=== PATIENT | female | born 1970 | race Caucasian/White ===

== ENCOUNTER 2021-10-27 12:13 | Inpatient (IN) | payer SELFPAY ==
[2021-10-27] VITALS (79 sets, daily range): BP systolic 99–136; BP diastolic 43–92; PULSE 73–118; RESP 15–43; TEMP 31–37.2; O2SAT 67–97
--- NOTE | 2021-10-27 12:30 | RT.EKG_ITS ---
APPROVED REPORT Exam: Resting ECG Reason for Exam: sob Patient Location: E HR:112 bpm ECG Measurements Heart Rate 112 AXIS RI 136 P 44 QRSd 87 QRS 107 QT 320 T -9 QTc 437 Conclusion Sinus tachycardia...rate> 99
--- NOTE | 2021-10-27 12:49 | ED.GENADUL_ITS ---
Discharge Plan Disposition Patient Disposition: [facility] INPATIENT Condition: Serious Discharge Details Clinical Impression: COVID-19, Acute respiratory failure with hypoxia, Newly diagnosed diabetes Admit Date/Time: 10/27/21 15:55 Admit Provider: Aubrie Lewis Attending Provider: Aubrie Lewis Primary Care Provider: Suraj Laboy ED Provider: France Maynard Discharge Data Discharge Date/Time-TO BE ENTERED AT DEPARTURE: 10/27/21 17:32 Medical Decision Making Patient is a pleasant 51-year-old female presenting today with chief complaint of shortness of breath in the setting of being Covid positive. She reports that she was diagnosed Covid positive on October 19. States that her shortness of breath has remained fairly consistent throughout the entire time. She denies any chest pain. States that she is also having diarrhea. Describes general malaise, body ache fatigue. States that she has been sleeping frequently comes in today states that she is not getting any better and was having difficulty taking deep breath. Patient is not anticoagulated, no hormonal supplementation, no family history of blood clots. Patient is not a smoker. Patient is not vaccinated. On exam, patient appears acutely ill. She does demonstrate work of breathing with intercostal retractions and accessory muscle use. She does appear very fatigued. Is having difficulty with movements but again, appears very fatigue and coughs frequently. Her oxygen was initially 67% on room air. Nursing staff immediately applied nasal cannula which brought her up to 74%. He is currently on a nonrebreather at 80%. RT is coming in and will apply additional support. Her lungs are fairly clear although she has difficulty taking deep breaths. Concerned for her level of hypoxia. BiPAP being applied by RT. ECG ordered. No CP or symptoms of ACS. More concerned for severe COVID and possible complication such as PE. Will obtain labs. She appears dehydrated, will give 500cc bolus. Will give 6mg Dexamethasone, 200mg Remdesivir. Will give IV APAP for discomfort. Labs reviewed. No leukocytosis. Stable H&H. D-dimer is elevated at 2600, will obtain a CT for PE protocol. Lactate slightly elevated at 1.7. Patient has an anion gap of 17. BUN is elevated at 20. Glucose 419. Patient denies being diabetic but reports that she is not been seen by a doctor in many years because she is relatively healthy. Ferritin was elevated at 405. AST is elevated 64. We do not have any previous labs for comparison. Her LDH is elevated at 601, CRP over 25. Troponin within normal limits. Will add on an A1c. Patient reports that she is feeling improved with the BiPAP and oxygen has been maintained in the mid to high 90s. Patient is rotating from side to side to encourage alveolar recruitment. CT for PE protocol reviewed by radiologist: FINDINGS: Pulmonary arteries: No main pulmonary arterial embolism. Limited evaluation of the lobar and segmental branches. Aorta: Unremarkable. No aortic aneurysm. No aortic dissection. Lungs: There are bilateral, peripheral predominant ground-glass/airspace opacities in the lungs. Pleural spaces: Unremarkable. No pneumothorax. No pleural effusion. Heart: Unremarkable. No cardiomegaly. No pericardial effusion. Lymph nodes: Unremarkable. No enlarged lymph nodes. Bones/joints: Unremarkable. No acute fracture. Soft tissues: Unremarkable. IMPRESSION: 1. No central pulmonary embolism. 2. Commonly reported imaging features of viral pneumonia are present. Discussed findings. She continues to need BiPAP but does not appear to have further work of breathing. Will require admission. Consulted with hospitalist, she advised to start on abx. Also advised Baracitinib. She agrees to accept patient for ICU admission. HPI General Mode of arrival: wheelchair . Date/Time Provider Initiated Documentation: 10/27/21 12:26 . Limitations to Documentation: no limitations . Information obtained by: patient and RN notes reviewed . History of Present Illness 51 year old F presents to the emergency department with the chief complaint of SOB, COVID +, described as moderate, Quality is described as aching (reports general body aches), Patient started experiencing this day(s) (States positive test was October 19, became symptomatic a few days prior) and it has been constant. Immobilization improves symptom(s), Movement worsens symptoms (becomes more SOB with any movement) . Patient notes cough, fever/chills, headaches and shortness of breath; denies chest pain, diaphoresis, loss of appetite, nausea/vomiting (reports diarrhea) and rash. Patient did receive the following treatments prior to arrival, none Related Data Allergies Allergy/AdvReac Type Severity Reaction Status Date / Time No Known Allergies Allergy Unverified 11/10/14 11:13 General Stated Complaint: RespSymp TAVON: 2 Review of Systems Constitutional Constitutional: Reports as per HPI, Reports chills, Reports daytime sleepiness, Reports fatigue, Reports fever(s), Reports headache(s) and Reports lethargy ENT Ears, Nose, Mouth, and Throat: Denies dizziness and Reports headache(s) Cardiovascular Cardiovascular: Reports as per HPI, Denies chest pain, Denies chest pain at rest, Denies chest pain with activity, Denies radiating jaw, neck or arm pain, Reports dyspnea and Reports dyspnea on exertion Respiratory Respiratory: Reports as per HPI, Reports chest congestion, Reports cough, Denies pain on inspiration, Denies pain with cough, Reports dyspnea, Reports dyspnea on exertion and Denies wheezing Gastrointestinal Gastrointestinal: Reports as per HPI, Denies abdominal pain, Reports diarrhea, Denies nausea and Denies vomiting Musculoskeletal Musculoskeletal: Reports as per HPI and Denies back pain Integumentary/Breasts Skin/Breast: Reports as per HPI and Denies rash Neurologic Neurologic: Reports as per HPI, Denies dizziness and Reports headache(s) Endocrine Endocrine: Reports fatigue Allergic/Immunologic Allergic/Immunologic: Denies wheezing PFSH All Active Problems (Updated 10/29/21 @ 14:11 by SASMON Junior) Discharge planning issues (Acute) DVT prophylaxis (Acute) Newly diagnosed diabetes (Acute) Acute respiratory failure with hypoxia (Acute) COVID-19 (Acute) Medical History (Updated 10/29/21 @ 14:11 by SAMSON Junior) Obesity (BMI 30-39.9) Surgical History (Updated 08/20/18 @ 14:37 by [employer] [facility]) section Social History (Updated 10/27/21 @ 18:28 by Aubrie Lewis MD) Smoking/Tobacco Use Status: Never Smoking risk assessment performed?: Yes Alcohol Intake: never Drug use: Never Exam Const General: cooperative, not healthy appearing, comfortable, no acute distress, well developed, acute distress respiratory and ill appearing acutely Nutritional Appearance: well nourished and overweight Orientation: alert, awake and oriented x3 HENMT Head: normal to inspection Ears: hearing grossly normal bilaterally Neck Neck: normal visual inspection, full ROM and no lymphadenopathy Chest Chest: normal inspection of the chest, normal palpation of entire chest wall and no crepitus Resp Effort & Inspection: cough, labored, nasal flaring, respiratory distress, no stridor, tachypneic and uses accessory muscles Auscultation: clear to auscultation bilaterally (diminished), no rales, no rhonchi and no wheezes Cardio Rate: tachycardic Rhythm: regular rhythm Heart Sounds: S1 normal and S2 normal GI Inspection: normal to inspection, no edema and non-distended Palpation: soft, no hepatosplenomegaly, not firm, no guarding, not rigid and nontender Auscultation: normal bowel sounds Skin General skin exam: no rashes or lesions noted Trauma: no lacerations or abrasions Neuro General: patient alert, patient awake and patient oriented x3 Cognition: normal cognition Speech: speech normal Gait: other (patient in wheelchair) Extrem General: normal to inspection, capillary refill normal, no pedal edema and no calf tenderness Psych Appearance: grossly normal and well kempt Mental Status: mental status grossly normal Speech and Movement: speech and movement normal Course Vital Signs Vital signs: Vital Signs Temperature 37.2 C 10/27/21 12:30 Pulse 118 H 10/27/21 12:30 Blood Pressure 136/74 10/27/21 12:30 Pulse Oximetry 67 L 10/27/21 12:30 Temperature 37.2 C 10/27/21 12:30 Pulse 118 H 10/27/21 12:30 Blood Pressure 136/74 10/27/21 12:30 Pulse Oximetry 67 L 10/27/21 12:30 Oxygen Delivery Method Room Air 10/27/21 12:30 Oxygen Flow Rate 0 10/27/21 12:30 Critical Care Time Critical Care Time Critical Care Time: Yes Total Critical Care Time: 47 Attestation: 47 minutes of critical care time for management of respiratory distress
[2021-10-27 13:33] LABS: Lactate 1.7 mmol/L (0.6-1.4)
[2021-10-27 13:37] LABS: Abs Immature Grans 0.29 10^3/uL (0.0-0.06); HCT 41.1 % (36.0-46.0); HGB 13.1 g/dL (11.2-15.7); MCHC 31.9 % (32.0-36.0); MCV 87.8 fL (80-95); MPV 9.6 fL (8.0-11.0); Nucleated RBC 0 %; Platelet Count 415 10^3/uL (130-400); RBC 4.68 10^6/uL (3.93-5.22); WBC 7.22 10^3/uL (4.4-10.8)
[2021-10-27] MEDS: Normal Saline 500 ML IV (13:37)
[2021-10-27] MEDS: Dexamethasone 4 MG/ML VIAL 6 MG IVP (13:38)
[2021-10-27] MEDS: ACETAMINOPHEN 1,000 MG/100 ML BTL 400 MG IVPB (13:38)
[2021-10-27 13:51] LABS: ALT 49 U/L (14-59); AST 64 U/L (15-37); Absolute Lymphocyte Count 1.52 10^3/uL (1.2-3.4); Absolute Monocyte Count 0.29 10^3/uL (0.1-0.8); Absolute Neutrophil Count 5.13 10^3/uL (1.2-6.7); Albumin 2.3 g/dL (3.4-5.0); Alkaline Phosphatase 75 U/L (46-116); Anion Gap 17.1 mmol/L (3-11); BUN 20 mg/dL (7-18); Bands % 5; Bilirubin, Total 0.6 mg/dL (0.2-1.0); CO2 21.9 mmol/L (21.0-32.0); Calcium 8.9 mg/dL (8.5-10.1); Chloride 96 mmol/L (98-107); Estimated GFR 58.69 (mL/min/1.73m2); Glucose 419 mg/dL (74-106); LDH 601 U/L (81-234); Metamyelocytes % 1; Myelocytes % 3; Potassium 4.1 mmol/L (3.5-5.1); Sodium 135 mmol/L (136-145); Total Protein 8.1 g/dL (6.4-8.2); Troponin I < 50 ng/L (<or=60)
[2021-10-27 13:52] LABS: Diff Comment Manual Differential; RBC Morphology Normal
[2021-10-27 14:01] LABS: C-Reactive Protein > 25.00 mg/dL (0.0-0.3)
[2021-10-27] MEDS: REMDESIVIR 200 MG in Normal Saline 250 ML 250 MG IVPB (14:01)
[2021-10-27 14:03] LABS: Procalcitonin 1.7 ng/mL
[2021-10-27 14:06] LABS: D-Dimer 2602 ng/mlFEU (<500)
--- NOTE | 2021-10-27 14:07 | DI.CT_ITS ---
Exam(s) CT CHEST PE CTA EXAM: CT CHEST PE CTA CLINICAL HISTORY: COVID +, elevated dimer, hypoxic. TECHNIQUE: Imaging Protocol: CT angiography of the chest was performed using pulmonary embolus casandra col. Multi planar reconstructions were performed. CONTRAST MATERIAL: Intravenous: Omnipaque 350 Contrast volume: 100 cc COMPARISON: No exams were available for comparison FINDINGS: CHEST: PULMONARY ARTERIES: Less than optimal opacification of non central pulmonary arteries. There are no obvious central intraluminal filling defects to suggest acute pulmonary emboli of the central pulmona ry vasculature.. LUNGS: Extensive bilateral ground-glass infiltrates involving all lobes both lungs and not associated with pleural effusions.. Findings are highly suggestive of Covid-19 pneumonia. No focal findings i n trachea and mainstem bronchi. No bronchiectasis MEDIASTINUM: There is no hilar nor mediastinal adenopathy. Visualized thyroid unremarkable. CARDIAC: Heart size is upper normal. There is no pericardial effusion.Caliber of the thoracic aorta is within normal limits. There is no prominent shift of the interventricular septum. PARTIALLY VISUALIZED UPPERMOST ABDOMEN: Hepatic steatosis. No adrenal masses. OSSEOUS: No significant osseous lesions.. IMPRESSION: 1. No evidence of acute pulmonary emboli. No evidence of pulmonary infarction.No pleural effusions. 2. Extensive bilateral ground-glass infiltrates which are highly suspicious for viral Covid-19 pneumo ratna. 3. Hepatic steatosis incidentally noted. RADIATION DOSE DELIVERED: 655.76mGy.cm Total DLP DATA REPOSITORY: All CT scans at this facility are submitted to the National Radiology Data Registry (NRDR) Dose Index Registry (DIR) with the [employer] ([employer]). RADIATION OPTIMIZATION: All CT scans at this facility use at least one of these dose optimization te chniques: automated exposure control; mA and/or kV adjustment per patient size (includes targeted exa ms where dose is matched to clinical indication); or iterative reconstruction.
[2021-10-27 14:18] LABS: Ferritin 405 ng/mL (8-252)
[2021-10-27 14:50] LABS: Hemoglobin A1C 12.9 % (<5.7)
[2021-10-27] MEDS: Omnipaque 350 MG/ML 100 ML BTL IV (14:51)
[2021-10-27] MEDS: Normal Saline Flush 10 ML SYR IVP (14:52)
--- NOTE | 2021-10-27 15:42 | DI.VRAD_ITS ---
PROCEDURE INFORMATION: Exam: CTA Chest With Contrast Exam date and time: 10/27/2021 2:54 PM Age: 51 years old Clinical indication: Shortness of breath; Patient HX: + covid TECHNIQUE: Imaging protocol: Computed tomographic angiography of the chest with contrast. 3D rendering (Not supervised by radiologist): MIP and/or 3D reconstructed images were created by the technologist. Total images: 1922 Radiation optimization: All CT scans at this facility use at least one of these dose optimization techniques: automated exposure control; mA and/or kV adjustment per patient size (includes targeted exams where dose is matched to clinical indication); or iterative reconstruction. Contrast material: OMNIPAQUE 350; Contrast volume: 100 ml; Contrast route: INTRAVENOUS (IV); COMPARISON: No relevant prior studies available. FINDINGS: Pulmonary arteries: No main pulmonary arterial embolism. Limited evaluation of the lobar and segmental branches. Aorta: Unremarkable. No aortic aneurysm. No aortic dissection. Lungs: There are bilateral, peripheral predominant ground-glass/airspace opacities in the lungs. Pleural spaces: Unremarkable. No pneumothorax. No pleural effusion. Heart: Unremarkable. No cardiomegaly. No pericardial effusion. Lymph nodes: Unremarkable. No enlarged lymph nodes. Bones/joints: Unremarkable. No acute fracture. Soft tissues: Unremarkable. IMPRESSION: 1. No central pulmonary embolism. 2. Commonly reported imaging features of viral pneumonia are present. Dictated and Authenticated by: Emma Palmer MD. Ordering:GARETH Hough MD
--- NOTE | 2021-10-27 16:02 | HPE_ITS ---
Date of service: 10/27/21 Time of Service: 16:02 Assessment and Plan Assessment and plan (1) Acute respiratory failure with hypoxia: Status: Acute Assessment and plan: Multifactorial, due to COVID-19 as well as likely superimposed bacterial process. On CPAP. Encouage proning, IS/acapella. Treat with remdesivir, dexamethasone, baricitinib, empiric abx, vitamin C/D, zinc, atorvastatin. (2) COVID-19: Status: Acute Assessment and plan: As above (3) Newly diagnosed diabetes: Status: Acute Assessment and plan: Start on basal bolus insulin. Obtain UA. Suspect mild DKA, which we may be able to treat without IV insulin. Repeat BMP. (4) Metabolic acidosis: Status: Acute Assessment and plan: As above (5) Dehydration: Status: Acute Assessment and plan: Gentle IVF were given in the ED. The patient is able to hydrate herself orally - will avoid additional IVF at this time (6) Obesity (BMI 30-39.9): Assessment and plan: Needs outpatient follow up for lifestyle modifications (7) DVT prophylaxis: Status: Acute Assessment and plan: SC enoxaparin (8) Discharge planning issues: Status: Acute Assessment and plan: Full code Admit to ICu Total Critical Care Time 45 minutes History of Present Illness History of Present Illness Chief Complaint: Shortness of breath Narrative: Ms Humphries is a 51 year old female with no PMHx (per patient) but has BMI of 38.1 who was not vaccinated against COVID-19 and tested positive for COVID-19 on 10/19, who presented to [facility] ED today c/o shortness of breath and not feeling well. Her O2 sats on room air were 67%. She saturated 80% on 15 L nonrebreather, so she was transitioned to CPAP with FiO2 of 60% and pressure of 12, saturating 95%. Her CTA ruled out PE. She was initiated on dexamethasone, remdesivir, and baricitinib. Hospitalist admission to the ICU was requested. Of note, the patient did have evidence of elevated procalcitonin and was also written for empiric doxycycline/ceftriaxone. Her A1C is 12.9, of which she was made aware in the ED. Review of Systems All systems reviewed & are unremarkable except as noted in HPI and below PFSH All Active Problems (Updated 10/27/21 @ 18:01 by Aubrie Lewis MD) Discharge planning issues (Acute) DVT prophylaxis (Acute) Metabolic acidosis (Acute) Dehydration (Acute) Newly diagnosed diabetes (Acute) Acute respiratory failure with hypoxia (Acute) COVID-19 (Acute) Medical History (Updated 10/27/21 @ 18:01 by Aubrie Lewis MD) Obesity (BMI 30-39.9) Surgical History (Updated 08/20/18 @ 14:37 by [employer]) section Social History (Updated 10/27/21 @ 18:28 by Aubrie Lewis MD) Smoking/Tobacco Use Status: Never Smoking risk assessment performed?: Yes Alcohol Intake: never Drug use: Never Meds Allergies and Home Medications Allergies Allergy/AdvReac Type Severity Reaction Status Date / Time No Known Allergies Allergy Unverified 11/10/14 11:13 Exam Narrative Exam Narrative: General: Pleasant obese female who is laying on her L side, on CPAP, FiO2 60%, Pressure of 12, no visible work of breathing, but does not look well Neurological: A&Ox3, no focal deficits Psychiatric: Appropriate speech pattern/content Skin: Visible skin intact HEENT: Atraumatic, normocephalic, EOMI, unable to see mucuous membranes or examine oropharynx due to CPAP use, no submandibular or cervical lymphadeno jacques, no goiter or JVD Cardiovascular: RRR, no m/r/g Lungs: faint crackles L lung, diminished breath sounds R lung Gastrointestinal: soft, nontender, nondistended Genitourinary: deferred Extremities: trace edema BLE's, no lesions on B feet, trace pedal pulse RLE, +1 pedal pulse LLE, no clubbing/cyanosis Results Imaging Additional studies: CTA chest: 1. No evidence of acute pulmonary emboli. No evidence of pulmonary infarction.No pleural effusions. 2. Extensive bilateral ground-glass infiltrates which are highly suspicious for viral Covid-19 pneumonia. 3. Hepatic steatosis incidentally noted. EKG: ST, HR 112, no acute ischemia Labs Result diagrams: 10/27/21 13:25 10/27/21 13:25 Labs: Laboratory Results - last 24 hr 10/27/21 10/27/21 10/27/21 13:25 13:25 13:25 WBC 7.22 RBC 4.68 Hgb 13.1 Hct 41.1 MCV 87.8 MCH 28.0 MCHC 31.9 L RDW 13.0 Plt Count 415 H MPV 9.6 Immature Gran % See Differential Neutrophils % 66.0 Band Neutrophils % 5 Lymphocytes % 21.0 Monocytes % 4.0 Eosinophils % 0.0 Basophils % 0.0 Metamyelocytes % 1 Myelocytes % 3 Nucleated RBC % 0 Absolute Neutrophils 5.13 Absolute Lymphocytes 1.52 Absolute Monocytes 0.29 Absolute Eosinophils 0.00 Absolute Basophils 0.00 RBC Morphology Normal D-Dimer VBG Lactate 1.7 H Sodium 135 L Potassium 4.1 Chloride 96 L Carbon Dioxide 21.9 Anion Gap 17.1 H BUN 20 H Creatinine 1.0 Estimated GFR/1.73 m2 58.69 Glucose 419 H Hemoglobin A1c Calcium 8.9 Ferritin 405 H Total Bilirubin 0.6 AST 64 H ALT 49 Alkaline Phosphatase 75 Lactate Dehydrogenase 601 H Troponin I < 50 C-Reactive Protein > 25.00 H Total Protein 8.1 Albumin 2.3 L Procalcitonin 1.7 10/27/21 10/27/21 13:25 13:25 WBC RBC Hgb Hct MCV MCH MCHC RDW Plt Count MPV Immature Gran % Neutrophils % Band Neutrophils % Lymphocytes % Monocytes % Eosinophils % Basophils % Metamyelocytes % Myelocytes % Nucleated RBC % Absolute Neutrophils Absolute Lymphocytes Absolute Monocytes Absolute Eosinophils Absolute Basophils RBC Morphology D-Dimer 2602 H VBG Lactate Sodium Potassium Chloride Carbon Dioxide Anion Gap BUN Creatinine Estimated GFR/1.73 m2 Glucose Hemoglobin A1c 12.9 H Calcium Ferritin Total Bilirubin AST ALT Alkaline Phosphatase Lactate Dehydrogenase Troponin I C-Reactive Protein Total Protein Albumin Procalcitonin Last Vital Signs Temp 37.2 C 10/27/21 12:30 Pulse 103 H 10/27/21 14:41 Resp 18 10/27/21 15:41 BP 123/67 10/27/21 15:41 Pulse Ox 94 10/27/21 15:41
--- NOTE | 2021-10-27 16:22 | NUR.NOTE ---
1620 assisted OOB to commode. Patient very weak. Remains on Bipap.
[2021-10-27 16:39] LABS: Troponin I < 50 ng/L (<or=60)
[2021-10-27 17:00] LABS: Source Nasal/Nares
[2021-10-27 17:03] LABS: COVID-19 PCR POSITIVE (Negative)
[2021-10-27 19:07] LABS: Anion Gap 16.7 mmol/L (3-11); BUN 21 mg/dL (7-18); CO2 22.3 mmol/L (21.0-32.0); CREATININE 0.8 mg/dL (0.55-1.02); Calcium 8.3 mg/dL (8.5-10.1); Chloride 100 mmol/L (98-107); Glucose 384 mg/dL (74-106); Potassium 4.7 mmol/L (3.5-5.1); Sodium 139 mmol/L (136-145)
[2021-10-27] MEDS: Benzonatate 200 MG CAP PO (19:15)
[2021-10-27] MEDS: Atorvastatin 40 MG TAB PO (19:16)
[2021-10-27] MEDS: Famotidine 20 MG TAB PO (19:16)
[2021-10-27] MEDS: cefTRIAXone 2 GM/50 ML BAG IVPB (19:16)
[2021-10-27] MEDS: Normal Saline 500 ML 30 ML IV (19:16)
[2021-10-27] MEDS: Ascorbic Acid 500 MG TAB 1000 MG PO (19:16)
[2021-10-27] MEDS: Enoxaparin 40 MG/0.4 ML SYR SC (19:35)
[2021-10-27] MEDS: Insulin Aspart 300 UNITS/3 ML PEN SC ×2 (20:00→22:58)
[2021-10-27] MEDS: Ipratropium/Albuterol 4 GM 120 PUFF INH IH (20:42)
[2021-10-27 20:48] LABS: BE (Venous) -6 mmol/L (-2-3); HCO3 (Venous) 21 mmol/L (23-28); O2 Sat (Venous) 96 %; TCO2 (Venous) 19 mmol/L (24-29); pCO2 (Venous) 43 mmHg (41-51); pH (Venous) 7.29 (7.31-7.41); pO2 (Venous) 87 mmHg
[2021-10-27 20:50] LABS: Lactate 1.5 mmol/L (0.6-1.4)
[2021-10-27 21:13] LABS: Bilirubin Negative (Negative); Blood Large (Negative); Clarity Sl Cloudy (Clear); Glucose 500 mg/dL (Negative); Ketones 80 mg/dL (Negative); Leukocyte Esterase Negative (Negative); Nitrite Negative (Negative); Urobilinogen 0.2 EU/dL (Up TO 0.2); pH 5.5 (5-8)
[2021-10-27 21:22] LABS: Bacteria Few HPF (Negative); C & S Indicated? No/Sq. Contamination; Casts Negative LPF (Negative); Crystals Few Amorphous HPF (Negative); Epithelial Cells Moderate HPF (Negative); Mucus Negative (Negative); RBC >50 HPF (0-2)
[2021-10-27] MEDS: Melatonin 3 MG TAB PO (22:04)
[2021-10-27] MEDS: Insulin Glargine 300 UNITS/3 ML PEN 10 UNITS SC (22:58)
[2021-10-28] VITALS (119 sets, daily range): BP systolic 93–121; BP diastolic 44–66; PULSE 57–104; RESP 12–45; TEMP 31–38; O2SAT 83–98
[2021-10-28 02:16] LABS: Anion Gap 14.8 mmol/L (3-11); BUN 23 mg/dL (7-18); CO2 23.2 mmol/L (21.0-32.0); CREATININE 0.9 mg/dL (0.55-1.02); Calcium 8.6 mg/dL (8.5-10.1); Chloride 103 mmol/L (98-107); Glucose 359 mg/dL (74-106); Potassium 4.7 mmol/L (3.5-5.1); Sodium 141 mmol/L (136-145)
[2021-10-28 03:50] LABS: Anion Gap 13.9 mmol/L (3-11); BUN 26 mg/dL (7-18); CO2 24.1 mmol/L (21.0-32.0); CREATININE 0.9 mg/dL (0.55-1.02); Calcium 8.3 mg/dL (8.5-10.1); Chloride 102 mmol/L (98-107); Glucose 356 mg/dL (74-106); Potassium 4.5 mmol/L (3.5-5.1); Sodium 140 mmol/L (136-145)
[2021-10-28] MEDS: DOXYCYCLINE 100 MG in Normal Saline 100 ML IVPB ×3 (04:00→15:39)
[2021-10-28] MEDS: INSULIN REGULAR IN 0.9 % NACL 100 UNIT/100 ML BAG IV ×2 (05:00→07:11)
[2021-10-28 06:06] LABS: HCT 38.2 % (36.0-46.0); HGB 11.9 g/dL (11.2-15.7); MCH 27.9 pg (27.0-33.0); MCHC 31.2 % (32.0-36.0); MCV 89.5 fL (80-95); MPV 9.4 fL (8.0-11.0); Nucleated RBC 0 %; Platelet Count 407 10^3/uL (130-400); RBC 4.27 10^6/uL (3.93-5.22); RDW 13.4 % (11.7-14.6); RDW-SD 44.4 fL; WBC 5.92 10^3/uL (4.4-10.8)
[2021-10-28 06:34] LABS: ALT 45 U/L (14-59); AST 52 U/L (15-37); Albumin 1.9 g/dL (3.4-5.0); Alkaline Phosphatase 66 U/L (46-116); Anion Gap 14.1 mmol/L (3-11); BUN 24 mg/dL (7-18); Bilirubin, Direct 0.2 mg/dL (0.0-0.2); Bilirubin, Total 0.4 mg/dL (0.2-1.0); CO2 23.9 mmol/L (21.0-32.0); Calcium 8.4 mg/dL (8.5-10.1); Chloride 104 mmol/L (98-107); Estimated GFR 58.69 (mL/min/1.73m2); Glucose 357 mg/dL (74-106); Magnesium 2.7 mg/dL (1.8-2.4); PHOSPHORUS 3.6 mg/dL (2.6-4.7); Potassium 4.5 mmol/L (3.5-5.1); Sodium 142 mmol/L (136-145); Total Protein 7.1 g/dL (6.4-8.2)
[2021-10-28 06:35] LABS: C-Reactive Protein > 25.00 mg/dL (0.0-0.3)
[2021-10-28 06:37] LABS: Prothrombin Time 10.4 sec (9.3-11.0)
[2021-10-28 06:50] LABS: D-Dimer 2708 ng/mlFEU (<500)
[2021-10-28 06:59] LABS: Calculated LDL 99 mg/dL (<100); Cholesterol 156 mg/dL (<200); Ferritin 418 ng/mL (8-252); HDL Cholesterol 17 mg/dL (40-60); Triglyceride 203 mg/dL (<150)
[2021-10-28 07:17] LABS: Absolute Lymphocyte Count 0.83 10^3/uL (1.2-3.4); Absolute Monocyte Count 0.47 10^3/uL (0.1-0.8); Absolute Neutrophil Count 4.62 10^3/uL (1.2-6.7); Atypical Lymphocytes % 2; Bands % 5; Diff Comment Manual Differential; RBC Morphology Normal
--- NOTE | 2021-10-28 08:24 | SCONE_ITS ---
Date of service: 10/28/21 Time of Service: 08:24 [facility] All Active Problems (Updated 10/27/21 @ 18:01 by Aubrie Lewis MD) Discharge planning issues (Acute) DVT prophylaxis (Acute) Metabolic acidosis (Acute) Dehydration (Acute) Newly diagnosed diabetes (Acute) Acute respiratory failure with hypoxia (Acute) COVID-19 (Acute) Medical History (Updated 10/27/21 @ 18:01 by Aubrie Lewis MD) Obesity (BMI 30-39.9) Surgical History (Updated 08/20/18 @ 14:37 by [employer] [place]) section Social History (Updated 10/27/21 @ 18:28 by Aubrie Lewis MD) Smoking/Tobacco Use Status: Never Smoking risk assessment performed?: Yes Alcohol Intake: never Drug use: Never Results Last Vital Signs Temp 98.6 F 10/28/21 04:00 Pulse 79 10/28/21 05:15 Resp 33 H 10/28/21 05:20 BP 106/54 L 10/28/21 05:15 Pulse Ox 96 10/28/21 05:20 Labs Result diagrams: 10/28/21 05:28 10/28/21 05:28 Labs: Laboratory Results - last 24 hr 10/27/21 10/27/21 10/27/21 13:25 13:25 13:25 WBC 7.22 RBC 4.68 Hgb 13.1 Hct 41.1 MCV 87.8 MCH 28.0 MCHC 31.9 L RDW 13.0 Plt Count 415 H MPV 9.6 Immature Gran % See Differential Neutrophils % 66.0 Band Neutrophils % 5 Lymphocytes % 21.0 Atypical Lymphs % Monocytes % 4.0 Eosinophils % 0.0 Basophils % 0.0 Metamyelocytes % 1 Myelocytes % 3 Nucleated RBC % 0 Absolute Neutrophils 5.13 Absolute Lymphocytes 1.52 Absolute Monocytes 0.29 Absolute Eosinophils 0.00 Absolute Basophils 0.00 RBC Morphology Normal PT INR D-Dimer VBG pH VBG pCO2 VBG pO2 VBG HCO3 VBG Total CO2 VBG O2 Saturation VBG Base Excess VBG Lactate 1.7 H Sodium 135 L Potassium 4.1 Chloride 96 L Carbon Dioxide 21.9 Anion Gap 17.1 H BUN 20 H Creatinine 1.0 Estimated GFR/1.73 m2 58.69 Glucose 419 H Hemoglobin A1c Calcium 8.9 Phosphorus Magnesium Ferritin 405 H Total Bilirubin 0.6 Conjugated Bilirubin AST 64 H ALT 49 Alkaline Phosphatase 75 Lactate Dehydrogenase 601 H Troponin I < 50 C-Reactive Protein > 25.00 H Total Protein 8.1 Albumin 2.3 L Triglycerides Total Cholesterol LDL Cholesterol, Calc HDL Cholesterol Procalcitonin 1.7 Urine Color Urine Clarity Urine pH Ur Specific [place] Urine Protein Urine Ketones Urine Blood Urine Nitrite Urine Bilirubin Urine Urobilinogen Ur Leukocyte Esterase Urine RBC Urine WBC Ur Epithelial Cells Urine Crystals Urine Bacteria Urine Casts Urine Mucus Ur Culture Indicated? Urine Glucose COVID-19 Source SARS-CoV-2 (PCR) 10/27/21 10/27/21 10/27/21 13:25 13:25 16:00 WBC RBC Hgb Hct MCV MCH MCHC RDW Plt Count MPV Immature Gran % Neutrophils % Band Neutrophils % Lymphocytes % Atypical Lymphs % Monocytes % Eosinophils % Basophils % Metamyelocytes % Myelocytes % Nucleated RBC % Absolute Neutrophils Absolute Lymphocytes Absolute Monocytes Absolute Eosinophils Absolute Basophils RBC Morphology PT INR D-Dimer 2602 H VBG pH VBG pCO2 VBG pO2 VBG HCO3 VBG Total CO2 VBG O2 Saturation VBG Base Excess VBG Lactate Sodium Potassium Chloride Carbon Dioxide Anion Gap BUN Creatinine Estimated GFR/1.73 m2 Glucose Hemoglobin A1c 12.9 H Calcium Phosphorus Magnesium Ferritin Total Bilirubin Conjugated Bilirubin AST ALT Alkaline Phosphatase Lactate Dehydrogenase Troponin I < 50 C-Reactive Protein Total Protein Albumin Triglycerides Total Cholesterol LDL Cholesterol, Calc HDL Cholesterol Procalcitonin Urine Color Urine Clarity Urine pH Ur Specific [place] Urine Protein Urine Ketones Urine Blood Urine Nitrite Urine Bilirubin Urine Urobilinogen Ur Leukocyte Esterase Urine RBC Urine WBC Ur Epithelial Cells Urine Crystals Urine Bacteria Urine Casts Urine Mucus Ur Culture Indicated? Urine Glucose COVID-19 Source SARS-CoV-2 (PCR) 10/27/21 10/27/21 10/27/21 16:00 18:53 20:00 WBC RBC Hgb Hct MCV MCH MCHC RDW Plt Count MPV Immature Gran % Neutrophils % Band Neutrophils % Lymphocytes % Atypical Lymphs % Monocytes % Eosinophils % Basophils % Metamyelocytes % Myelocytes % Nucleated RBC % Absolute Neutrophils Absolute Lymphocytes Absolute Monocytes Absolute Eosinophils Absolute Basophils RBC Morphology PT INR D-Dimer VBG pH VBG pCO2 VBG pO2 VBG HCO3 VBG Total CO2 VBG O2 Saturation VBG Base Excess VBG Lactate Sodium 139 Potassium 4.7 Chloride 100 Carbon Dioxide 22.3 Anion Gap 16.7 H BUN 21 H Creatinine 0.8 Estimated GFR/1.73 m2 >= 60.00 Glucose 384 H Hemoglobin A1c Calcium 8.3 L Phosphorus Magnesium Ferritin Total Bilirubin Conjugated Bilirubin AST ALT Alkaline Phosphatase Lactate Dehydrogenase Troponin I C-Reactive Protein Total Protein Albumin Triglycerides Total Cholesterol LDL Cholesterol, Calc HDL Cholesterol Procalcitonin Urine Color Yellow Urine Clarity Sl Cloudy Urine pH 5.5 Ur Specific [place] 1.020 Urine Protein 30 H Urine Ketones 80 H Urine Blood Large H Urine Nitrite Negative Urine Bilirubin Negative Urine Urobilinogen 0.2 Ur Leukocyte Esterase Negative Urine RBC >50 H Urine WBC 3-5 Ur Epithelial Cells Moderate Urine Crystals Few Amorphous Urine Bacteria Few Urine Casts Negative Urine Mucus Negative Ur Culture Indicated? No/Sq. Contamination Urine Glucose 500 H COVID-19 Source Nasal/Nares SARS-CoV-2 (PCR) POSITIVE A* 10/27/21 10/27/21 10/28/21 20:35 20:35 01:50 WBC RBC Hgb Hct MCV MCH MCHC RDW Plt Count MPV Immature Gran % Neutrophils % Band Neutrophils % Lymphocytes % Atypical Lymphs % Monocytes % Eosinophils % Basophils % Metamyelocytes % Myelocytes % Nucleated RBC % Absolute Neutrophils Absolute Lymphocytes Absolute Monocytes Absolute Eosinophils Absolute Basophils RBC Morphology PT INR D-Dimer VBG pH 7.29 L VBG pCO2 43 VBG pO2 87 VBG HCO3 21 L VBG Total CO2 19 L VBG O2 Saturation 96 VBG Base Excess -6 L VBG Lactate 1.5 H Sodium 141 Potassium 4.7 Chloride 103 Carbon Dioxide 23.2 Anion Gap 14.8 H BUN 23 H Creatinine 0.9 Estimated GFR/1.73 m2 >= 60.00 Glucose 359 H Hemoglobin A1c Calcium 8.6 Phosphorus Magnesium Ferritin Total Bilirubin Conjugated Bilirubin AST ALT Alkaline Phosphatase Lactate Dehydrogenase Troponin I C-Reactive Protein Total Protein Albumin Triglycerides Total Cholesterol LDL Cholesterol, Calc HDL Cholesterol Procalcitonin Urine Color Urine Clarity Urine pH Ur Specific [place] Urine Protein Urine Ketones Urine Blood Urine Nitrite Urine Bilirubin Urine Urobilinogen Ur Leukocyte Esterase Urine RBC Urine WBC Ur Epithelial Cells Urine Crystals Urine Bacteria Urine Casts Urine Mucus Ur Culture Indicated? Urine Glucose COVID-19 Source SARS-CoV-2 (PCR) 10/28/21 10/28/21 10/28/21 03:32 05:28 05:28 WBC 5.92 RBC 4.27 Hgb 11.9 Hct 38.2 MCV 89.5 MCH 27.9 MCHC 31.2 L RDW 13.4 Plt Count 407 H MPV 9.4 Immature Gran % 0.0 Neutrophils % 73.0 Band Neutrophils % 5 Lymphocytes % 12.0 Atypical Lymphs % 2 Monocytes % 8.0 Eosinophils % 0.0 Basophils % 0.0 Metamyelocytes % Myelocytes % Nucleated RBC % 0 Absolute Neutrophils 4.62 Absolute Lymphocytes 0.83 L Absolute Monocytes 0.47 Absolute Eosinophils 0.00 Absolute Basophils 0.00 RBC Morphology Normal PT INR D-Dimer VBG pH VBG pCO2 VBG pO2 VBG HCO3 VBG Total CO2 VBG O2 Saturation VBG Base Excess VBG Lactate Sodium 140 142 Potassium 4.5 4.5 Chloride 102 104 Carbon Dioxide 24.1 23.9 Anion Gap 13.9 H 14.1 H BUN 26 H 24 H Creatinine 0.9 1.0 Estimated GFR/1.73 m2 >= 60.00 58.69 Glucose 356 H 357 H Hemoglobin A1c Calcium 8.3 L 8.4 L Phosphorus 3.6 Magnesium 2.7 H Ferritin 418 H Total Bilirubin 0.4 Conjugated Bilirubin 0.2 AST 52 H ALT 45 Alkaline Phosphatase 66 Lactate Dehydrogenase Troponin I C-Reactive Protein > 25.00 H Total Protein 7.1 Albumin 1.9 L Triglycerides 203 H Total Cholesterol 156 LDL Cholesterol, Calc 99 HDL Cholesterol 17 L Procalcitonin Urine Color Urine Clarity Urine pH Ur Specific [place] Urine Protein Urine Ketones Urine Blood Urine Nitrite Urine Bilirubin Urine Urobilinogen Ur Leukocyte Esterase Urine RBC Urine WBC Ur Epithelial Cells Urine Crystals Urine Bacteria Urine Casts Urine Mucus Ur Culture Indicated? Urine Glucose COVID-19 Source SARS-CoV-2 (PCR) 10/28/21 10/28/21 05:28 05:30 WBC RBC Hgb Hct MCV MCH MCHC RDW Plt Count MPV Immature Gran % Neutrophils % Band Neutrophils % Lymphocytes % Atypical Lymphs % Monocytes % Eosinophils % Basophils % Metamyelocytes % Myelocytes % Nucleated RBC % Absolute Neutrophils Absolute Lymphocytes Absolute Monocytes Absolute Eosinophils Absolute Basophils RBC Morphology PT 10.4 INR 1.0 D-Dimer 2708 H VBG pH VBG pCO2 VBG pO2 VBG HCO3 VBG Total CO2 VBG O2 Saturation VBG Base Excess VBG Lactate Sodium Cancelled Potassium Cancelled Chloride Cancelled Carbon Dioxide Cancelled Anion Gap Cancelled BUN Cancelled Creatinine Cancelled Estimated GFR/1.73 m2 Cancelled Glucose Cancelled Hemoglobin A1c Calcium Cancelled Phosphorus Magnesium Ferritin Total Bilirubin Conjugated Bilirubin AST ALT Alkaline Phosphatase Lactate Dehydrogenase Troponin I C-Reactive Protein Total Protein Albumin Triglycerides Total Cholesterol LDL Cholesterol, Calc HDL Cholesterol Procalcitonin Urine Color Urine Clarity Urine pH Ur Specific [place] Urine Protein Urine Ketones Urine Blood Urine Nitrite Urine Bilirubin Urine Urobilinogen Ur Leukocyte Esterase Urine RBC Urine WBC Ur Epithelial Cells Urine Crystals Urine Bacteria Urine Casts Urine Mucus Ur Culture Indicated? Urine Glucose COVID-19 Source SARS-CoV-2 (PCR)
--- NOTE | 2021-10-28 08:37 | W.PM.PROGNOT ---
Date of Service Date of service: 10/28/21 Time of Service: 12:07 Assessment and Plan Assessment and plan (1) Acute respiratory failure with hypoxia: Status: Acute Assessment and plan: Multifactorial, due to COVID-19 as well as likely superimposed bacterial process. No meaninful improvement today. Alternating between humidified heated high flow NC and CPAP. Encourage proning, IS/acapella. Continue remdesivir, dexamethasone, baricitinib, empiric abx, vitamin C/D, zinc, atorvastatin. Will give a dose of lasix x 1. (2) COVID-19: Status: Acute Assessment and plan: As above Predicted mortality rate is between 31 and 34.5% on this admission. Keep in ICU. (3) DKA (diabetic ketoacidosis): Status: Acute Assessment and plan: Continue insulin infusion. The patient already received basal insulin last night but I will increase the lantus dose to 20 units tonight. I suspect that being on dexamethasone is not helping get out of the DKA. Trend Chemistries. (4) Newly diagnosed diabetes: Status: Acute Assessment and plan: A1C 12.9. In DKA as above. DM education ordered and patient is aware of the diagnosis. (5) Metabolic acidosis: Status: Acute Assessment and plan: As above (6) Dehydration: Status: Resolved Assessment and plan: At this point, she is fluid overloaded. Will give 1 dose of lasix 20 mg IV. (7) Obesity (BMI 30-39.9): Assessment and plan: Needs outpatient follow up for lifestyle modifications Will check TSH. (8) DVT prophylaxis: Status: Acute Assessment and plan: SC enoxaparin (9) Discharge planning issues: Status: Acute Assessment and plan: Full code Keep in ICU. Total Critical Care Time 45 minutes Subjective Subjective Interval history since last seen: Ms Humphries says she feels better today. Her breathing is better and she feels less achy. She is thirsty and requests water. In DKA and started on insulin gtt. On insulin gtt still. Bloodwork at noon to be collected. CPAP 60% PEEP of 12 overnight. On Humidified heated high flow NC now, 40L 80% FiO2 (we are dialing up L flow and going to try to titrate down the FiO2). Failed high flow overnight. Refused hyatt last night but we will try to convince her again today. Exam Narrative Exam Narrative: General: Pleasant obese female who is on humidified heated high flow NC at the time of me seeing her, mildly tachypneic (40L 80% FiO2 O2 sat 90%). HEENT: EOMI, MMM Heart: RRR, no m/r/g Lungs: Rales R lung field (laying on L side); diminished breath sounds L lung Abdomen: soft, nontender, nondistended Extremities: trace edema BLE's Objective Last Vital Signs Temp 37 C 10/28/21 04:00 Pulse 79 10/28/21 05:15 Resp 33 H 10/28/21 05:20 BP 106/54 L 10/28/21 05:15 Pulse Ox 96 10/28/21 05:20 Laboratory Results - last 24 hr 10/27/21 10/27/21 10/27/21 13:25 13:25 13:25 WBC 7.22 RBC 4.68 Hgb 13.1 Hct 41.1 MCV 87.8 MCH 28.0 MCHC 31.9 L RDW 13.0 Plt Count 415 H MPV 9.6 Immature Gran % See Differential Neutrophils % 66.0 Band Neutrophils % 5 Lymphocytes % 21.0 Atypical Lymphs % Monocytes % 4.0 Eosinophils % 0.0 Basophils % 0.0 Metamyelocytes % 1 Myelocytes % 3 Nucleated RBC % 0 Absolute Neutrophils 5.13 Absolute Lymphocytes 1.52 Absolute Monocytes 0.29 Absolute Eosinophils 0.00 Absolute Basophils 0.00 RBC Morphology Normal PT INR D-Dimer VBG pH VBG pCO2 VBG pO2 VBG HCO3 VBG Total CO2 VBG O2 Saturation VBG Base Excess VBG Lactate 1.7 H Sodium 135 L Potassium 4.1 Chloride 96 L Carbon Dioxide 21.9 Anion Gap 17.1 H BUN 20 H Creatinine 1.0 Estimated GFR/1.73 m2 58.69 Glucose 419 H Hemoglobin A1c Calcium 8.9 Phosphorus Magnesium Ferritin 405 H Total Bilirubin 0.6 Conjugated Bilirubin AST 64 H ALT 49 Alkaline Phosphatase 75 Lactate Dehydrogenase 601 H Troponin I < 50 C-Reactive Protein > 25.00 H Total Protein 8.1 Albumin 2.3 L Triglycerides Total Cholesterol LDL Cholesterol, Calc HDL Cholesterol Procalcitonin 1.7 Urine Color Urine Clarity Urine pH Ur Specific [place] Urine Protein Urine Ketones Urine Blood Urine Nitrite Urine Bilirubin Urine Urobilinogen Ur Leukocyte Esterase Urine RBC Urine WBC Ur Epithelial Cells Urine Crystals Urine Bacteria Urine Casts Urine Mucus Ur Culture Indicated? Urine Glucose COVID-19 Source SARS-CoV-2 (PCR) 10/27/21 10/27/21 10/27/21 13:25 13:25 16:00 WBC RBC Hgb Hct MCV MCH MCHC RDW Plt Count MPV Immature Gran % Neutrophils % Band Neutrophils % Lymphocytes % Atypical Lymphs % Monocytes % Eosinophils % Basophils % Metamyelocytes % Myelocytes % Nucleated RBC % Absolute Neutrophils Absolute Lymphocytes Absolute Monocytes Absolute Eosinophils Absolute Basophils RBC Morphology PT INR D-Dimer 2602 H VBG pH VBG pCO2 VBG pO2 VBG HCO3 VBG Total CO2 VBG O2 Saturation VBG Base Excess VBG Lactate Sodium Potassium Chloride Carbon Dioxide Anion Gap BUN Creatinine Estimated GFR/1.73 m2 Glucose Hemoglobin A1c 12.9 H Calcium Phosphorus Magnesium Ferritin Total Bilirubin Conjugated Bilirubin AST ALT Alkaline Phosphatase Lactate Dehydrogenase Troponin I < 50 C-Reactive Protein Total Protein Albumin Triglycerides Total Cholesterol LDL Cholesterol, Calc HDL Cholesterol Procalcitonin Urine Color Urine Clarity Urine pH Ur Specific [place] Urine Protein Urine Ketones Urine Blood Urine Nitrite Urine Bilirubin Urine Urobilinogen Ur Leukocyte Esterase Urine RBC Urine WBC Ur Epithelial Cells Urine Crystals Urine Bacteria Urine Casts Urine Mucus Ur Culture Indicated? Urine Glucose COVID-19 Source SARS-CoV-2 (PCR) 10/27/21 10/27/21 10/27/21 16:00 18:53 20:00 WBC RBC Hgb Hct MCV MCH MCHC RDW Plt Count MPV Immature Gran % Neutrophils % Band Neutrophils % Lymphocytes % Atypical Lymphs % Monocytes % Eosinophils % Basophils % Metamyelocytes % Myelocytes % Nucleated RBC % Absolute Neutrophils Absolute Lymphocytes Absolute Monocytes Absolute Eosinophils Absolute Basophils RBC Morphology PT INR D-Dimer VBG pH VBG pCO2 VBG pO2 VBG HCO3 VBG Total CO2 VBG O2 Saturation VBG Base Excess VBG Lactate Sodium 139 Potassium 4.7 Chloride 100 Carbon Dioxide 22.3 Anion Gap 16.7 H BUN 21 H Creatinine 0.8 Estimated GFR/1.73 m2 >= 60.00 Glucose 384 H Hemoglobin A1c Calcium 8.3 L Phosphorus Magnesium Ferritin Total Bilirubin Conjugated Bilirubin AST ALT Alkaline Phosphatase Lactate Dehydrogenase Troponin I C-Reactive Protein Total Protein Albumin Triglycerides Total Cholesterol LDL Cholesterol, Calc HDL Cholesterol Procalcitonin Urine Color Yellow Urine Clarity Sl Cloudy Urine pH 5.5 Ur Specific [place] 1.020 Urine Protein 30 H Urine Ketones 80 H Urine Blood Large H Urine Nitrite Negative Urine Bilirubin Negative Urine Urobilinogen 0.2 Ur Leukocyte Esterase Negative Urine RBC >50 H Urine WBC 3-5 Ur Epithelial Cells Moderate Urine Crystals Few Amorphous Urine Bacteria Few Urine Casts Negative Urine Mucus Negative Ur Culture Indicated? No/Sq. Contamination Urine Glucose 500 H COVID-19 Source Nasal/Nares SARS-CoV-2 (PCR) POSITIVE A* 10/27/21 10/27/21 10/28/21 20:35 20:35 01:50 WBC RBC Hgb Hct MCV MCH MCHC RDW Plt Count MPV Immature Gran % Neutrophils % Band Neutrophils % Lymphocytes % Atypical Lymphs % Monocytes % Eosinophils % Basophils % Metamyelocytes % Myelocytes % Nucleated RBC % Absolute Neutrophils Absolute Lymphocytes Absolute Monocytes Absolute Eosinophils Absolute Basophils RBC Morphology PT INR D-Dimer VBG pH 7.29 L VBG pCO2 43 VBG pO2 87 VBG HCO3 21 L VBG Total CO2 19 L VBG O2 Saturation 96 VBG Base Excess -6 L VBG Lactate 1.5 H Sodium 141 Potassium 4.7 Chloride 103 Carbon Dioxide 23.2 Anion Gap 14.8 H BUN 23 H Creatinine 0.9 Estimated GFR/1.73 m2 >= 60.00 Glucose 359 H Hemoglobin A1c Calcium 8.6 Phosphorus Magnesium Ferritin Total Bilirubin Conjugated Bilirubin AST ALT Alkaline Phosphatase Lactate Dehydrogenase Troponin I C-Reactive Protein Total Protein Albumin Triglycerides Total Cholesterol LDL Cholesterol, Calc HDL Cholesterol Procalcitonin Urine Color Urine Clarity Urine pH Ur Specific [place] Urine Protein Urine Ketones Urine Blood Urine Nitrite Urine Bilirubin Urine Urobilinogen Ur Leukocyte Esterase Urine RBC Urine WBC Ur Epithelial Cells Urine Crystals Urine Bacteria Urine Casts Urine Mucus Ur Culture Indicated? Urine Glucose COVID-19 Source SARS-CoV-2 (PCR) 10/28/21 10/28/21 10/28/21 03:32 05:28 05:28 WBC 5.92 RBC 4.27 Hgb 11.9 Hct 38.2 MCV 89.5 MCH 27.9 MCHC 31.2 L RDW 13.4 Plt Count 407 H MPV 9.4 Immature Gran % 0.0 Neutrophils % 73.0 Band Neutrophils % 5 Lymphocytes % 12.0 Atypical Lymphs % 2 Monocytes % 8.0 Eosinophils % 0.0 Basophils % 0.0 Metamyelocytes % Myelocytes % Nucleated RBC % 0 Absolute Neutrophils 4.62 Absolute Lymphocytes 0.83 L Absolute Monocytes 0.47 Absolute Eosinophils 0.00 Absolute Basophils 0.00 RBC Morphology Normal PT INR D-Dimer VBG pH VBG pCO2 VBG pO2 VBG HCO3 VBG Total CO2 VBG O2 Saturation VBG Base Excess VBG Lactate Sodium 140 142 Potassium 4.5 4.5 Chloride 102 104 Carbon Dioxide 24.1 23.9 Anion Gap 13.9 H 14.1 H BUN 26 H 24 H Creatinine 0.9 1.0 Estimated GFR/1.73 m2 >= 60.00 58.69 Glucose 356 H 357 H Hemoglobin A1c Calcium 8.3 L 8.4 L Phosphorus 3.6 Magnesium 2.7 H Ferritin 418 H Total Bilirubin 0.4 Conjugated Bilirubin 0.2 AST 52 H ALT 45 Alkaline Phosphatase 66 Lactate Dehydrogenase Troponin I C-Reactive Protein > 25.00 H Total Protein 7.1 Albumin 1.9 L Triglycerides 203 H Total Cholesterol 156 LDL Cholesterol, Calc 99 HDL Cholesterol 17 L Procalcitonin Urine Color Urine Clarity Urine pH Ur Specific [place] Urine Protein Urine Ketones Urine Blood Urine Nitrite Urine Bilirubin Urine Urobilinogen Ur Leukocyte Esterase Urine RBC Urine WBC Ur Epithelial Cells Urine Crystals Urine Bacteria Urine Casts Urine Mucus Ur Culture Indicated? Urine Glucose COVID-19 Source SARS-CoV-2 (PCR) 10/28/21 10/28/21 05:28 05:30 WBC RBC Hgb Hct MCV MCH MCHC RDW Plt Count MPV Immature Gran % Neutrophils % Band Neutrophils % Lymphocytes % Atypical Lymphs % Monocytes % Eosinophils % Basophils % Metamyelocytes % Myelocytes % Nucleated RBC % Absolute Neutrophils Absolute Lymphocytes Absolute Monocytes Absolute Eosinophils Absolute Basophils RBC Morphology PT 10.4 INR 1.0 D-Dimer 2708 H VBG pH VBG pCO2 VBG pO2 VBG HCO3 VBG Total CO2 VBG O2 Saturation VBG Base Excess VBG Lactate Sodium Cancelled Potassium Cancelled Chloride Cancelled Carbon Dioxide Cancelled Anion Gap Cancelled BUN Cancelled Creatinine Cancelled Estimated GFR/1.73 m2 Cancelled Glucose Cancelled Hemoglobin A1c Calcium Cancelled Phosphorus Magnesium Ferritin Total Bilirubin Conjugated Bilirubin AST ALT Alkaline Phosphatase Lactate Dehydrogenase Troponin I C-Reactive Protein Total Protein Albumin Triglycerides Total Cholesterol LDL Cholesterol, Calc HDL Cholesterol Procalcitonin Urine Color Urine Clarity Urine pH Ur Specific [place] Urine Protein Urine Ketones Urine Blood Urine Nitrite Urine Bilirubin Urine Urobilinogen Ur Leukocyte Esterase Urine RBC Urine WBC Ur Epithelial Cells Urine Crystals Urine Bacteria Urine Casts Urine Mucus Ur Culture Indicated? Urine Glucose COVID-19 Source SARS-CoV-2 (PCR)
[2021-10-28] MEDS: Ipratropium/Albuterol 4 GM 120 PUFF INH IH ×4 (08:50→20:12)
[2021-10-28 08:59] LABS: Anion Gap 13.1 mmol/L (3-11); BUN 23 mg/dL (7-18); CO2 24.9 mmol/L (21.0-32.0); CREATININE 0.9 mg/dL (0.55-1.02); Calcium 8.4 mg/dL (8.5-10.1); Chloride 105 mmol/L (98-107); Glucose 358 mg/dL (74-106); Potassium 4.6 mmol/L (3.5-5.1); Sodium 143 mmol/L (136-145)
[2021-10-28] MEDS: Benzonatate 200 MG CAP PO ×3 (09:38→20:11)
[2021-10-28] MEDS: Dexamethasone 4 MG/ML VIAL 6 MG IVP (09:38)
[2021-10-28] MEDS: Famotidine 20 MG TAB PO ×2 (09:39→20:11)
[2021-10-28] MEDS: Ascorbic Acid 500 MG TAB 1000 MG PO ×2 (09:39→20:10)
[2021-10-28] MEDS: Cholecalciferol (Vitamin D3) 1,000 UNIT TAB 2000 UNITS PO (09:39)
[2021-10-28] MEDS: Zinc Sulfate 220 MG TAB PO (09:40)
[2021-10-28] MEDS: Normal Saline Flush 10 ML SYR IVP ×2 (09:41→14:11)
[2021-10-28] MEDS: Furosemide 20 MG/2 ML VIAL IVP (12:00)
[2021-10-28 12:55] LABS: Anion Gap 15.3 mmol/L (3-11); BUN 27 mg/dL (7-18); CO2 22.7 mmol/L (21.0-32.0); CREATININE 0.9 mg/dL (0.55-1.02); Calcium 8.6 mg/dL (8.5-10.1); Chloride 105 mmol/L (98-107); Glucose 348 mg/dL (74-106); Potassium 4.2 mmol/L (3.5-5.1); Sodium 143 mmol/L (136-145)
[2021-10-28] MEDS: Normal Saline 500 ML 30 ML IV (16:18)
[2021-10-28 18:02] LABS: Anion Gap 9.5 mmol/L (3-11); BUN 25 mg/dL (7-18); CO2 27.5 mmol/L (21.0-32.0); CREATININE 0.8 mg/dL (0.55-1.02); Calcium 8.6 mg/dL (8.5-10.1); Chloride 106 mmol/L (98-107); Glucose 206 mg/dL (74-106); Magnesium 2.7 mg/dL (1.8-2.4); Potassium 4.1 mmol/L (3.5-5.1); Sodium 143 mmol/L (136-145)
[2021-10-28] MEDS: Enoxaparin 40 MG/0.4 ML SYR SC (18:02)
[2021-10-28] MEDS: Atorvastatin 40 MG TAB PO (20:11)
[2021-10-28] MEDS: cefTRIAXone 2 GM/50 ML BAG IVPB (20:11)
[2021-10-28 21:42] LABS: Anion Gap 7.1 mmol/L (3-11); BUN 24 mg/dL (7-18); CO2 26.9 mmol/L (21.0-32.0); CREATININE 0.8 mg/dL (0.55-1.02); Calcium 8.5 mg/dL (8.5-10.1); Chloride 107 mmol/L (98-107); Glucose 141 mg/dL (74-106); Magnesium 2.6 mg/dL (1.8-2.4); PHOSPHORUS 2.4 mg/dL (2.6-4.7); Potassium 3.8 mmol/L (3.5-5.1); Sodium 141 mmol/L (136-145)
[2021-10-28] MEDS: Melatonin 3 MG TAB PO (22:51)
[2021-10-29] VITALS (48 sets, daily range): BP systolic 109–141; BP diastolic 54–90; PULSE 58–98; RESP 7–46; TEMP 36–38.5; O2SAT 28–95
[2021-10-29] MEDS: DOXYCYCLINE 100 MG in Normal Saline 100 ML IVPB ×2 (04:00→16:30)
[2021-10-29 07:05] LABS: Abs Immature Grans 0.28 10^3/uL (0.0-0.06); Absolute Basophil Count 0.02 10^3/uL (0.0-0.2); Absolute Eosinophil Count 0.03 10^3/uL (0.0-0.7); Absolute Lymphocyte Count 1.83 10^3/uL (1.2-3.4); Absolute Monocyte Count 0.55 10^3/uL (0.1-0.8); Absolute Neutrophil Count 6.44 10^3/uL (1.2-6.7); Basophils % 0.2; Eosinophils % 0.3; HCT 39.5 % (36.0-46.0); HGB 12.3 g/dL (11.2-15.7); Immature Grans % 3.1; MCH 27.6 pg (27.0-33.0); MCHC 31.1 % (32.0-36.0); MCV 88.6 fL (80-95); MPV 9.3 fL (8.0-11.0); Neutrophils % 70.4; Nucleated RBC 0 %; Platelet Count 465 10^3/uL (130-400); RBC 4.46 10^6/uL (3.93-5.22); RDW 13.2 % (11.7-14.6); RDW-SD 43.3 fL; WBC 9.15 10^3/uL (4.4-10.8)
[2021-10-29 07:21] LABS: ALT 55 U/L (14-59); AST 82 U/L (15-37); Albumin 2.1 g/dL (3.4-5.0); Alkaline Phosphatase 68 U/L (46-116); Anion Gap 10.3 mmol/L (3-11); BUN 27 mg/dL (7-18); Bilirubin, Direct 0.2 mg/dL (0.0-0.2); Bilirubin, Total 0.6 mg/dL (0.2-1.0); CO2 26.7 mmol/L (21.0-32.0); CREATININE 0.8 mg/dL (0.55-1.02); Calcium 8.8 mg/dL (8.5-10.1); Chloride 107 mmol/L (98-107); Glucose 197 mg/dL (74-106); PHOSPHORUS 3.4 mg/dL (2.6-4.7); Sodium 144 mmol/L (136-145); Total Protein 7.1 g/dL (6.4-8.2)
[2021-10-29 07:24] LABS: INR 1.1 (0.9-1.1); Prothrombin Time 10.7 sec (9.3-11.0)
[2021-10-29 07:36] LABS: Ferritin 464 ng/mL (8-252); Magnesium 2.5 mg/dL (1.8-2.4); TSH (W/Ref FT4) 0.83 uIU/mL (0.36-3.74)
[2021-10-29 07:57] LABS: C-Reactive Protein 12.91 mg/dL (0.0-0.3)
[2021-10-29 08:10] LABS: D-Dimer 2278 ng/mlFEU (<500)
--- NOTE | 2021-10-29 08:22 | W.PM.PROGNOT ---
Date of Service Date of service: 10/29/21 Time of Service: 12:00 Assessment and Plan Assessment and plan (1) Acute respiratory failure with hypoxia: Status: Acute Assessment and plan: Multifactorial, due to COVID-19 as well as likely superimposed bacterial process. No meaningful improvement, but also not getting worse. Alternating between humidified heated high flow NC and CPAP. Encourage proning, IS/acapella. The patient must be on CPAP at night/whenever she is asleep. Continue remdesivir, dexamethasone, baricitinib, empiric abx, vitamin C/D, zinc, atorvastatin. (2) COVID-19: Status: Acute Assessment and plan: While inflammatory markers are starting to trend in the right direction, clinically there has not been any meaningful improvement. Continue tx as above. Predicted mortality rate is between 31 and 34.5% on this admission. Keep in ICU. (3) DKA (diabetic ketoacidosis): Status: Resolved Assessment and plan: Transitioned to basal bolus insulin. Will add prandial scheduled insulin (carb counting). (4) Newly diagnosed diabetes: Status: Acute Assessment and plan: A1C 12.9. As above (5) Metabolic acidosis: Status: Resolved Assessment and plan: As above (6) Dehydration: Status: Resolved Assessment and plan: Euvolemic today. Will monitor. (7) Obesity (BMI 30-39.9): Assessment and plan: Needs outpatient follow up for lifestyle modifications TSH wnl. Does have evidence of hirsutism on my exam and could potentially have PCOS. (8) DVT prophylaxis: Status: Acute Assessment and plan: SC enoxaparin (9) Discharge planning issues: Status: Acute Assessment and plan: Full code Keep in ICU. Total Critical Care Time 30 minutes Subjective Subjective Interval history since last seen: Ms Humphries is on CPAP and answers in short answers. She says she is feeling a little better. She is not short of breath at rest on CPAP. Denies dizziness, headache, chest pain, nausea. 60L 80% FiO2 on high flow this morning. Was not on CPAP (unclear why). Did permit a hyatt. Did not prone last night. Did not lay side to side. Very compliant with it today during the day. Off of insulin gtt. Poor PO intake. Exam Narrative Exam Narrative: General: Pleasant obese female who is on CPAP, comfortable, A&Ox3, laying on her right side HEENT: EOMI, MMM Heart: RRR, no m/r/g Lungs: Rales L lung field (laying on L side); diminished breath sounds R lung Abdomen: soft, nontender, nondistended Extremities: trace edema BLE's Objective Last Vital Signs Temp 36.3 C L 10/29/21 06:00 Pulse 66 10/29/21 06:00 Resp 28 H 10/29/21 06:30 BP 129/71 10/29/21 06:00 Pulse Ox 88 L 10/29/21 06:30 Laboratory Results - last 24 hr 10/28/21 10/28/21 10/28/21 08:10 12:15 17:30 WBC RBC Hgb Hct MCV MCH MCHC RDW Plt Count MPV Immature Gran % Neutrophils % Lymphocytes % Monocytes % Eosinophils % Basophils % Nucleated RBC % Absolute Neutrophils Absolute Lymphocytes Absolute Monocytes Absolute Eosinophils Absolute Basophils PT INR D-Dimer Sodium 143 143 143 Potassium 4.6 4.2 4.1 Chloride 105 105 106 Carbon Dioxide 24.9 22.7 27.5 Anion Gap 13.1 H 15.3 H 9.5 BUN 23 H 27 H 25 H Creatinine 0.9 0.9 0.8 Estimated GFR/1.73 m2 >= 60.00 >= 60.00 >= 60.00 Glucose 358 H 348 H 206 H D Calcium 8.4 L 8.6 8.6 Phosphorus Magnesium 2.7 H Ferritin Total Bilirubin Conjugated Bilirubin AST ALT Alkaline Phosphatase C-Reactive Protein Total Protein Albumin TSH 10/28/21 10/29/21 10/29/21 21:15 06:30 06:30 WBC RBC Hgb Hct MCV MCH MCHC RDW Plt Count MPV Immature Gran % Neutrophils % Lymphocytes % Monocytes % Eosinophils % Basophils % Nucleated RBC % Absolute Neutrophils Absolute Lymphocytes Absolute Monocytes Absolute Eosinophils Absolute Basophils PT INR D-Dimer Sodium 141 144 Potassium 3.8 4.0 Chloride 107 107 Carbon Dioxide 26.9 26.7 Anion Gap 7.1 10.3 BUN 24 H 27 H Creatinine 0.8 0.8 Estimated GFR/1.73 m2 >= 60.00 >= 60.00 Glucose 141 H 197 H Calcium 8.5 8.8 Phosphorus 2.4 L 3.4 Magnesium 2.6 H 2.5 H Ferritin 464 H Total Bilirubin 0.6 Conjugated Bilirubin 0.2 AST 82 H ALT 55 Alkaline Phosphatase 68 C-Reactive Protein 12.91 H Total Protein 7.1 Albumin 2.1 L TSH 0.83 10/29/21 10/29/21 06:30 06:30 WBC 9.15 D RBC 4.46 Hgb 12.3 Hct 39.5 MCV 88.6 MCH 27.6 MCHC 31.1 L RDW 13.2 Plt Count 465 H MPV 9.3 Immature Gran % 3.1 Neutrophils % 70.4 Lymphocytes % 20.0 Monocytes % 6.0 Eosinophils % 0.3 Basophils % 0.2 Nucleated RBC % 0 Absolute Neutrophils 6.44 Absolute Lymphocytes 1.83 Absolute Monocytes 0.55 Absolute Eosinophils 0.03 Absolute Basophils 0.02 PT 10.7 INR 1.1 D-Dimer 2278 H Sodium Potassium Chloride Carbon Dioxide Anion Gap BUN Creatinine Estimated GFR/1.73 m2 Glucose Calcium Phosphorus Magnesium Ferritin Total Bilirubin Conjugated Bilirubin AST ALT Alkaline Phosphatase C-Reactive Protein Total Protein Albumin TSH
[2021-10-29] MEDS: Zinc Sulfate 220 MG TAB PO (08:33)
[2021-10-29] MEDS: Cholecalciferol (Vitamin D3) 1,000 UNIT TAB 2000 UNITS PO (08:33)
[2021-10-29] MEDS: Famotidine 20 MG TAB PO ×2 (08:33→19:39)
[2021-10-29] MEDS: Ascorbic Acid 500 MG TAB 1000 MG PO ×2 (08:33→19:38)
[2021-10-29] MEDS: Benzonatate 200 MG CAP PO ×3 (08:33→19:38)
[2021-10-29] MEDS: Insulin Glargine 300 UNITS/3 ML PEN 20 UNITS SC ×3 (08:41→20:10)
[2021-10-29] MEDS: Insulin Aspart 300 UNITS/3 ML PEN SC ×5 (08:41→22:00)
[2021-10-29] MEDS: Ipratropium/Albuterol 4 GM 120 PUFF INH IH ×4 (08:42→20:20)
[2021-10-29] MEDS: Normal Saline Flush 10 ML SYR IVP (08:50)
[2021-10-29] MEDS: Dexamethasone 4 MG/ML VIAL 6 MG IVP (08:50)
--- NOTE | 2021-10-29 10:23 | W.SURGCON ---
Date of service: 10/27/21 Time of Service: 20:24 Assessment and Plan Assessment and plan (1) Poor intravenous access: Status: Acute Assessment and plan: -Patient with adequate IV access currently, discussed with patient's nurse and hospitalist -Please call if this changes and if anesthesia provider is not able to place PICC or Midline as this would be the most optimal option for longer duration of use with less risk of infection and complications History of Present Illness Narrative: 51 year old female unvaccinated for Covid-19 who has tested positive since 10/19 now with worsening respiratory symptoms as well as undiagnosed diabetes in DKA. Patient initially had poor IV access and due to constraints of providers available to place PICC or midline I was asked to see the patient for potential central line or ultrasound guided IV access. Fortunately the patient has had adequate IV access thus not needed any further intervention. Consults Consult date: 10/27/21 Requesting physician: Aubrie Lewis Review of Systems Unobtainable due to (unobtainable due to critical clinical status) PFSH All Active Problems (Updated 10/29/21 @ 17:25 by Stephanie Peñaloza DO) Poor intravenous access (Acute) Discharge planning issues (Acute) DVT prophylaxis (Acute) Newly diagnosed diabetes (Acute) Acute respiratory failure with hypoxia (Acute) COVID-19 (Acute) Medical History (Updated 10/29/21 @ 17:25 by Stephanie Peñaloza DO) Obesity (BMI 30-39.9) Surgical History (Updated 08/20/18 @ 14:37 by Clutter [place]) section Social History (Updated 10/27/21 @ 18:28 by Aubrie Lewis MD) Smoking/Tobacco Use Status: Never Smoking risk assessment performed?: Yes Alcohol Intake: never Drug use: Never Exam Const General: well developed, acute distress respiratory and ill appearing Nutritional Appearance: obese Orientation: other (resting with eyes closed on CPAP) HENMT Head: normal to inspection and normocephalic General nose exam: external nose normal Resp Effort & Inspection: labored, respiratory distress, tachypneic and other (on CPAP) Cardio Rate: tachycardic Rhythm: regular rhythm Results Last Vital Signs Temp 97.9 F 10/29/21 09:05 Pulse 76 10/29/21 08:01 Resp 29 H 10/29/21 10:00 BP 127/66 10/29/21 08:01 Pulse Ox 94 10/29/21 10:00 Labs Result diagrams: 10/29/21 06:30 10/29/21 06:30 Labs: Laboratory Results - last 24 hr 10/28/21 10/28/21 10/28/21 12:15 17:30 21:15 WBC RBC Hgb Hct MCV MCH MCHC RDW Plt Count MPV Immature Gran % Neutrophils % Lymphocytes % Monocytes % Eosinophils % Basophils % Nucleated RBC % Absolute Neutrophils Absolute Lymphocytes Absolute Monocytes Absolute Eosinophils Absolute Basophils PT INR D-Dimer Sodium 143 143 141 Potassium 4.2 4.1 3.8 Chloride 105 106 107 Carbon Dioxide 22.7 27.5 26.9 Anion Gap 15.3 H 9.5 7.1 BUN 27 H 25 H 24 H Creatinine 0.9 0.8 0.8 Estimated GFR/1.73 m2 >= 60.00 >= 60.00 >= 60.00 Glucose 348 H 206 H D 141 H Calcium 8.6 8.6 8.5 Phosphorus 2.4 L Magnesium 2.7 H 2.6 H Ferritin Total Bilirubin Conjugated Bilirubin AST ALT Alkaline Phosphatase C-Reactive Protein Total Protein Albumin TSH 10/29/21 10/29/21 10/29/21 06:30 06:30 06:30 WBC 9.15 D RBC 4.46 Hgb 12.3 Hct 39.5 MCV 88.6 MCH 27.6 MCHC 31.1 L RDW 13.2 Plt Count 465 H MPV 9.3 Immature Gran % 3.1 Neutrophils % 70.4 Lymphocytes % 20.0 Monocytes % 6.0 Eosinophils % 0.3 Basophils % 0.2 Nucleated RBC % 0 Absolute Neutrophils 6.44 Absolute Lymphocytes 1.83 Absolute Monocytes 0.55 Absolute Eosinophils 0.03 Absolute Basophils 0.02 PT INR D-Dimer Sodium 144 Potassium 4.0 Chloride 107 Carbon Dioxide 26.7 Anion Gap 10.3 BUN 27 H Creatinine 0.8 Estimated GFR/1.73 m2 >= 60.00 Glucose 197 H Calcium 8.8 Phosphorus 3.4 Magnesium 2.5 H Ferritin 464 H Total Bilirubin 0.6 Conjugated Bilirubin 0.2 AST 82 H ALT 55 Alkaline Phosphatase 68 C-Reactive Protein 12.91 H Total Protein 7.1 Albumin 2.1 L TSH 0.83 10/29/21 06:30 WBC RBC Hgb Hct MCV MCH MCHC RDW Plt Count MPV Immature Gran % Neutrophils % Lymphocytes % Monocytes % Eosinophils % Basophils % Nucleated RBC % Absolute Neutrophils Absolute Lymphocytes Absolute Monocytes Absolute Eosinophils Absolute Basophils PT 10.7 INR 1.1 D-Dimer 2278 H Sodium Potassium Chloride Carbon Dioxide Anion Gap BUN Creatinine Estimated GFR/1.73 m2 Glucose Calcium Phosphorus Magnesium Ferritin Total Bilirubin Conjugated Bilirubin AST ALT Alkaline Phosphatase C-Reactive Protein Total Protein Albumin TSH
--- NOTE | 2021-10-29 10:48 | INITIAL_ITS ---
- If Service Date Differs Date of service: 10/29/21 Time of Service: 10:48 Care Management Initial Assess REASON FOR HOSPITALIZATION:: Acute Hypoxic Respiratory Failure, Covid 19 PAST MEDICAL HISTORY/PAST SURGICAL HISTORY:: All Active Problems. Discharge pl anning issues (Acute). DVT prophylaxis (Acute). Metabolic acidosis (Acute). Dehydration (Acute). Newly diagnosed diabetes (Acute). Acute respiratory failure with hypoxia (Acute). COVID-19 (Acute). Medical History. Obesity (BMI 30-39.9). Surgical History. section PREVIOUS FUNCTIONAL STATUS/SOCIAL/FAMILY SUPPORTS:: Shira lives in [place] with her , Anthony. They have one daughter together, Judy, who is in the [employer] and is currently stationed in [place]. Shira has another daughter who she put up for adoption at , and they were recently reconnected, over 20 years later. 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 She is independent at baseline. CURRENT FUNCTIONAL STATUS:: Shira is currently on Covid 19 precautions, and wearing a CPAP mask, so she is unable to talk over the phone. CM contacted her , Anthony, who reported that he has been receiving updates from her nurses, and feels that she is receiving excellent care. CM inquired about Shira's insurance, and he stated that she does not currently have insurance, as her work insurance is scheduled to go into effect in November. CM discussed resources, including patient assistance. Anthony reported that he is going to look into the Cares Act, which he heard would cover the cost of hospitalization due to Covid 19. CM will continue to follow. ADVANCE DIRECTIVES:: None on file at [facility]. Has patient been provided with info about the portal/API?: No Did the patient sign up for the portal?: No CODE STATUS:: Full Code INSURANCE COVERAGE / FINANCIAL ISSUES:: Self Pay. Per pt's , her insurance through work will be in effect in November. CURRENT HOME/COMMUNITY SERVICES/EQUIPMENT:: No current services or equipment. PRIMARY CARE PHYSICIAN:: Suraj Laboy POTENTIAL DISCHARGE NEEDS:: Evaluations for further needs, follow up appointments. PATIENT/FAMILY EDUCATION NEEDS:: Review discharge instructions and limitations, discussion of self care needs including ask me three. ANTICIPATED BARRIERS TO DISCHARGE:: None identified. TRANSPORTATION:: Via private vehicle by family. PLAN:: Shira continues to have high supplemental oxygen requirements, and is being treated and monitored in the ICU. Oxygen will be weaned as tolerated. She may require home supplemental O2 upon discharge, coordinated by RT. Once she is medically cleared, she will return home. No anticipated services at this time. She will follow up with her PCP and discharge plan of care. CM will continue to follow.
[2021-10-29] MEDS: Acetaminophen 325 MG TAB PO ×2 (12:58→19:38)
[2021-10-29] MEDS: Enoxaparin 40 MG/0.4 ML SYR SC (18:12)
--- NOTE | 2021-10-29 18:59 | NUR.NOTE ---
Goal O2 saturation 90- 92% Pt on CPAP 60% /12 sat 93-94 at rest and abd proning. ABD proning completed X2 for 45 minutes in AM and in PM. Pt sat at the edge of bed with feet on the floor X2, ambulated 3 feet to sit in chair, sat dropped to 84 % on Optiflow 60l / 80% took a maximum of 15 minutes to recover back to sat 91-92%. Pt educated on the importance to wear the CPAP tonight and patient verbalized her agreement with the care plan
[2021-10-29] MEDS: Normal Saline 500 ML 30 ML IV (19:25)
[2021-10-29] MEDS: Atorvastatin 40 MG TAB PO (19:38)
[2021-10-29] MEDS: cefTRIAXone 2 GM/50 ML BAG IVPB (19:39)
[2021-10-29] MEDS: Melatonin 3 MG TAB PO (20:16)
[2021-10-30] VITALS (67 sets, daily range): BP systolic 115–134; BP diastolic 61–82; PULSE 49–90; RESP 19–47; TEMP 31–37; O2SAT 80–96
--- NOTE | 2021-10-30 | DI.US_ITS ---
APPROVED REPORT EXAM: Comprehensive 2D, Doppler, and color-flow Echocardiogram Patient Location: In-Patient Room/Bed: TCQ838 Chip Drier: Saundra Moreno RDCS (AE) Indications: PVC, Covid Other Information Study Quality: Fair. Technically limited study due to body habitus, inability to position patient. Conclusion Normal left ventricular wall thickness and chamber size. Estimated ejection fraction is 55 to 60%. There are no segmental wall motion abnormalities Normal right ventricular size and systolic function Both atria are normal in size There is no structural or hemodynamically significant valvular disease Wall motion Left Ventricle The left ventricle is normal size. The left ventricular systolic function is normal. The left ventric ular ejection fraction is within the normal range. There is normal left ventricular wall thickness. T here is normal LV segmental wall motion. LVEF is 57%. Right Ventricle Right ventricle is grossly normal in size. Right ventricular systolic function is grossly normal. Atria The left atrium size is normal. The right atrium size is normal. Aortic Valve The aortic valve is normal in structure. Aortic valve is trileaflet. There is no aortic valvular sten osis. No aortic regurgitation is present. Mitral Valve The mitral valve is normal in structure. No evidence of mitral valve stenosis. Trace mitral regurgita tion. Tricuspid Valve The tricuspid valve is normal in structure. There is no tricuspid valve stenosis. Trace tricuspid reg urgitation. Unable to assess PA pressure. Pulmonic Valve The pulmonary valve is normal in structure. There is no pulmonic valvular stenosis. Trace pulmonic re gurgitation. Great Vessels The aortic root is normal in size. The ascending aorta is normal in size. IVC is normal in size and c ollapses >50% with inspiration. 2D Dimensions IVSD d PLAX 0.87 cm F: 0.6-1.0 LV Vol A2C d MOD 96.0 mL LVPW d PLAX 0.87 cm F: 0.6 - 1.0 LV Vol A4C d MOD 71.9 mL LVID d PLAX 4.35 cm F: 3.8 - 5.2 LV EF A4C MOD 57.9 % LVDs 2.90 cm F: 2.2 - 3.5 LV EF A2C MOD 57.3 % Ao Root d 2.24 cm F: 2.7 - 3.3 LV EF Biplane MOD 56.3 % Ao Asc Diam d 2.98 cm F: 2.3 - 3.1 SV 49.55 mL LV EF Teichholz 61.4 % SV Index 25.20 mL/m2 LVEF (Bravo's) 56.27 % F: 54 - 74 LV Volume 66.42 mL F: 46 - 106 LV Volume Index 33.88 mL/m2 F: 29 - 61 LV Vol Biplane MOD 88.1 mL FS 32.70 % M-Mode TAPSE 2.66 cm (M/F) >1.7 LV Diastology MV E' medial 0.101 (>0.07 m/s) E/A Ratio 1.2 LV E/e MED 9.15 (<14) MV E Vmax 0.93 (0.4-1.3 m/s) MV E' lateral 0.094 (>0.1 m/s) MV A Vmax 0.80 (0.4-1.3 m/s) LV E/e LAT 9.85 (<14) MV E/A Ratio 1.13 MV E/E' medial 9.16 MV E/E' lateral 9.87 Aortic Valve LVOT Area 2.88 cm2 AoV Area Vmax 2.25 cm2 LVOT Vmax 1.30 m/s AoV Area/ BSA (Vmax) 1.14 cm2/m2 LVOT Mean Azael. 0.81 m/s CHRISTINE Mean Azael. 2.10 cm2 LVOT Peak Grad 6.8 mmHg CHRISTINE Mean Azael. Index 1.07 cm2/m2 LVOT Mean Grad 3.2 mmHg LVOT VTI 0.254 m LVOT Diam s 1.90 cm AoV Vmax 1.67 m/s Velocity Ratio 0.77 AoV Mean Azael. 1.12 m/s AoV Peak Grad 11.1 mmHg LVOT SV 73.15 mL AoV Mean Grad 5.8 mmHg AoV VTI 0.291 m AoV Area VTI 2.51 cm2 AoV Area/ BSA (VTI) 1.28 cm/m2 Mitral Valve MV DT 214 (160-240 msec) MV PHT 62 msec MV Area PHT 3.54 cm2 MV VTI 0.354 m MV Area VTI 2.07 (4.0-6.0 cm2) Pulmonary Valve PV Vmax 1.03 (0.5-1.5 m/s) RVOT Peak Gr. 1.32 mmHg PV Peak Grad 4.2 mmHg RVOT Mean Gr. 0.65 mmHg PV Mean Grad 2.1 mmHg RVOT VTI 0.116 m PV VTI 0.202 m RVOT Vmax 0.58 m/s
--- NOTE | 2021-10-30 | DI.US_ITS ---
Exam(s) US EXTREMITY VENOUS BI EXAM: US EXTREMITY VENOUS BI CLINICAL HISTORY: covid-19, worsening d-dimer TECHNIQUE: Grayscale, color, and doppler imaging of the deep venous system of both lower extremities was performed. COMPARISON: US US ECHOCARDIOGRAM from 10/30/2021 FINDINGS: There is no evidence of intraluminal thrombus and there is normal compression and augmentation demons trated within the common femoral veins, femoral veins, and popliteal veins of both lower extremities. In the calves the interrogated veins also exhibit normal compression/ augmentation properties. The greater saphenous veins also appear patent as do the saphenofemoral junctions bilaterally.. IMPRESSION: 1. No ultrasound evidence of DVT in either lower extremity. DATA REPOSITORY:
[2021-10-30] MEDS: DOXYCYCLINE 100 MG in Normal Saline 100 ML IVPB ×2 (03:44→18:57)
[2021-10-30 06:43] LABS: Abs Immature Grans 0.36 10^3/uL (0.0-0.06); Absolute Basophil Count 0.01 10^3/uL (0.0-0.2); Absolute Lymphocyte Count 0.88 10^3/uL (1.2-3.4); Absolute Monocyte Count 0.63 10^3/uL (0.1-0.8); Absolute Neutrophil Count 6.72 10^3/uL (1.2-6.7); Basophils % 0.1; HCT 35.4 % (36.0-46.0); HGB 11.4 g/dL (11.2-15.7); Immature Grans % 4.2; Lymphocytes % 10.2; MCHC 32.2 % (32.0-36.0); MPV 9.4 fL (8.0-11.0); Monocytes % 7.3; Neutrophils % 78.2; Nucleated RBC 0 %; Platelet Count 295 10^3/uL (130-400); RBC 4.07 10^6/uL (3.93-5.22); RDW 13.2 % (11.7-14.6); RDW-SD 41.8 fL
--- NOTE | 2021-10-30 06:53 | NUR.NOTE ---
Nursing Note: Patient was maintaining a gaol for oxygen from 90%-96% throughout the night. Pt turned from [id number], requires assisstance in repositioning herself to 3/4 to her stomach,positioned with several pillows every 2-3 hours. Pt was on CPAP fopr 6-7hours throughout the night. Pt desats to low 80s when pulling the Cpap mask/ HF nasal cannula in her sleep often. Increased FiO2 to 90% whenever repositioning pt.
[2021-10-30 06:55] LABS: INR 1.1 (0.9-1.1); Prothrombin Time 11.3 sec (9.3-11.0)
[2021-10-30 07:04] LABS: ALT 54 U/L (14-59); AST 57 U/L (15-37); Albumin 1.9 g/dL (3.4-5.0); Alkaline Phosphatase 71 U/L (46-116); Anion Gap 10.5 mmol/L (3-11); BUN 21 mg/dL (7-18); Bilirubin, Direct 0.2 mg/dL (0.0-0.2); Bilirubin, Total 0.7 mg/dL (0.2-1.0); C-Reactive Protein 10.05 mg/dL (0.0-0.3); CO2 25.5 mmol/L (21.0-32.0); CREATININE 0.7 mg/dL (0.55-1.02); Calcium 8.2 mg/dL (8.5-10.1); Chloride 103 mmol/L (98-107); Glucose 271 mg/dL (74-106); PHOSPHORUS 4.1 mg/dL (2.6-4.7); Sodium 139 mmol/L (136-145); Total Protein 6.5 g/dL (6.4-8.2)
[2021-10-30 07:18] LABS: D-Dimer 7429 ng/mlFEU (<500)
[2021-10-30 07:31] LABS: Ferritin 342 ng/mL (8-252)
--- NOTE | 2021-10-30 08:21 | W.PM.PROGNOT ---
Date of Service Date of service: 10/30/21 Time of Service: 09:40 Assessment and Plan Assessment and plan (1) Acute respiratory failure with hypoxia: Status: Acute Assessment and plan: Multifactorial, due to COVID-19 as well as likely superimposed bacterial process. Very high oxygen requirement on attempt to ambulate, but at rest seems to be stable. Continue to encourage sitting up/proning/IS/acapella. Alternating between humidified heated high flow NC and CPAP. The patient must be on CPAP at night/whenever she is asleep. Continue remdesivir, dexamethasone, baricitinib, empiric abx, vitamin C/D, zinc, atorvastatin. D-dimer did go up. Consider repeating CTA. I will get venous dopplers of BLE's. WIll give one dose of lasix given crackles R base and trace edema. (2) COVID-19: Status: Acute Assessment and plan: As above I am concerned about increase in d-dimer. Get venous dopplers of BLEs and consider repeating CTA. Continue tx as above. Predicted mortality rate is between 31 and 34.5% on this admission. Keep in ICU. (3) DKA (diabetic ketoacidosis): Status: Resolved Assessment and plan: Increase basal insulin. Continue scheduled prandial and corrective scale. Consider addition of NPH to cover for the steroid-induced hyperglycemia. (4) Newly diagnosed diabetes: Status: Acute Assessment and plan: A1C 12.9. As above (5) Metabolic acidosis: Status: Resolved Assessment and plan: As above (6) Dehydration: Status: Resolved Assessment and plan: Slightly fluid overloaded today - receiving 1 dose of lasix, as above (7) Obesity (BMI 30-39.9): Assessment and plan: Needs outpatient follow up for lifestyle modifications TSH wnl. Does have evidence of hirsutism on my exam and could potentially have PCOS. (8) DVT prophylaxis: Status: Acute Assessment and plan: SC enoxaparin (9) Discharge planning issues: Status: Acute Assessment and plan: Full code Keep in ICU. Total Critical Care Time 30 minutes Subjective Subjective Interval history since last seen: Sat up for supper, used CPAP last night FiO2 60%, PEEP of 12. This morning, was on humidified heated high flow NC 60 L 90 % FiO2 being moved to the chair. Did require addition of 20 L nonrebreather to not desaturate while moving. Now back to bed on high flow NC on 60% FiO2 while proning on her abdomen. Denied dizziness, chest pain, nausea, vomiting. Poor appetite. Thirsty. Exam Narrative Exam Narrative: General: Pleasant obese female, sitting up in a chair at the time of exam on humidified heated high flow nasal canula + nonrebreather, not appearing to be in acute distress HEENT: EOMI, MMM Heart: RRR, no m/r/g Lungs: Rales L lung base Abdomen: soft, nontender, nondistended Extremities: trace edema BLE's Objective Last Vital Signs Temp 36.3 C L 10/30/21 04:00 Pulse 51 L 10/30/21 06:01 Resp 27 H 10/30/21 06:01 BP 131/70 10/30/21 06:01 Pulse Ox 95 10/30/21 06:01 Laboratory Results - last 24 hr 10/28/21 10/30/21 10/30/21 05:28 06:15 06:15 WBC 8.60 RBC 4.07 Hgb 11.4 Hct 35.4 L MCV 87.0 MCH 28.0 MCHC 32.2 RDW 13.2 Plt Count 295 D MPV 9.4 Immature Gran % 4.2 Neutrophils % 78.2 Lymphocytes % 10.2 Monocytes % 7.3 Eosinophils % 0.0 Basophils % 0.1 Nucleated RBC % 0 Absolute Neutrophils 6.72 H Absolute Lymphocytes 0.88 L Absolute Monocytes 0.63 Absolute Eosinophils 0.00 Absolute Basophils 0.01 PT INR D-Dimer Sodium 139 Potassium 4.0 Chloride 103 Carbon Dioxide 25.5 Anion Gap 10.5 BUN 21 H D Creatinine 0.7 Estimated GFR/1.73 m2 >= 60.00 Glucose 271 H Calcium 8.2 L Phosphorus 4.1 Magnesium 2.0 Ferritin 342 H Total Bilirubin 0.7 Conjugated Bilirubin 0.2 AST 57 H ALT 54 Alkaline Phosphatase 71 C-Reactive Protein 10.05 H Total Protein 6.5 Albumin 1.9 L 25-OH Vitamin D Total 31.0 10/30/21 06:15 WBC RBC Hgb Hct MCV MCH MCHC RDW Plt Count MPV Immature Gran % Neutrophils % Lymphocytes % Monocytes % Eosinophils % Basophils % Nucleated RBC % Absolute Neutrophils Absolute Lymphocytes Absolute Monocytes Absolute Eosinophils Absolute Basophils PT 11.3 H INR 1.1 D-Dimer 7429 H Sodium Potassium Chloride Carbon Dioxide Anion Gap BUN Creatinine Estimated GFR/1.73 m2 Glucose Calcium Phosphorus Magnesium Ferritin Total Bilirubin Conjugated Bilirubin AST ALT Alkaline Phosphatase C-Reactive Protein Total Protein Albumin 25-OH Vitamin D Total
[2021-10-30] MEDS: Ipratropium/Albuterol 4 GM 120 PUFF INH IH ×3 (09:20→20:20)
[2021-10-30] MEDS: Ascorbic Acid 500 MG TAB 1000 MG PO ×2 (09:29→18:58)
[2021-10-30] MEDS: Zinc Sulfate 220 MG TAB PO (09:29)
[2021-10-30] MEDS: Dexamethasone 10 MG/ML VIAL 6 MG IVP (09:29)
[2021-10-30] MEDS: Normal Saline Flush 10 ML SYR IVP ×2 (09:29→18:58)
[2021-10-30] MEDS: Docusate Sodium 100 MG CAP PO (09:30)
[2021-10-30] MEDS: Famotidine 20 MG TAB PO ×2 (09:30→18:58)
[2021-10-30] MEDS: Benzonatate 200 MG CAP PO ×3 (09:30→18:58)
[2021-10-30] MEDS: Cholecalciferol (Vitamin D3) 1,000 UNIT TAB 2000 UNITS PO (09:30)
[2021-10-30] MEDS: Insulin Aspart 300 UNITS/3 ML PEN SC ×5 (09:31→22:35)
[2021-10-30] MEDS: Insulin Glargine 300 UNITS/3 ML PEN 25 UNITS SC (09:31)
--- NOTE | 2021-10-30 09:51 | DM INPTCON_ITS ---
Date of service: 10/30/21 Time of Service: 09:51 Diabetes Inpatient Consult DESCRIPTION/ASSESSMENT: Ms. Humphries presents with acute respiratory failure r/t COVID. She was also found to have DKA. A!C was 12.9. She is 160 cm and 94.4 kg. BMI is 36.9 kg/m2 c/w class 2 (moderate) obesity. Dr. Lewis notes hirsutism and that given her obesity and diabetes, she may have PCOS. Blood sugars are coming down, but still above target. She is on Lantus 25 units, b.i.d. Aspart 1 unit-10 CHO, and Aspart correction Estimated energy needs are 1700 kcal/day while in the hospital.(REE x 1.1) 1200 kcal/day for weight reduction when she is no longer acute. (REE x 1.1 -500 kcal/day ) INTERVENTION: When Ms. Humphries is feeling better, I will begin diabetes teaching as well as start on weight management. I will schedule her to see me as an outpatient as well. Perhaps a CGM upon discharge will be helpful and then we can review the data at her outpatient appointment. (If she wants to come here for outpatient nutrition counseling. She lives in [place] so she may want to go [facility]) She will likely benefit not only from a carbohydrate counting but also a low carbohydrate eating plan such as 15-30 grams of CHO per meal and higher protein. With regard to her blood sugars here in the hospital, we can see how her blood sugars do over the next two days. If still not at target would increase to 6 units b.i.d. Given her likely insulin resistance, she will likely have to work up to 9 units of Lantus b.i.d. Upon discharge, would recommend that she be started on semaglutide for both her diabetes and her weight. Semaglutide is now approved for weight loss however she would of course have to see how it is covered by her insurance given its very high cost. If at all possible would recommend that she not be discharged on Lantus given her need to lose weight. If she still requires Lantus upon discharge, we can work on getting off of it as an outpatient. PLAN: 1. Will continue to monitor nutritional status as well as blood sugars. 2. Will evaluate nutrition care plan ongoing and adjust as needed. Thank you for the consult. Time Spent in Nutritional Counseling and Treatment: 0
[2021-10-30] MEDS: Furosemide 20 MG/2 ML VIAL IVP (10:08)
--- NOTE | 2021-10-30 10:17 | PHA.REVIEW ---
Pharmacy Admission Review - Admission Clinical Review (Last Updated 10/27/21 @ 18:01 by Aubrie Lewis MD) Poor intravenous access (Acute) Discharge planning issues (Acute) DVT prophylaxis (Acute) Newly diagnosed diabetes (Acute) Acute respiratory failure with hypoxia (Acute) COVID-19 (Acute) No Known Allergies Allergy (Unverified 11/10/14 11:13) Resuscitation Status Full Code Height 5 ft 3 in Weight 94.4 kg - Renal Dosing Renal Dosing: BUN 21 mg/dL (7-18) H D 10/30/21 06:15 Creatinine 0.7 mg/dL (0.55-1.02) 10/30/21 06:15 Medications needing adjustments: Reviewed (Crcl ~105 mL/min using adjusted body weight, current meds okay) - Anticoagulation Anticoagulation: Hgb 11.4 g/dL (11.2-15.7) 10/30/21 06:15 Hct 35.4 % (36.0-46.0) L 10/30/21 06:15 Plt Count 295 10^3/uL (130-400) D 10/30/21 06:15 INR 1.1 (0.9-1.1) 10/30/21 06:15 Creatinine 0.7 mg/dL (0.55-1.02) 10/30/21 06:15 DVT Prophylaxis: Reviewed Medications: Enoxaparin Therapeutic Anticoagulation: N/A - Opiate Usage Evaluate Pain Scale/Pains Meds: N/A - Relevant Labs Sodium 139 mmol/L (136-145) 10/30/21 06:15 Potassium 4.0 mmol/L (3.5-5.1) 10/30/21 06:15 Chloride 103 mmol/L (98-107) 10/30/21 06:15 Phosphorus 4.1 mg/dL (2.6-4.7) 10/30/21 06:15 Magnesium 2.0 mg/dL (1.8-2.4) 10/30/21 06:15 C-Reactive Protein 10.05 mg/dL (0.0-0.3) H 10/30/21 06:15 Electrolytes, C-Reactive P, ESR: Reviewed - DM Control DM Control: Glucose 271 mg/dL (74-106) H 10/30/21 06:15 Hemoglobin A1c 12.9 % (<5.7) H 10/27/21 13:25 Finger Stick Blood Glucose 261 Insulin Dosing: Reviewed (Scheduled glargine, carb coverage and sliding scale aspart ordered. Glargine dose increased this morning.) - Heart Failure/MA Heart Failure/MA: Troponin I < 50 ng/L (<or=60) 10/27/21 16:00 EF%, AKASH's, B-Blockers, Diuretics: Reviewed - BP Control BP Control: Blood Pressure 120/66 Blood Pressure 131/70 Blood Pressure 123/66 Blood Pressure 115/66 Blood Pressure 122/82 If elevated: Reviewed (BP low to normal so far this admission, one elevated level. Has been within normal limits so far today.) - Qtc Review If Elevated: N/A (QTc 437 on admission) - IV to PO Switch IV Medications: Reviewed - Home Meds Home Med List reviewed: Reviewed (No home medications listed) - Current meds Current Medication Order Review: Reviewed - Comments Comments/Follow Ups: Watch VS, BG, labs and for med changes. Antibiotic Activity - Pharmacy Antibiotic Review Pharmacy Antibiotic Activity: Reviewed, no change (Ceftriaxone (day 4) and doxycycline (day 3) continue for likely superimposed bacterial process (elevated procal) per H&P. BC no growth @48 hours.)
--- NOTE | 2021-10-30 10:49 | PDOC.CMPRO ---
- If Service Date Differs Date of service: 10/30/21 Time of Service: 10:49 Care Management Progress Note S/O: Shira remains at ICU level of care, on Covid precautions, and unable to talk over the phone due to her high oxygen requirements. CM called and spoke to her RN, who stated that she is improved today, despite her high oxygen requirements. Per report, she has a new diagnosis of diabetes on this admission. Nursing is providing updates to her , Anthony. CM spoke to him yesterday, and he is very happy about the care she is receiving. CM will continue to follow. A: Shira is a 51 year old female admitted to [facility] on 10/27/21 with Acute hypoxic respiratory failure, Covid 19. P: Shira continues to have high supplemental oxygen requirements, and is being treated and monitored in the ICU. Oxygen will be weaned as tolerated. She may require home supplemental O2 upon discharge, coordinated by RT. Once she is medically cleared, she will return home. No anticipated services at this time. She will follow up with her PCP and discharge plan of care. CM will continue to follow.
--- NOTE | 2021-10-30 11:15 | NUR.NOTE ---
Addendum entered by Yue Lin 10/30/21 18:25: Shift Totals: (approximate) OOB: 2.75hrs IS Peak: 600ml Proned: 1.5hrs CPAP 1.5 hrs Max Activity Level: OOB and walked 4 feet to chair, gets OOB w/o assistance Equipment: CPAP: rest - 12PEEP, 60%, 94% HFNC: Rest - 60L, 75%, 94% HFNC: OOB - 60L, 93%, 94% (only desatted 90% up to chair walking 4 feet) Addendum entered by Yue Lin 10/30/21 16:42: PM Update: CPAP 0586-9335 (1.5 hours) - 12 PEEP, 60% - 94 to 96% sp02 OOB 1610- - HFNC 60/90% (had seconds long desat to 80% and recovered within 3-5 min to low 90s when resting) - Walked 5 feet to chair and sat, able to move self more independently compared to AM, texting I/S x 5 and Acapella -600ml Original Note: OOB 3539-3123 (1.5hrs) - HFNC 60/90% + non-rebreather 15+L = sp02 90% to get to chair, SOB 1-2 min - HFNC 60/90% only to get back to bed = 90% Proned 1030-still proning at 1117 - HFNC 60L/65% = sp02 90-91% I/S 10x 250ml Acapella 10x Nursing Note:
--- NOTE | 2021-10-30 12:15 | PUCC_ITS ---
General Date of Service Date of service: 10/30/21 Time of Service: 08:30 Reason for Admission to ICU: COVID-19 Assessment and Plan Assessment and plan (1) DKA (diabetic ketoacidosis): Status: Resolved (2) Acute respiratory failure with hypoxia: Status: Acute (3) COVID-19: Status: Acute (4) Obesity (BMI 30-39.9): Assessment and plan: This is a 51 yo woman admitted with severe COVID pneumonia. She is cooperative with CPAP therapy and HFNC during the day. This should be continued to facilitate ambulation and eating throughout the day. Her inflammatory markers were elevated and so is on barcitinib. She was also found to be in mild DKA that was treated appropriately without an insulin drip. Her glucose is much better controlled, albeit with alot of insulin. She should work on getting out of bed to a chair if safe. Recommendations Pulmonary: Hypoxic respiratory failure - CPAP at night, HFNC during the day - wean FiO2 as able - Acapella and IS - OOB to chair is safe - even to negative fluid balance daily Cardiac: No acute concerns Renal: No acute concerns I&O: Intake & Output 10/27/21 10/28/21 10/29/21 10/30/21 23:59 23:59 23:59 23:59 Intake Total 1230 / 1470 712.533 / 592.258 3132.5 / 2592.5 147.5 / 147.5 Output Total 500 / 500 1550 / 1550 1750 / 1750 1100 / 1100 Balance 730 / 970 -837.467 / -837.467 842.5 / 842.5 -952.5 / -952.5 Weight 97.2 kg 99.1 kg 94.4 kg Daily Fluid Goal:: Negative daily balance GI Nutrition: PO diet ok Date of Last Bowel Movement: 10/27/21 Infectious Disease: COVID-19 - agree with barcitinib, remdesivir and Decadron - continue with ceftriaxone and doxycycline given possible bacterial infection as well - urine antigens for strep pneumo and legionella ordered - sputum culture ordered - if able to produce sputum Hematologic: No acute concerns - if D-dimer continues to increase with other inflammatory markers decreasing, can consider investigating for DVT Neurologic: No acute concerns Endocrine: DKA, resolved - on Lantus 30bid as well as prandial insulin - glucose still elevated - goal glucose 140-180 - will leave insulin regimen dosing to primary service Lines: PIV - recommend PICC line due to poor IV access and projected length of stay with need for IV medications Prophylaxis: famotidine and Lovenox Code Status: Resuscitation Status Full Code Subjective Critical and life-threatening events over the past 24 hours: This is a 51 yo female with obesity who presents with shortness of breath found to have COVID-19 PNA as well as newly diagnosed diabetes with an A1C of 12.9. She was requiring HFNC and CPAP and so was admitted to the ICU. She was started on remdisivir, barcitinib and Decadron. Her procalcitonin was elevated and so was started on ceftriaxone and doxycycline for CAP coverage. Her chest CT was significant for no PE and with multi-lobar ground gladd opacities consistent with COVID. Today she states that her breathing is improved and she does feel better. She is quite weak. She is unvaccinated and when asked about the reasons for not receiving vaccination she simply states I just didn't get to it. We discussed in depth the importance of receiving vaccination after her discharge and that if she does not do this then she is at risk for ivonne COVID again. She seems to understand this and knows the importance of participating with getting out of bed and using her IS and Acapella. Exam Const General: no acute distress Nutritional Appearance: obese [facility] Head: normocephalic Ears: external ears normal and no periauricular adenopathy General nose exam: nasal mucous membranes and turbinates normal Face and sinus: sinuses nontender Mouth: oropharynx normal and moist mucous membranes Teeth and gingiva: dentition normal Eyes General: appearance normal, both eyes and all related structures Pupils: PERRL Neck Neck: normal visual inspection and no lymphadenopathy Chest Chest: normal inspection of the chest Resp Effort & Inspection: normal respiratory effort Auscultation: clear to auscultation bilaterally, no rales, no rhonchi and no wheezes Cardio Rate: regular rate Rhythm: regular rhythm Heart Sounds: S1 normal, S2 normal and no murmurs Pulses: radial pulses present bilaterally GI Inspection: normal to inspection Palpation: soft Skin General skin exam: no rashes or lesions noted Neuro General: patient alert, patient awake and patient oriented x3 Extrem General: no clubbing, cyanosis or edema Psych Mental Status: mental status grossly normal Affect: normal affect Attitude: cooperative Most Recent VS/Results Last Vital Signs Temp 35.9 C L 10/30/21 08:39 Pulse 70 10/30/21 10:12 Resp 43 H 10/30/21 11:12 BP 115/63 10/30/21 10:12 Pulse Ox 91 L 10/30/21 11:12 Laboratory Results - last 24 hr 10/28/21 10/30/21 10/30/21 05:28 06:15 06:15 WBC 8.60 RBC 4.07 Hgb 11.4 Hct 35.4 L MCV 87.0 MCH 28.0 MCHC 32.2 RDW 13.2 Plt Count 295 D MPV 9.4 Immature Gran % 4.2 Neutrophils % 78.2 Lymphocytes % 10.2 Monocytes % 7.3 Eosinophils % 0.0 Basophils % 0.1 Nucleated RBC % 0 Absolute Neutrophils 6.72 H Absolute Lymphocytes 0.88 L Absolute Monocytes 0.63 Absolute Eosinophils 0.00 Absolute Basophils 0.01 PT INR D-Dimer Sodium 139 Potassium 4.0 Chloride 103 Carbon Dioxide 25.5 Anion Gap 10.5 BUN 21 H D Creatinine 0.7 Estimated GFR/1.73 m2 >= 60.00 Glucose 271 H Calcium 8.2 L Phosphorus 4.1 Magnesium 2.0 Ferritin 342 H Total Bilirubin 0.7 Conjugated Bilirubin 0.2 AST 57 H ALT 54 Alkaline Phosphatase 71 C-Reactive Protein 10.05 H Total Protein 6.5 Albumin 1.9 L 25-OH Vitamin D Total 31.0 10/30/21 06:15 WBC RBC Hgb Hct MCV MCH MCHC RDW Plt Count MPV Immature Gran % Neutrophils % Lymphocytes % Monocytes % Eosinophils % Basophils % Nucleated RBC % Absolute Neutrophils Absolute Lymphocytes Absolute Monocytes Absolute Eosinophils Absolute Basophils PT 11.3 H INR 1.1 D-Dimer 7429 H Sodium Potassium Chloride Carbon Dioxide Anion Gap BUN Creatinine Estimated GFR/1.73 m2 Glucose Calcium Phosphorus Magnesium Ferritin Total Bilirubin Conjugated Bilirubin AST ALT Alkaline Phosphatase C-Reactive Protein Total Protein Albumin 25-OH Vitamin D Total Review of Systems All systems reviewed & are unremarkable except as noted in HPI and below Time spent with patient Time spent in Critical Care: 40 Time spent in Critical care included: Coordination of care, Chart review, Documenting critically ill care, Time at immediate bedside and Discussing critically ill care with other medical staff
--- NOTE | 2021-10-30 13:10 | NUR.NOTE ---
patient's Anthony called and I updated him on the patient's status. We discussed that the patient is very sick and still in a very critical phase of improving or deteriorating. He states he understands. He expressed much gratitude about the care provided and his interactions with the staff. We discussed the patient's spacey mental status and withdrawn affect and he states this is not her pre-covid personality but that she had become like this prior to coming in after getting the COVID. He would have to tell her step by step to eat or perform simple chores. He states that he also is experiencing brain fog and having memory lapses but not as pronounced as his . Him and his daughter in law are both positive but vaccinated and are quarantining at home. they are checking their oxygen status frequently and are staying 98%. plans to call back by 1830 for an update. Nursing Note:
--- NOTE | 2021-10-30 13:15 | DI.RAD_ITS ---
Exam(s) XR PORTABLE CHEST AP POST LINE EXAM: XR PORTABLE CHEST AP POST LINE CLINICAL HISTORY: Post PICC line. TECHNIQUE: 2D digital imaging was performed. COMPARISON: CT CT CHEST PE CTA from 10/27/2021 FINDINGS: Heart size is upper normal. The mediastinum is not widened. Extensive bilateral pulmonary infiltrates are noted, relatively symmetrical. No large pleural effusi ons evident. Distal tip of the right PICC line is difficult to assess exact location. Recommend oblique film. IMPRESSION: Extensive bilateral infiltrates. Suspicious for Covid-19 ammonia.Right PICC line distal tip requires oblique films to determine exact location. DATA REPOSITORY: RADIATION DOSE DELIVERED: All CT scans at this facility use at least one of these dose optimization techniques: automated exposure control; mA and/or kV adjustment per patient size (includes targeted e xams where dose is matched to clinical indication); or iterative reconstruction.
--- NOTE | 2021-10-30 13:45 | DI.RAD_ITS ---
Exam(s) XR PORTABLE CHEST AP POST LINE EXAM: XR PORTABLE CHEST AP POST LINE CLINICAL HISTORY: post picc line insertion. TECHNIQUE: 2D digital imaging was performed. COMPARISON: CR XR PORTABLE CHEST AP POST LINE from 10/30/2021 FINDINGS: Heart size is upper normal. The mediastinum is not widened. Extensive bilateral infiltrates are again noted. The distal tip of the PICC line is in the right atr ium, as demonstrated on this oblique view.. IMPRESSION: DATA REPOSITORY: RADIATION DOSE DELIVERED: All CT scans at this facility use at least one of these dose optimization techniques: automated exposure control; mA and/or kV adjustment per patient size (includes targeted e xams where dose is matched to clinical indication); or iterative reconstruction.
--- NOTE | 2021-10-30 16:30 | DI.RAD_ITS ---
Exam(s) XR PORTABLE CHEST AP POST LINE EXAM: XR PORTABLE CHEST AP POST LINE CLINICAL HISTORY: Moved PICC placement TECHNIQUE: COMPARISON: CR XR PORTABLE CHEST AP POST LINE from 10/30/2021 CR XR PORTABLE CHEST AP POST LINE from 10/30/2021 CR XR PORTABLE CHEST AP POST LINE from 10/30/2021 FINDINGS: Portable upright chest 1705 hours. PICC line noted on the right, the tip is not ideally visualized b ut probably lies near junction of SVC and right atrium. Note is again made of bilateral patchy and d ense intrapulmonary infiltrates. IMPRESSION: RADIATION DOSE DELIVERED: Total DLP
--- NOTE | 2021-10-30 17:31 | DI.VRAD_ITS ---
Addendum created by Deisy Carbajal MD on 10/30/2021 6:59:47 PM EST: An additional coned-down, small [id number] image has been sent for clarity. This additional image demonstrates the tip of the PICC in the mid to upper right atrium. Initial report created on 10/30/2021 5:31:17 PM EST: PROCEDURE INFORMATION: Exam: XR Chest Exam date and time: 10/30/2021 4:31 PM Age: 51 years old Clinical indication: Moved picc placement TECHNIQUE: Imaging protocol: XR of the chest. Views: 1 view. COMPARISON: CR XR PORTABLE CHEST AP POST LINE 10/30/2021 2:21 PM FINDINGS: Limitations: The study is limited secondary to body habitus, large field of view and pulmonary opacities obscuring view of the PICC. Tubes, catheters and devices: A PICC is noted extending from the right arm and may be terminating at the superior vena cava or mid right atrium based on the image provided, as the tip is not well evaluated due to central opacification and large field of view. Lungs: There is redemonstration of patchy central consolidative and linear opacities, similar to prior examination. Pleural spaces: No large pleural effusion. No pneumothorax. Heart/Mediastinum: No cardiomegaly. Bones/joints: Unremarkable. IMPRESSION: 1. Right-sided PICC noted, however difficult to evaluate the tip due to large [id number], body habitus and multiple opacities in this region. Recommend repeat evaluation with a small [id number] over the heart, to better assess this region. 2. Similar appearance of central patchy and linear pulmonary opacities. Dictated and Authenticated by: Deisy Carbajal MD. Ordering:CHRISTINA Alfred MD
--- NOTE | 2021-10-30 17:59 | NUR.NOTE ---
Multiple conversations and CXR with Desire Lerma DNP and Radiology on line placement. Line was in the atrium and I pulled it back 2 cm. Latest report shows possible superior vena cava with clearer imaging needed. I spoke with Desire Lerma and radiology techs again and radiology states they will speak to the radiologist but another CXR is not warranted until further discussion with the radiologist. Desire Lerma gave approval to use the line now and states to follow-up with the radiologist for any needed repeat imaging once the radiology techs have talked with the radiologist. Nursing Note:
[2021-10-30] MEDS: Enoxaparin 40 MG/0.4 ML SYR SC (18:58)
[2021-10-30] MEDS: Atorvastatin 40 MG TAB PO (18:58)
[2021-10-30] MEDS: Normal Saline 500 ML 20 ML IV (19:29)
[2021-10-30] MEDS: Insulin Glargine 300 UNITS/3 ML PEN 30 UNITS SC (20:30)
[2021-10-30] MEDS: cefTRIAXone 2 GM/50 ML BAG IVPB (20:31)
[2021-10-30] MEDS: Melatonin 3 MG TAB PO (20:31)
[2021-10-30 23:23] LABS: Legionella Ag Detection Urine Negative (Negative)
[2021-10-31] VITALS (58 sets, daily range): BP systolic 110–147; BP diastolic 51–74; PULSE 46–104; RESP 0–38; TEMP 30–36.7; O2SAT 86–97
[2021-10-31] MEDS: DOXYCYCLINE 100 MG in Normal Saline 100 ML IVPB ×2 (02:54→15:51)
[2021-10-31 05:55] LABS: Abs Immature Grans 0.34 10^3/uL (0.0-0.06); Absolute Basophil Count 0.03 10^3/uL (0.0-0.2); Absolute Eosinophil Count 0.02 10^3/uL (0.0-0.7); Absolute Lymphocyte Count 1.04 10^3/uL (1.2-3.4); Absolute Monocyte Count 0.68 10^3/uL (0.1-0.8); Absolute Neutrophil Count 7.68 10^3/uL (1.2-6.7); Basophils % 0.3; Eosinophils % 0.2; HCT 36.4 % (36.0-46.0); HGB 11.5 g/dL (11.2-15.7); Immature Grans % 3.5; Lymphocytes % 10.6; MCH 27.8 pg (27.0-33.0); MCHC 31.6 % (32.0-36.0); MCV 87.9 fL (80-95); MPV 9.5 fL (8.0-11.0); Monocytes % 6.9; Neutrophils % 78.5; Nucleated RBC 0 %; Platelet Count 226 10^3/uL (130-400); RBC 4.14 10^6/uL (3.93-5.22); RDW 12.9 % (11.7-14.6); RDW-SD 41.8 fL; WBC 9.79 10^3/uL (4.4-10.8)
[2021-10-31 06:15] LABS: ALT 44 U/L (14-59); AST 41 U/L (15-37); Alkaline Phosphatase 69 U/L (46-116); Anion Gap 8.9 mmol/L (3-11); BUN 19 mg/dL (7-18); Bilirubin, Direct 0.2 mg/dL (0.0-0.2); Bilirubin, Total 0.4 mg/dL (0.2-1.0); C-Reactive Protein 6.04 mg/dL (0.0-0.3); CO2 28.1 mmol/L (21.0-32.0); CREATININE 0.7 mg/dL (0.55-1.02); Calcium 8.3 mg/dL (8.5-10.1); Chloride 104 mmol/L (98-107); Glucose 208 mg/dL (74-106); Potassium 3.9 mmol/L (3.5-5.1); Sodium 141 mmol/L (136-145); Total Protein 6.5 g/dL (6.4-8.2)
[2021-10-31 06:37] LABS: Ferritin 320 ng/mL (8-252)
--- NOTE | 2021-10-31 06:43 | NUR.NOTE ---
Nursing Note: Shift Totals: (approximate) OOB: 15-25 min IS Peak: 500ml + Proned: 1 hr (self proned) CPAP: 5 hrs Max Activity Level: self proning and side to side repositioning 3/4 to stomach , once stood and pivot to use the BSC. Equipment: CPAP: rest - 12PEEP, 50%, SpO2-93% HFNC: Rest - 60L, 60%, SpO2-96% HFNC: Prone - 60L, 65%,SpO2-95% HFNC: OOB - 60L, 93%, SpO2 dropped to 86%, added placement of NRB at 15L/min, sats fluctuated between 90-92%, pt experienced SOB+dizziness.
[2021-10-31 07:00] LABS: INR 1.2 (0.9-1.1); Prothrombin Time 11.6 sec (9.3-11.0)
[2021-10-31 07:04] LABS: Procalcitonin 0.2 ng/mL
[2021-10-31 07:19] LABS: D-Dimer > 7500 ng/mlFEU (<500)
[2021-10-31] MEDS: Dexamethasone 10 MG/ML VIAL 6 MG IVP (07:30)
[2021-10-31] MEDS: Ascorbic Acid 500 MG TAB 1000 MG PO ×2 (07:31→20:08)
[2021-10-31] MEDS: Cholecalciferol (Vitamin D3) 1,000 UNIT TAB 2000 UNITS PO (07:31)
[2021-10-31] MEDS: Zinc Sulfate 220 MG TAB PO (07:31)
[2021-10-31] MEDS: Famotidine 20 MG TAB PO ×2 (07:32→20:08)
[2021-10-31] MEDS: Benzonatate 200 MG CAP PO ×3 (07:32→20:08)
[2021-10-31] MEDS: Ipratropium/Albuterol 4 GM 120 PUFF INH IH ×4 (08:08→20:27)
--- NOTE | 2021-10-31 08:09 | CMPROGNOTE_ITS ---
- If Service Date Differs Date of service: 10/31/21 Time of Service: 14:09 Care Management Progress Note S/O: Shira remains at ICU level of care, on Covid precautions, with high oxygen requirements per MD. CM will continue to follow. A: 51 year old female admitted to [facility] on 10/27/21 with Acute hypoxic respiratory failure, Covid 19. P: Shira continues to have high supplemental oxygen requirements, and is being treated and monitored in the ICU. Oxygen will be weaned as tolerated. She may require home supplemental O2 upon discharge, coordinated by RT. Once she is medically cleared, she will return home. No anticipated services at this time. She will follow up with her PCP and discharge plan of care. CM will continue to follow.
--- NOTE | 2021-10-31 08:23 | PGE_ITS ---
Date of Service Date of service: 10/31/21 Time of Service: 12:41 Assessment and Plan Assessment and plan (1) Acute respiratory failure with hypoxia: Status: Acute Assessment and plan: Multifactorial, due to COVID-19 as well as likely superimposed bacterial process. Looks a little bit better today. Continue to encourage sitting up/proning/IS/acapella. Alternating between humidified heated high flow NC and CPAP. The patient must be on CPAP at night/whenever she is asleep. Continue remdesivir, dexamethasone, baricitinib, empiric abx, vitamin C/D, zinc, atorvastatin. Will repeat lasix today. D-dimer did go up, but as she is starting to clinically improve and venous dopplers were negative, we will not repeat a CTA today. Keep in ICU. (2) COVID-19: Status: Acute Assessment and plan: Continue tx as above. Predicted mortality rate is between 31 and 34.5% on this admission. Keep in ICU. (3) DKA (diabetic ketoacidosis): Status: Resolved Assessment and plan: Increase basal insulin again. Continue scheduled prandial and resistant corrective scale. Consider addition of NPH to cover for the steroid-induced hyperglycemia. (4) Newly diagnosed diabetes: Status: Acute Assessment and plan: A1C 12.9. As above (5) Metabolic acidosis: Status: Resolved Assessment and plan: As above (6) Dehydration: Status: Resolved Assessment and plan: Slightly fluid overloaded today - receiving 1 dose of lasix, as above (7) Obesity (BMI 30-39.9): Assessment and plan: Needs outpatient follow up for lifestyle modifications TSH wnl. Does have evidence of hirsutism on my exam and could potentially have PCOS. (8) DVT prophylaxis: Status: Acute Assessment and plan: SC enoxaparin (9) Discharge planning issues: Status: Acute Assessment and plan: Full code Keep in ICU. Total Critical Care Time 30 minutes Subjective Subjective Interval history since last seen: Ms Humphries states that she is feeling a little better. She continues to report a cough, which is productive, but she cannot tell me what the color of the sputum is. She has been working with IS and vibra pep. Denies dizziness, chest pain, nausea. Wore CPAP for 5 hrs last night. 50% FiO2 pressure of 12. FiO2 60% 60 L when in bed. 90% with NRB on 15 L over high flow NC. UOP 750 cc in 12 hrs. Afebrile. SB. SBP 100-120s. Poor appetite. HS BG 248. More motivated to eat this am. Exam Narrative Exam Narrative: General: Pleasant obese female, sitting up at the side of the bed on humidified heated high flow nasal canula + nonrebreather, not appearing to be in acute distress, coughing; appears more engaged, A&Ox3 HEENT: EOMI, MMM Heart: RRR, no m/r/g Lungs: Rales B lung bases, and this is more pronounced today Abdomen: soft, nontender, nondistended Extremities: trace edema BLE's Objective Last Vital Signs Temp 36.4 C L 10/31/21 05:50 Pulse 50 L 10/31/21 05:50 Resp 22 10/31/21 05:50 BP 116/57 L 10/31/21 05:50 Pulse Ox 93 10/31/21 05:50 Laboratory Results - last 24 hr 10/30/21 10/31/21 10/31/21 14:20 05:40 05:40 WBC RBC Hgb Hct MCV MCH MCHC RDW Plt Count MPV Immature Gran % Neutrophils % Lymphocytes % Monocytes % Eosinophils % Basophils % Nucleated RBC % Absolute Neutrophils Absolute Lymphocytes Absolute Monocytes Absolute Eosinophils Absolute Basophils PT INR D-Dimer Sodium 141 Potassium 3.9 Chloride 104 Carbon Dioxide 28.1 Anion Gap 8.9 BUN 19 H Creatinine 0.7 Estimated GFR/1.73 m2 >= 60.00 Glucose 208 H Calcium 8.3 L Magnesium 2.0 Ferritin 320 H Total Bilirubin 0.4 Conjugated Bilirubin 0.2 AST 41 H ALT 44 Alkaline Phosphatase 69 C-Reactive Protein 6.04 H Total Protein 6.5 Albumin 2.0 L Procalcitonin 0.2 Urine Legionella Ag Negative 10/31/21 10/31/21 05:40 06:00 WBC 9.79 RBC 4.14 Hgb 11.5 Hct 36.4 MCV 87.9 MCH 27.8 MCHC 31.6 L RDW 12.9 Plt Count 226 MPV 9.5 Immature Gran % 3.5 Neutrophils % 78.5 Lymphocytes % 10.6 Monocytes % 6.9 Eosinophils % 0.2 Basophils % 0.3 Nucleated RBC % 0 Absolute Neutrophils 7.68 H Absolute Lymphocytes 1.04 L Absolute Monocytes 0.68 Absolute Eosinophils 0.02 Absolute Basophils 0.03 PT 11.6 H INR 1.2 H D-Dimer > 7500 H Sodium Potassium Chloride Carbon Dioxide Anion Gap BUN Creatinine Estimated GFR/1.73 m2 Glucose Calcium Magnesium Ferritin Total Bilirubin Conjugated Bilirubin AST ALT Alkaline Phosphatase C-Reactive Protein Total Protein Albumin Procalcitonin Urine Legionella Ag
--- NOTE | 2021-10-31 08:25 | W.PULMCC ---
General Date of Service Date of service: 10/31/21 Time of Service: 07:45 Reason for Admission to ICU: COVID-19 Hypoxic respiratory failure Assessment and Plan Assessment and plan (1) DKA (diabetic ketoacidosis): Status: Resolved (2) Acute respiratory failure with hypoxia: Status: Acute (3) COVID-19: Status: Acute (4) Obesity (BMI 30-39.9): Assessment and plan: This is a 51 yo woman admitted with severe COVID pneumonia. She is cooperative with CPAP therapy and HFNC during the day. This should be continued to facilitate ambulation and eating throughout the day. Her inflammatory markers were elevated and so is on barcitinib. Her D-dimer did increase and so Doppler studies were done of the lower extremities and were negative. She was also found to be in mild DKA that was treated appropriately without an insulin drip. Her glucose is much better controlled, albeit with alot of insulin. She should work on getting out of bed to a chair if safe. Recommendations Pulmonary: Hypoxic respiratory failure - CPAP at night, HFNC during the day - wean FiO2 as able - Acapella and IS - OOB to chair if safe - even to negative fluid balance daily Cardiac: No acute concerns Renal: No acute concerns I&O: Intake & Output 10/28/21 10/29/21 10/30/21 10/31/21 23:59 23:59 23:59 23:59 Intake Total 712.533 / 122.796 0220.5 / 2592.5 1374.5 / 1374.5 493 / 493 Output Total 1550 / 1550 1750 / 1750 1300 / 1300 750 / 750 Balance -837.467 / -837.467 842.5 / 842.5 74.5 / 74.5 -257 / -257 Weight 99.1 kg 94.4 kg 92.3 kg Daily Fluid Goal:: Negative fluid balance GI Nutrition: PO diet ok - promote intake Date of Last Bowel Movement: 10/31/21 Infectious Disease: COVID-19 - agree with barcitinib, remdesivir and Decadron - continue with ceftriaxone and doxycycline given possible bacterial infection as well - urine antigens for strep pneumo and legionella ordered - sputum culture ordered - if able to produce sputum Hematologic: No acute concerns Neurologic: No acute concerns Endocrine: DKA, resolved - on Lantus 30bid as well as prandial insulin - glucose still elevated - goal glucose 140-180 - will leave insulin regimen dosing to primary service Lines: PICC Prophylaxis: Lovenox and famotidine Code Status: Resuscitation Status Full Code Subjective Critical and life-threatening events over the past 24 hours: Brit is doing well today. She slept ok. Wore the CPAP for approximately 4-5 hours overnight. She was reportedly pulling it off while asleep. This morning she is on HFNC 65%/60L and saturating well. She feels as though he breathing is not labored. She does not have a cough. Her appetite is not great, yesterday she only ate 25% of dinner and no other meals. She says she is able to taste her food but she is weak. Exam Const General: no acute distress Nutritional Appearance: obese HENMT Head: normocephalic Ears: external ears normal and no periauricular adenopathy General nose exam: nasal mucous membranes and turbinates normal Face and sinus: sinuses nontender Mouth: oropharynx normal and moist mucous membranes Teeth and gingiva: dentition normal Eyes General: appearance normal, both eyes and all related structures Pupils: PERRL Neck Neck: normal visual inspection and no lymphadenopathy Chest Chest: normal inspection of the chest Resp Effort & Inspection: normal respiratory effort Auscultation: clear to auscultation bilaterally, no rales, no rhonchi and no wheezes Cardio Rate: regular rate Rhythm: regular rhythm Heart Sounds: S1 normal, S2 normal and no murmurs Pulses: radial pulses present bilaterally GI Inspection: normal to inspection Palpation: soft Skin General skin exam: no rashes or lesions noted Neuro General: patient alert, patient awake and patient oriented x3 Extrem General: no clubbing, cyanosis or edema Psych Mental Status: mental status grossly normal Affect: normal affect Attitude: cooperative Most Recent VS/Results Last Vital Signs Temp 36.4 C L 10/31/21 05:50 Pulse 50 L 10/31/21 05:50 Resp 22 10/31/21 05:50 BP 116/57 L 10/31/21 05:50 Pulse Ox 93 10/31/21 05:50 Laboratory Results - last 24 hr 10/30/21 10/31/21 10/31/21 14:20 05:40 05:40 WBC RBC Hgb Hct MCV MCH MCHC RDW Plt Count MPV Immature Gran % Neutrophils % Lymphocytes % Monocytes % Eosinophils % Basophils % Nucleated RBC % Absolute Neutrophils Absolute Lymphocytes Absolute Monocytes Absolute Eosinophils Absolute Basophils PT INR D-Dimer Sodium 141 Potassium 3.9 Chloride 104 Carbon Dioxide 28.1 Anion Gap 8.9 BUN 19 H Creatinine 0.7 Estimated GFR/1.73 m2 >= 60.00 Glucose 208 H Calcium 8.3 L Magnesium 2.0 Ferritin 320 H Total Bilirubin 0.4 Conjugated Bilirubin 0.2 AST 41 H ALT 44 Alkaline Phosphatase 69 C-Reactive Protein 6.04 H Total Protein 6.5 Albumin 2.0 L Procalcitonin 0.2 Urine Legionella Ag Negative 10/31/21 10/31/21 05:40 06:00 WBC 9.79 RBC 4.14 Hgb 11.5 Hct 36.4 MCV 87.9 MCH 27.8 MCHC 31.6 L RDW 12.9 Plt Count 226 MPV 9.5 Immature Gran % 3.5 Neutrophils % 78.5 Lymphocytes % 10.6 Monocytes % 6.9 Eosinophils % 0.2 Basophils % 0.3 Nucleated RBC % 0 Absolute Neutrophils 7.68 H Absolute Lymphocytes 1.04 L Absolute Monocytes 0.68 Absolute Eosinophils 0.02 Absolute Basophils 0.03 PT 11.6 H INR 1.2 H D-Dimer > 7500 H Sodium Potassium Chloride Carbon Dioxide Anion Gap BUN Creatinine Estimated GFR/1.73 m2 Glucose Calcium Magnesium Ferritin Total Bilirubin Conjugated Bilirubin AST ALT Alkaline Phosphatase C-Reactive Protein Total Protein Albumin Procalcitonin Urine Legionella Ag Review of Systems All systems reviewed & are unremarkable except as noted in HPI and below Time spent with patient Time spent in Critical Care: 35 Time spent in Critical care included: Coordination of care, Chart review, Documenting critically ill care, Time at immediate bedside and Discussing critically ill care with other medical staff
[2021-10-31] MEDS: Insulin Aspart 300 UNITS/3 ML PEN SC ×6 (08:37→22:14)
[2021-10-31] MEDS: Insulin Glargine 300 UNITS/3 ML PEN 30 UNITS SC (08:38)
--- NOTE | 2021-10-31 10:39 | NUR.NOTE ---
Nursing Note: At Approx 08:30 patient's sats began to drop. Patient was sitting in high fowlers position in bed at rest with NO ACTIVITY on HI [place] nc 60 lpm, 60% FI02. 08:45 saturations had dropped to 82%. 08:45:Patient placed back on CPAP settings of pressure of 10, FI02 of 50% and repositioned high onto L side. By 09:10 saturations roman to 91%. Patient remained on CPAP until approx 09:55. At that time CPAP removed, patient placed again on HI Flow NC. 10:00 Hi omaira settings 60 lpm, 90% FI02, plus non rebreather placed on top of nasal cannula @100%. Patient mobilized to sitting position at edge of bed, feet dangling. Patient sat at edge of bed for 15 minutes, SP02 88% for majority of duration. 10:20 Patient back to bed, positioned high on R side, Non-rebreather removed. Fi02 reduced to 60% with 60 lpm via HI Flow nasal cannula.
--- NOTE | 2021-10-31 13:27 | NUR.NOTE ---
This contract writer was in room with patient and patient was telling me about how her daughter is in the and here visiting from [place]. I was able to get her daughters phone number and call to tell her that she could come and visit through the door to see her mom before she had to return to [place]. But unfortunately, believes she has covid as well and is getting tested today. I did inform the daughter (Judy) that any time she wanted to facetime her mom that we would be more than happy to go in the room and help set that up. Nursing Note:
--- NOTE | 2021-10-31 13:59 | NUR.NOTE ---
Nursing Note: Approx 12:00 Patient on Hi flow NC. I increased fi02 to 90% and added non-rebreather at 100% on top for activity- patient getting OOB and transferring to chair. Patient maintained sp02 at 90% throughout transfer. 12:15: Once settled into chair non rebreather was removed and patient stayed on hi flow at 90% Fi02 for one hour while eating lunch and sitting up in chair. Patient able to maintain sats at 88-91% throughout. 13:00: Non rebreather placed back on at 100% for transfer back to bed. Transfer went smoothly, patient maintaining sats 89%-90% during transfer. 13:10: Non rebreather removed, patient positioned onto Right side and Hi flow fI02 turned back down to 60% at 60 lpm for resting in bed. Patient tolerated all activity remarkably well. COntinues to maintain saturations at 89-90% on hi flow nc at 60 lpm and FI02 of 60%..
[2021-10-31] MEDS: guaiFENesin 600 MG TABCR PO ×2 (14:12→20:08)
[2021-10-31] MEDS: Normal Saline Flush 10 ML SYR IVP (14:12)
[2021-10-31] MEDS: Furosemide 20 MG/2 ML VIAL IVP (14:12)
--- NOTE | 2021-10-31 15:00 | NUR.NOTE ---
Nursing Note: Shift Totals PRONE: 30 minutes CPAP: 1 hour HFNC: 7 hours Activity: OOB to Chair x 1: 1 hour Dangle Feet at bedside x 1: 30 minutes 02 Requirements: HFNC: while actively repositioning - 60 lpm, FI02 90% plus nonrebreather @ 100% sitting up in chair - 60 lpm, FI02 90% while proning - 60 lpm, FI02 80% at rest in bed sitting or lying on sides - 60 lpm, FI02 60% CPAP: At rest in bed - Pressure of 10, FI02 50% Equipment: IS : 500 max, used x4, 5 repititions each Acapella: used x2, stimulated non productive cough
[2021-10-31] MEDS: Enoxaparin 40 MG/0.4 ML SYR SC (18:11)
[2021-10-31] MEDS: cefTRIAXone 2 GM/50 ML BAG IVPB (20:07)
[2021-10-31] MEDS: Melatonin 3 MG TAB PO (20:08)
[2021-10-31] MEDS: Atorvastatin 40 MG TAB PO (20:08)
[2021-10-31] MEDS: Insulin Glargine 300 UNITS/3 ML PEN 35 UNITS SC (20:27)
[2021-11-01] VITALS (64 sets, daily range): BP systolic 90–133; BP diastolic 58–79; PULSE 43–93; RESP 2–37; TEMP -0.5–36.3; O2SAT 75–96
[2021-11-01] MEDS: Normal Saline Flush 10 ML SYR IVP ×6 (03:37→21:44)
[2021-11-01] MEDS: DOXYCYCLINE 100 MG in Normal Saline 100 ML IVPB ×2 (03:37→15:09)
[2021-11-01] MEDS: Normal Saline 500 ML 100 ML IV (04:39)
[2021-11-01 07:27] LABS: HCT 37.4 % (36.0-46.0); HGB 12.1 g/dL (11.2-15.7); MCHC 32.4 % (32.0-36.0); MCV 86.6 fL (80-95); MPV 9.7 fL (8.0-11.0); Nucleated RBC 0 %; Platelet Count 261 10^3/uL (130-400); RBC 4.32 10^6/uL (3.93-5.22); RDW 12.5 % (11.7-14.6); WBC 11.57 10^3/uL (4.4-10.8)
[2021-11-01 07:35] LABS: INR 1.2 (0.9-1.1); Prothrombin Time 11.8 sec (9.3-11.0)
[2021-11-01 07:42] LABS: ALT 51 U/L (14-59); AST 46 U/L (15-37); Albumin 2.1 g/dL (3.4-5.0); Alkaline Phosphatase 76 U/L (46-116); Anion Gap 10.1 mmol/L (3-11); BUN 21 mg/dL (7-18); Bilirubin, Direct 0.2 mg/dL (0.0-0.2); Bilirubin, Total 0.5 mg/dL (0.2-1.0); C-Reactive Protein 3.34 mg/dL (0.0-0.3); CO2 27.9 mmol/L (21.0-32.0); CREATININE 0.8 mg/dL (0.55-1.02); Calcium 8.3 mg/dL (8.5-10.1); Chloride 105 mmol/L (98-107); Glucose 78 mg/dL (74-106); Magnesium 1.7 mg/dL (1.8-2.4); Sodium 143 mmol/L (136-145); Total Protein 6.6 g/dL (6.4-8.2)
[2021-11-01 07:45] LABS: Potassium 2.9 mmol/L (3.5-5.1)
[2021-11-01 07:47] LABS: Absolute Lymphocyte Count 0.93 10^3/uL (1.2-3.4); Absolute Monocyte Count 0.81 10^3/uL (0.1-0.8); Absolute Neutrophil Count 9.72 10^3/uL (1.2-6.7); Atypical Lymphocytes % 1; Diff Comment Manual Differential; Metamyelocytes % 1; RBC Morphology Normal
[2021-11-01 08:01] LABS: D-Dimer > 7500 ng/mlFEU (<500)
[2021-11-01 08:08] LABS: Ferritin 285 ng/mL (8-252)
--- NOTE | 2021-11-01 08:29 | W.PM.PROGNOT ---
Date of Service Date of service: 11/01/21 Time of Service: 11:21 Assessment and Plan Assessment and plan (1) Acute respiratory failure with hypoxia: Status: Acute Assessment and plan: Multifactorial, due to COVID-19 as well as likely superimposed bacterial process. Slightly better today. Continue to encourage sitting up/proning/IS/acapella. Alternating between humidified heated high flow NC and CPAP. The patient must be on CPAP at night/whenever she is asleep. Continue remdesivir, dexamethasone, baricitinib, empiric abx, vitamin C/D, zinc, atorvastatin. Will give one more dose of lasix (20 mg PO). D-dimer did go up, but as clinically improving and venous dopplers were negative, we will not repeat CTA. Discussed with Dr Somers. Keep in ICU. (2) COVID-19: Status: Acute Assessment and plan: Continue tx as above. Predicted mortality rate is between 31 and 34.5% on this admission. Keep in ICU. (3) DKA (diabetic ketoacidosis): Status: Resolved Assessment and plan: Decrease basal insulin again as FBG was 78. Continue scheduled prandial and resistant corrective scale. (4) Newly diagnosed diabetes: Status: Acute Assessment and plan: A1C 12.9. As above DM educator ordered. I have started to discuss with the patient that she will be discharged on insulin tx initially but might be able to get off of insulin in the future. (5) Metabolic acidosis: Status: Resolved Assessment and plan: As above (6) Dehydration: Status: Resolved Assessment and plan: Slightly fluid overloaded today - PO lasix is being given. (7) Obesity (BMI 30-39.9): Assessment and plan: Needs outpatient follow up for lifestyle modifications TSH wnl. Does have evidence of hirsutism on my exam and could potentially have PCOS. (8) DVT prophylaxis: Status: Acute Assessment and plan: SC enoxaparin (9) Discharge planning issues: Status: Acute Assessment and plan: Full code Keep in ICU. Total Critical Care Time 30 minutes Subjective Subjective Interval history since last seen: Feels a little better today. States breathing is overall better. Energy level is better, but felt that her CPAP wore her out last night. Wore CPAP x 90 minutes and then x 4 hrs overnight. Reports claustrophobia. Ativan now ordered. On CPAP, saturating 89-92%, up to 94%, 50% FiO2, 12 of PEEP. On high flow, 60 L 61% FiO2, saturating 90-94%. On high flow right now, laying on her left side. Drops down to the 70s on this when going down to the commode; recovers to the 83-84% on the commode on same settings without NRB. Recovered to 89-92%. Alternated sides last night. PICC line not working overnight, working now post cathflow. The patient's daughter and both tested positive. Daughter is in the , visiting for the holidays from [place]. Exam Narrative Exam Narrative: General: Pleasant obese female, looks better today, laying on her L side in bed on humidified heated high flow NC, no dyspnea/tachypnea/cyanosis. HEENT: EOMI, MMM Heart: RRR, no m/r/g Lungs: Rales L lung base, better than yesterday Abdomen: soft, nontender, nondistended Extremities: trace edema BLE's Objective Last Vital Signs Temp 35.3 C L 10/31/21 22:19 Pulse 45 L 11/01/21 04:02 Resp 32 H 11/01/21 07:00 BP 123/61 11/01/21 04:02 Pulse Ox 94 11/01/21 07:00 Laboratory Results - last 24 hr 11/01/21 11/01/21 11/01/21 07:15 07:15 07:15 WBC 11.57 H RBC 4.32 Hgb 12.1 Hct 37.4 MCV 86.6 MCH 28.0 MCHC 32.4 RDW 12.5 Plt Count 261 MPV 9.7 Immature Gran % 0.0 Neutrophils % 84.0 Lymphocytes % 7.0 Atypical Lymphs % 1 Monocytes % 7.0 Eosinophils % 0.0 Basophils % 0.0 Metamyelocytes % 1 Nucleated RBC % 0 Absolute Neutrophils 9.72 H Absolute Lymphocytes 0.93 L Absolute Monocytes 0.81 H Absolute Eosinophils 0.00 Absolute Basophils 0.00 RBC Morphology Normal PT 11.8 H INR 1.2 H D-Dimer > 7500 H Sodium 143 Potassium 2.9 L D Chloride 105 Carbon Dioxide 27.9 Anion Gap 10.1 BUN 21 H Creatinine 0.8 Estimated GFR/1.73 m2 >= 60.00 Glucose 78 D Calcium 8.3 L Magnesium 1.7 L Ferritin 285 H Total Bilirubin 0.5 Conjugated Bilirubin 0.2 AST 46 H ALT 51 Alkaline Phosphatase 76 C-Reactive Protein 3.34 H Total Protein 6.6 Albumin 2.1 L
--- NOTE | 2021-11-01 08:54 | PDOC.CMPRO ---
- If Service Date Differs Date of service: 11/01/21 Time of Service: 08:54 Care Management Progress Note S/O: Shira remains ICU level of care, being treated for Covid pneumonia. She is receiving Baricitinib, Remdesivir and Dexamethazone. CM unable to meet with her due to Covid isolation precautions. Per provider, Shira is showing some mild improvement today and her oxygen needs have decreased a little. She remains on HFNC alternating with CPAP/BIPAP. Her oxygen saturation levels remain in the 90-94% range while on BIPAP or HFNC, however with activity, she drops down into the 70's or 80's. A: 51 year old female admitted to [facility] on 10/27/21 with Acute hypoxic respiratory failure, Covid 19. P: Shira continues to have high supplemental oxygen requirements, and is being treated and monitored in the ICU. Oxygen will be weaned as tolerated. She may require home supplemental O2 upon discharge, coordinated by RT. Once she is medically cleared, she will return home. No anticipated services at this time. She will follow up with her PCP and discharge plan of care. CM will continue to follow.
[2021-11-01] MEDS: Ipratropium/Albuterol 4 GM 120 PUFF INH IH ×4 (09:10→22:00)
[2021-11-01] MEDS: Alteplase 2 MG VIAL (09:30)
[2021-11-01] MEDS: Water,Injection,Sterile 10 ML VIAL (09:31)
[2021-11-01] MEDS: Ascorbic Acid 500 MG TAB 1000 MG PO ×2 (09:34→19:31)
[2021-11-01] MEDS: Famotidine 20 MG TAB PO ×2 (09:34→19:29)
[2021-11-01] MEDS: guaiFENesin 600 MG TABCR PO ×2 (09:34→19:30)
[2021-11-01] MEDS: Benzonatate 200 MG CAP PO ×3 (09:34→19:29)
[2021-11-01] MEDS: Zinc Sulfate 220 MG TAB PO (09:34)
[2021-11-01] MEDS: Cholecalciferol (Vitamin D3) 1,000 UNIT TAB 2000 UNITS PO (09:34)
[2021-11-01] MEDS: Potassium Chloride 20 MEQ TABCR 40 MEQ PO ×2 (09:35→19:30)
[2021-11-01] MEDS: Insulin Glargine 300 UNITS/3 ML PEN 30 UNITS SC ×2 (09:37→22:23)
[2021-11-01] MEDS: Dexamethasone 10 MG/ML VIAL 6 MG IVP (11:07)
[2021-11-01] MEDS: MAGNESIUM SULFATE 2 GM/50 ML BAG IVPB (11:07)
[2021-11-01] MEDS: POTASSIUM CHLORIDE 20 MEQ/100 ML BAG 50 MEQ IVPB ×2 (11:09→13:29)
[2021-11-01] MEDS: Furosemide 20 MG TAB PO (12:33)
[2021-11-01 14:55] LABS: Streptococcus Pneumoniae Ag, U Negative (Negative)
--- NOTE | 2021-11-01 15:02 | RESPIRATORY ---
Pt placed on CPAP approx 14:00. RT encouraged pt to stay on CPAP until dinner arrives. Pt should be on CPAP or proning on HFNC throughout night. She can alternate as tolerated. The importance of these 2 therapies was explained to pt and she passively agreed to try. Pt stated she didn't know if she could tolerate CPAP all night. RT informed pt to let nurse know if she was experiencing anxiety with mask.
[2021-11-01] MEDS: Insulin Aspart 300 UNITS/3 ML PEN SC ×3 (17:00→22:24)
[2021-11-01] MEDS: Enoxaparin 40 MG/0.4 ML SYR SC (19:28)
[2021-11-01] MEDS: Atorvastatin 40 MG TAB PO (19:30)
[2021-11-01] MEDS: cefTRIAXone 2 GM/50 ML BAG IVPB (19:56)
[2021-11-01] MEDS: Melatonin 3 MG TAB PO (21:44)
[2021-11-02] VITALS (50 sets, daily range): BP systolic 99–128; BP diastolic 50–71; PULSE 46–89; RESP 15–43; TEMP 31–36.9; O2SAT 73–98
--- NOTE | 2021-11-02 | DI.RAD_ITS ---
Exam(s) XR PORTABLE CHEST AP EXAM: XR PORTABLE CHEST AP CLINICAL HISTORY: worsening hypoxic respiratory failure, COVID-19. TECHNIQUE: 2D digital imaging was performed. COMPARISON: CR XR PORTABLE CHEST AP POST LINE from 10/30/2021 FINDINGS: Persistent bilateral infiltrates are again noted, without significant improvement.. There are no obv ious pleural effusions. Chest leads in place. Distal tip of the PICC line is at the SVC RA junction IMPRESSION: No radiographic improvement in the bilateral infiltrates. DATA REPOSITORY: RADIATION DOSE DELIVERED: All CT scans at this facility use at least one of these dose optimization techniques: automated exposure control; mA and/or kV adjustment per patient size (includes targeted e xams where dose is matched to clinical indication); or iterative reconstruction.
[2021-11-02] MEDS: DOXYCYCLINE 100 MG in Normal Saline 100 ML IVPB ×2 (04:51→17:29)
[2021-11-02 06:54] LABS: Abs Immature Grans 0.34 10^3/uL (0.0-0.06); Absolute Basophil Count 0.02 10^3/uL (0.0-0.2); Absolute Eosinophil Count 0.06 10^3/uL (0.0-0.7); Absolute Lymphocyte Count 1.15 10^3/uL (1.2-3.4); Absolute Neutrophil Count 6.63 10^3/uL (1.2-6.7); Basophils % 0.2; Eosinophils % 0.7; HCT 37.4 % (36.0-46.0); Immature Grans % 3.8; Lymphocytes % 12.8; MCH 27.9 pg (27.0-33.0); MCHC 32.1 % (32.0-36.0); MPV 10.3 fL (8.0-11.0); Monocytes % 8.9; Neutrophils % 73.6; Nucleated RBC 0 %; Platelet Count 272 10^3/uL (130-400); RDW 12.7 % (11.7-14.6); RDW-SD 40.5 fL
[2021-11-02 07:14] LABS: INR 1.2 (0.9-1.1); Prothrombin Time 11.7 sec (9.3-11.0)
[2021-11-02 07:25] LABS: ALT 45 U/L (14-59); AST 36 U/L (15-37); Albumin 2.1 g/dL (3.4-5.0); Alkaline Phosphatase 74 U/L (46-116); Anion Gap 5.9 mmol/L (3-11); BUN 18 mg/dL (7-18); Bilirubin, Direct 0.2 mg/dL (0.0-0.2); Bilirubin, Total 0.5 mg/dL (0.2-1.0); C-Reactive Protein 3.19 mg/dL (0.0-0.3); CO2 28.1 mmol/L (21.0-32.0); CREATININE 0.7 mg/dL (0.55-1.02); Calcium 8.5 mg/dL (8.5-10.1); Chloride 104 mmol/L (98-107); Glucose 127 mg/dL (74-106); Magnesium 1.9 mg/dL (1.8-2.4); PHOSPHORUS 4.1 mg/dL (2.6-4.7); Potassium 4.2 mmol/L (3.5-5.1); Sodium 138 mmol/L (136-145); Total Protein 6.7 g/dL (6.4-8.2)
[2021-11-02 07:32] LABS: D-Dimer > 7500 ng/mlFEU (<500)
[2021-11-02 08:00] LABS: Procalcitonin < 0.1 ng/mL
[2021-11-02 08:09] LABS: Ferritin 257 ng/mL (8-252)
--- NOTE | 2021-11-02 08:17 | W.PM.PROGNOT ---
Date of Service Date of service: 11/02/21 Time of Service: 14:32 Assessment and Plan Assessment and plan (1) Acute respiratory failure with hypoxia: Status: Acute Assessment and plan: Multifactorial, due to COVID-19 as well as likely superimposed bacterial process. There probably is also a fluid overload component. I also cannot rule out a PE and she is not stable enough to go downstairs at this time for a CTA. Worse today. Going back on CPAP - encourage as much CPAP today as possible. Continue to encourage sitting up/proning/IS/acapella. The patient must be on CPAP at night/whenever she is asleep. Continue remdesivir, dexamethasone, baricitinib, empiric abx, vitamin C/D, zinc, atorvastatin. Increase dexamethasone dose to 10 mg. IV lasix. Increase lovenox to therapeutic dose. Keep in ICU. I have discussed with the patient that if she gets worse, she might require intubation and possible transfer to a tertiary care facility, but that we are not there yet. (2) COVID-19: Status: Acute Assessment and plan: Continue tx as above. Predicted mortality rate is between 31 and 34.5% on this admission. Keep in ICU. (3) DKA (diabetic ketoacidosis): Status: Resolved Assessment and plan: Decrease basal insulin. Continue scheduled prandial insuiln. Decrease SSI to moderate. (4) Newly diagnosed diabetes: Status: Acute Assessment and plan: A1C 12.9. As above DM educator ordered. I have started to discuss with the patient that she will be discharged on insulin tx initially but might be able to get off of insulin in the future. (5) Metabolic acidosis: Status: Resolved Assessment and plan: As above (6) Dehydration: Status: Resolved Assessment and plan: Actually diuresing at this time. Monitor kidney function. (7) Obesity (BMI 30-39.9): Assessment and plan: Needs outpatient follow up for lifestyle modifications TSH wnl. Does have evidence of hirsutism on my exam and could potentially have PCOS. (8) DVT prophylaxis: Status: Acute Assessment and plan: SC enoxaparin (9) Discharge planning issues: Status: Acute Assessment and plan: Full code Keep in ICU. Total Critical Care Time 45 minutes Subjective Subjective Interval history since last seen: Shira states she feels ok today. She does not feel short of breath (while on Humidified Heated high flow FiO2 90%). Denies dizziness, chest pain, shortness of breath, nausea. Did not wear CPAP overnight. Unclear why. We discussed how this may have led to worsening oxygen requirements today and that she will be going on CPAP now to see if we can re-recruit her lungs. This morning, while on High Flow 60 L 65% + NRB 15L, she was noted to be desaturating to the 70s while sitting at the side of the bed preparing for breakfast. Proned for 2 hrs yesterday afternoon. Desaturated on the abdomen; does better on the side. UOP - 275 cc 11 p-7 a. BG 103 this am. HR 40s overnight while asleep. Exam Narrative Exam Narrative: General: Pleasant obese female, A&Ox3, laying on her right side, no dyspnea/tachypnea/cyanosis, being transitioned to CPAP. HEENT: EOMI, MMM Heart: RRR, no m/r/g Lungs: Very little aeration on auscultation B Abdomen: soft, nontender, nondistended Extremities: trace edema BLE's Objective Last Vital Signs Temp 35.6 C L 11/02/21 04:29 Pulse 53 L 11/01/21 22:01 Resp 31 H 11/02/21 04:00 BP 120/70 11/01/21 22:01 Pulse Ox 92 11/02/21 04:00 Laboratory Results - last 24 hr 10/30/21 11/02/21 11/02/21 14:20 06:15 06:15 WBC RBC Hgb Hct MCV MCH MCHC RDW Plt Count MPV Immature Gran % Neutrophils % Lymphocytes % Monocytes % Eosinophils % Basophils % Nucleated RBC % Absolute Neutrophils Absolute Lymphocytes Absolute Monocytes Absolute Eosinophils Absolute Basophils PT INR D-Dimer Sodium 138 Potassium 4.2 D Chloride 104 Carbon Dioxide 28.1 Anion Gap 5.9 BUN 18 Creatinine 0.7 Estimated GFR/1.73 m2 >= 60.00 Glucose 127 H Calcium 8.5 Phosphorus 4.1 Magnesium 1.9 Ferritin 257 H Total Bilirubin 0.5 Conjugated Bilirubin 0.2 AST 36 ALT 45 Alkaline Phosphatase 74 C-Reactive Protein 3.19 H Total Protein 6.7 Albumin 2.1 L Procalcitonin < 0.1 Ur Strep pneumoniae Ag Negative 11/02/21 11/02/21 06:15 06:15 WBC 9.00 RBC 4.30 Hgb 12.0 Hct 37.4 MCV 87.0 MCH 27.9 MCHC 32.1 RDW 12.7 Plt Count 272 MPV 10.3 Immature Gran % 3.8 Neutrophils % 73.6 Lymphocytes % 12.8 Monocytes % 8.9 Eosinophils % 0.7 Basophils % 0.2 Nucleated RBC % 0 Absolute Neutrophils 6.63 Absolute Lymphocytes 1.15 L Absolute Monocytes 0.80 Absolute Eosinophils 0.06 Absolute Basophils 0.02 PT 11.7 H INR 1.2 H D-Dimer > 7500 H Sodium Potassium Chloride Carbon Dioxide Anion Gap BUN Creatinine Estimated GFR/1.73 m2 Glucose Calcium Phosphorus Magnesium Ferritin Total Bilirubin Conjugated Bilirubin AST ALT Alkaline Phosphatase C-Reactive Protein Total Protein Albumin Procalcitonin Ur Strep pneumoniae Ag Objective Narrative Objective Narrative: CXR: No radiographic improvement in the bilateral infiltrates.
[2021-11-02] MEDS: Ipratropium/Albuterol 4 GM 120 PUFF INH IH ×4 (08:30→20:46)
[2021-11-02] MEDS: Cholecalciferol (Vitamin D3) 1,000 UNIT TAB 2000 UNITS PO (08:57)
[2021-11-02] MEDS: Dexamethasone 10 MG/ML VIAL 6 MG IVP (08:57)
[2021-11-02] MEDS: Ascorbic Acid 500 MG TAB 1000 MG PO ×2 (08:58→20:45)
[2021-11-02] MEDS: guaiFENesin 600 MG TABCR PO ×2 (08:58→20:45)
[2021-11-02] MEDS: Insulin Glargine 300 UNITS/3 ML PEN 25 UNITS SC ×2 (08:58→20:46)
[2021-11-02] MEDS: Famotidine 20 MG TAB PO ×2 (08:58→20:45)
[2021-11-02] MEDS: Zinc Sulfate 220 MG TAB PO (08:58)
[2021-11-02] MEDS: Benzonatate 200 MG CAP PO ×3 (08:58→20:45)
[2021-11-02] MEDS: Potassium Chloride 20 MEQ TABCR 40 MEQ PO (08:59)
[2021-11-02] MEDS: Normal Saline Flush 10 ML SYR IVP ×4 (08:59→20:45)
[2021-11-02] MEDS: LORazepam 2 MG/ML VIAL 0.5 MG IVP (09:55)
--- NOTE | 2021-11-02 10:26 | PDOC.CMPRO ---
- If Service Date Differs Date of service: 11/02/21 Time of Service: 10:33 Care Management Progress Note S/O: Shira remains ICU level of care, being treated for Covid pneumonia. She is receiving Baricitinib, Remdesivir and Dexamethazone. CM unable to meet with her due to Covid isolation precautions. Per report, Shira did not wear her CPAP overnight, and was requiring higher levels of O2 today. Per RN, she is not doing as well today as yesterday, but she continues to make progress. Her has been calling and receiving updates from her RN daily. CM will continue to follow. A: 51 year old female admitted to [facility] on 10/27/21 with Acute hypoxic respiratory failure, Covid 19. P: Shira continues to have high supplemental oxygen requirements, and is being treated and monitored in the ICU. Oxygen will be weaned as tolerated. She may require home supplemental O2 upon discharge, coordinated by RT. Once she is medically cleared, she will return home. No anticipated services at this time. She will follow up with her PCP and discharge plan of care. CM will continue to follow.
[2021-11-02] MEDS: Albuterol HFA 8 GM 60 PUFF INH IH (12:30)
[2021-11-02] MEDS: Insulin Aspart 300 UNITS/3 ML PEN SC ×5 (12:48→22:15)
[2021-11-02] MEDS: Furosemide 40 MG/4 ML VIAL IVP (13:30)
[2021-11-02] MEDS: Enoxaparin 100 MG/ML SYR 90 MG SC (13:30)
[2021-11-02] MEDS: Dexamethasone 4 MG/ML VIAL IVP (13:30)
--- NOTE | 2021-11-02 19:49 | NUR.NOTE ---
Addendum entered by Yue Lin 11/02/21 19:58: Pt was also given IVP lasix in the afternoon and fot off approximately 2L of urine over the 12 hours. Pt's lovenox was increased to PE dosing with increased respiratory effort and patient not stable to go to CTA this AM. Original Note: 11/02 AM: Patient had been off CPAP overnight and respiratory status declined sharply. The patient went from requiring 60% on HFNC up in chair and 50-55% on CPAP to not being able to get above mid 80s on 100% 0fi02 CPAP this AM and needing 15L+ over HFNC at 93% while OOB for breakfast at 70s-80s% sp02. The patient was heavily educated on the importance of CPAP and proning and the patient was very compliant. She needed anxiety support with ativan this AM as she was very stressed over feeling she could not catch her breath and wearing the mask. Patient reports the ativan helped and 1mg PO was ordered instead of 0.5mg IVP (pt had needed two 0.5mg doses). Patient stayed on her CPAP except for meals or short breaks and stayed heavily on her side or proning. Patient tolerated well and is greatly improved this PM. Magy: Patient got OOB easily on 93% fi02 HFNC and only desatted for a few min to mid 80s. Patient was then 94% sp02 while eating. After being up approximately 45 min, she got back into bed and was 99% sp02 right after lying on her R side with no desatting with movement. I titrated down her HFNC to 65%/60L and she was still 94-96% while resting in bed. Handoff given and night nurse to continue titration down and have patient wear CPAP all night. Nursing Note:
[2021-11-02] MEDS: LORazepam 1 MG TAB PO (20:44)
[2021-11-02] MEDS: Atorvastatin 40 MG TAB PO (20:44)
[2021-11-02] MEDS: cefTRIAXone 2 GM/50 ML BAG IVPB (20:45)
[2021-11-02] MEDS: Melatonin 3 MG TAB PO (20:48)
[2021-11-03] VITALS (58 sets, daily range): BP systolic 92–119; BP diastolic 45–67; PULSE 42–117; RESP 12–37; TEMP 31–36.8; O2SAT 75–99
[2021-11-03] MEDS: Enoxaparin 100 MG/ML SYR 90 MG SC ×2 (01:17→14:30)
[2021-11-03] MEDS: DOXYCYCLINE 100 MG in Normal Saline 100 ML IVPB ×2 (04:09→16:41)
[2021-11-03 06:50] LABS: Abs Immature Grans 0.27 10^3/uL (0.0-0.06); Absolute Basophil Count 0.03 10^3/uL (0.0-0.2); Absolute Eosinophil Count 0.04 10^3/uL (0.0-0.7); Absolute Lymphocyte Count 1.07 10^3/uL (1.2-3.4); Absolute Monocyte Count 0.93 10^3/uL (0.1-0.8); Absolute Neutrophil Count 7.67 10^3/uL (1.2-6.7); Basophils % 0.3; Eosinophils % 0.4; HCT 38.8 % (36.0-46.0); HGB 12.6 g/dL (11.2-15.7); Immature Grans % 2.7; Lymphocytes % 10.7; MCH 28.3 pg (27.0-33.0); MCHC 32.5 % (32.0-36.0); MCV 87.2 fL (80-95); MPV 10.1 fL (8.0-11.0); Monocytes % 9.3; Neutrophils % 76.6; Nucleated RBC 0 %; Platelet Count 316 10^3/uL (130-400); RBC 4.45 10^6/uL (3.93-5.22); RDW 12.6 % (11.7-14.6); RDW-SD 40.4 fL; WBC 10.01 10^3/uL (4.4-10.8)
[2021-11-03 07:13] LABS: ALT 44 U/L (14-59); AST 25 U/L (15-37); Albumin 2.2 g/dL (3.4-5.0); Alkaline Phosphatase 74 U/L (46-116); Anion Gap 5.5 mmol/L (3-11); BUN 21 mg/dL (7-18); Bilirubin, Direct 0.2 mg/dL (0.0-0.2); Bilirubin, Total 0.5 mg/dL (0.2-1.0); C-Reactive Protein 1.96 mg/dL (0.0-0.3); CO2 28.5 mmol/L (21.0-32.0); CREATININE 0.7 mg/dL (0.55-1.02); Calcium 8.6 mg/dL (8.5-10.1); Chloride 103 mmol/L (98-107); Glucose 214 mg/dL (74-106); Magnesium 2.1 mg/dL (1.8-2.4); PHOSPHORUS 4.1 mg/dL (2.6-4.7); Potassium 4.4 mmol/L (3.5-5.1); Sodium 137 mmol/L (136-145); Total Protein 6.7 g/dL (6.4-8.2)
[2021-11-03] MEDS: Cholecalciferol (Vitamin D3) 1,000 UNIT TAB 2000 UNITS PO (07:39)
[2021-11-03] MEDS: Benzonatate 200 MG CAP PO ×3 (07:39→20:08)
[2021-11-03] MEDS: Zinc Sulfate 220 MG TAB PO (07:39)
[2021-11-03] MEDS: Ascorbic Acid 500 MG TAB 1000 MG PO ×2 (07:39→20:13)
[2021-11-03] MEDS: guaiFENesin 600 MG TABCR PO ×2 (07:40→20:08)
[2021-11-03 07:41] LABS: Ferritin 260 ng/mL (8-252)
[2021-11-03] MEDS: Insulin Aspart 300 UNITS/3 ML PEN SC ×7 (07:41→21:20)
[2021-11-03] MEDS: Ipratropium/Albuterol 4 GM 120 PUFF INH IH ×4 (08:29→20:11)
[2021-11-03] MEDS: Famotidine 20 MG TAB PO ×2 (08:30→20:08)
[2021-11-03] MEDS: Dexamethasone 10 MG/ML VIAL IVP (08:30)
[2021-11-03] MEDS: Insulin Glargine 300 UNITS/3 ML PEN 25 UNITS SC ×2 (09:00→21:20)
[2021-11-03] MEDS: LORazepam 1 MG TAB PO ×2 (09:05→20:08)
[2021-11-03] MEDS: Normal Saline 500 ML 10 ML IV (09:24)
[2021-11-03] MEDS: Normal Saline Flush 10 ML SYR IVP ×3 (09:29→20:09)
[2021-11-03 11:03] LABS: INR 1.1 (0.9-1.1); Prothrombin Time 11.3 sec (9.3-11.0)
[2021-11-03 11:27] LABS: D-Dimer 6793 ng/mlFEU (<500)
--- NOTE | 2021-11-03 13:24 | PGE_ITS ---
Date of Service Date of service: 11/03/21 Time of Service: 13:24 Assessment and Plan Assessment and plan (1) Acute respiratory failure with hypoxia: Status: Acute Assessment and plan: Secondary to COVID-19 pneumonia along with possible superimposed bacterial pneumonia. Procalcitonin certainly was elevated. On October 27 at 1.7 and since being placed on Rocephin and doxycycline her procalcitonin level has declined to less than 0.1 yesterday. Today will complete 7-day course of Rocephin and doxycycline. I will recheck a procalcitonin level tomorrow if it remains less than 0.1 we will consider discontinuation of antibiotics. Continue supportive care with continuous use of CPAP except when she is eating at which point if she can tolerate being on high flow nasal cannula we will continue high flow nasal cannula along with high FiO2. RT is going to try to fit the patient with a better fitting mask to see if we can increase the CPAP pressures. Patient understands that her condition is precarious and if she gets any worse she will have to be intubated and transferred to tertiary care center. Continue high-dose Decadron 10 mg IV daily along with Remdesivir and b aricitinib. Encourage use of incentive spirometer as well as proning while in bed and sitting up in a chair as much as possible. will add low dose daily lasix, potassium supplementation while on lasix, monitor her renal function but would prefer that she were on the dry side in light of her COVID pneumonia (2) COVID-19: Status: Acute Assessment and plan: as above (3) Newly diagnosed diabetes: Status: Acute Assessment and plan: A1C 12.9. As above DM educator ordered. I have started to discuss with the patient that she will be discharged on insulin tx initially but might be able to get off of insulin in the future. (4) Obesity (BMI 30-39.9): Assessment and plan: Needs outpatient follow up for lifestyle modif ications TSH wnl. Does have evidence of hirsutism on my exam and could potentially have PCOS. (5) DVT prophylaxis: Status: Acute Assessment and plan: SC enoxaparin (6) Discharge planning issues: Status: Acute Assessment and plan: Full code Keep in ICU. Total Critical Care Time 45 minutes Subjective Subjective Interval history since last seen: Patient has had increased oxygen requirements. Requiring CPAP at 12 cm with 100% FiO2 to maintain her oxygen saturation while transferring out of bed. However when I went to see her at lunchtime she was sitting up on a high flow nasal cannula at 60 L/min with an FiO2 of 90%. She is saturating at 92 to 94%. Patient has been trying to perform proning procedures when she is in bed. She does not feel more dyspneic today than yesterday. Cough is minimally productive of white mucus. She has had no fevers. She is now on day #7 of ceftriaxone and doxycycline. Procalcitonin level yesterday finally normalized to less than 0.1. Patient remains on Remdesivir 100 mg daily. These are ordered through November 05, 2021 this would be a total of 9 doses. She remains on high-dose Decadron 10 mg IV daily. I talked to her about her current condition and that if things get any worse she may need to be intubated and placed on mechanical ventilation and transferred to a tertiary care center. Patient understands this and says that she would like to do everything do prevent this. However if it comes down to life and situation she is agreeable to being intubated. Exam Narrative Exam Narrative: Obese white female sitting up in a chair finishing her lunch does not appear to be in any respiratory distress. She is alert and oriented person place time circumstance Lungs with diffusely diminished breath sounds with basilar rales no rhonchi or wheezing Heart is regular rate and rhythm Abdomen is obese soft and nontender and nondistended Lower extremities trace of edema in her feet and ankles. Objective Last Vital Signs Temp 36.0 C L 11/03/21 08:15 Pulse 108 H 11/03/21 08:03 Resp 22 11/03/21 10:00 BP 119/46 L 11/03/21 08:03 Pulse Ox 97 11/03/21 10:00 Laboratory Results - last 24 hr 11/03/21 11/03/21 11/03/21 06:34 06:34 06:34 WBC 10.01 RBC 4.45 Hgb 12.6 Hct 38.8 MCV 87.2 MCH 28.3 MCHC 32.5 RDW 12.6 Plt Count 316 MPV 10.1 Immature Gran % 2.7 Neutrophils % 76.6 Lymphocytes % 10.7 Monocytes % 9.3 Eosinophils % 0.4 Basophils % 0.3 Nucleated RBC % 0 Absolute Neutrophils 7.67 H Absolute Lymphocytes 1.07 L Absolute Monocytes 0.93 H Absolute Eosinophils 0.04 Absolute Basophils 0.03 PT Cancelled INR Cancelled D-Dimer Cancelled Sodium 137 Potassium 4.4 Chloride 103 Carbon Dioxide 28.5 Anion Gap 5.5 BUN 21 H Creatinine 0.7 Estimated GFR/1.73 m2 >= 60.00 Glucose 214 H D Calcium 8.6 Phosphorus 4.1 Magnesium 2.1 Ferritin 260 H Total Bilirubin 0.5 Conjugated Bilirubin 0.2 AST 25 ALT 44 Alkaline Phosphatase 74 C-Reactive Protein 1.96 H Total Protein 6.7 Albumin 2.2 L 11/03/21 10:45 WBC RBC Hgb Hct MCV MCH MCHC RDW Plt Count MPV Immature Gran % Neutrophils % Lymphocytes % Monocytes % Eosinophils % Basophils % Nucleated RBC % Absolute Neutrophils Absolute Lymphocytes Absolute Monocytes Absolute Eosinophils Absolute Basophils PT 11.3 H INR 1.1 D-Dimer 6793 H Sodium Potassium Chloride Carbon Dioxide Anion Gap BUN Creatinine Estimated GFR/1.73 m2 Glucose Calcium Phosphorus Magnesium Ferritin Total Bilirubin Conjugated Bilirubin AST ALT Alkaline Phosphatase C-Reactive Protein Total Protein Albumin Reviewed Pertinent PMH: Yes
[2021-11-03] MEDS: Potassium Chloride 20 MEQ TABCR PO ×2 (14:29→20:08)
[2021-11-03] MEDS: Furosemide 20 MG/2 ML VIAL IVP (14:32)
[2021-11-03] MEDS: Atorvastatin 40 MG TAB PO (20:08)
[2021-11-03] MEDS: cefTRIAXone 2 GM/50 ML BAG IVPB (20:10)
[2021-11-03] MEDS: Psyllium PKT 1 EACH PO (20:11)
[2021-11-03] MEDS: Melatonin 3 MG TAB PO (20:17)
[2021-11-04] VITALS (119 sets, daily range): BP systolic 83–111; BP diastolic 41–62; PULSE 42–100; RESP 12–38; TEMP 31–37.1; O2SAT 79–99
--- NOTE | 2021-11-04 | DI.RAD_ITS ---
Exam(s) XR PORTABLE CHEST AP EXAM: XR PORTABLE CHEST AP CLINICAL HISTORY: covid pneumonia; refractory hypoxemia TECHNIQUE: COMPARISON: CR XR PORTABLE CHEST AP from 11/02/2021 FINDINGS: Portable chest at 1150 hours. In comparison with yesterday's examination, note is again made of bila teral multi focal pulmonary infiltrates most prominent in the lung bases. There is been little inter terry change in appearance comparison with yesterday's examination. Upper lung zones appear relatively clear. No gross pleural effusion. IMPRESSION: Little if any interval change in multifocal infiltrates in comparison with yesterday's examination. RADIATION DOSE DELIVERED: Total DLP
[2021-11-04] MEDS: LORazepam 1 MG TAB PO ×3 (01:46→22:23)
[2021-11-04] MEDS: Enoxaparin 100 MG/ML SYR 90 MG SC ×2 (01:46→13:56)
[2021-11-04] MEDS: DOXYCYCLINE 100 MG in Normal Saline 100 ML IVPB ×2 (03:23→17:39)
[2021-11-04 07:22] LABS: Abs Immature Grans 0.23 10^3/uL (0.0-0.06); Absolute Basophil Count 0.02 10^3/uL (0.0-0.2); Absolute Eosinophil Count 0.07 10^3/uL (0.0-0.7); Absolute Lymphocyte Count 1.34 10^3/uL (1.2-3.4); Absolute Monocyte Count 0.93 10^3/uL (0.1-0.8); Basophils % 0.2; Eosinophils % 0.7; HCT 38.9 % (36.0-46.0); HGB 12.4 g/dL (11.2-15.7); Immature Grans % 2.3; Lymphocytes % 13.2; MCH 27.7 pg (27.0-33.0); MCHC 31.9 % (32.0-36.0); MPV 10.6 fL (8.0-11.0); Monocytes % 9.1; Neutrophils % 74.5; Nucleated RBC 0 %; Platelet Count 379 10^3/uL (130-400); RBC 4.47 10^6/uL (3.93-5.22); RDW 12.7 % (11.7-14.6); RDW-SD 40.2 fL; WBC 10.19 10^3/uL (4.4-10.8)
[2021-11-04 07:48] LABS: ALT 42 U/L (14-59); AST 22 U/L (15-37); Albumin 2.3 g/dL (3.4-5.0); Alkaline Phosphatase 69 U/L (46-116); Anion Gap 5.7 mmol/L (3-11); BUN 24 mg/dL (7-18); Bilirubin, Total 0.4 mg/dL (0.2-1.0); CO2 29.3 mmol/L (21.0-32.0); CREATININE 0.7 mg/dL (0.55-1.02); Calcium 8.8 mg/dL (8.5-10.1); Chloride 103 mmol/L (98-107); Glucose 145 mg/dL (74-106); LDH 352 U/L (81-234); Potassium 4.2 mmol/L (3.5-5.1); Sodium 138 mmol/L (136-145); Total Protein 6.6 g/dL (6.4-8.2)
[2021-11-04 08:02] LABS: D-Dimer 4079 ng/mlFEU (<500)
[2021-11-04 08:07] LABS: Procalcitonin < 0.1 ng/mL
[2021-11-04 08:14] LABS: Ferritin 270 ng/mL (8-252)
[2021-11-04] MEDS: Dexamethasone 10 MG/ML VIAL IVP (08:24)
[2021-11-04] MEDS: Furosemide 20 MG/2 ML VIAL IVP (08:24)
[2021-11-04] MEDS: Normal Saline Flush 10 ML SYR IVP ×3 (08:24→22:23)
[2021-11-04] MEDS: Ascorbic Acid 500 MG TAB 1000 MG PO ×2 (08:24→22:40)
[2021-11-04] MEDS: Potassium Chloride 20 MEQ TABCR PO ×3 (08:25→22:23)
[2021-11-04] MEDS: Benzonatate 200 MG CAP PO ×3 (08:25→22:23)
[2021-11-04] MEDS: Famotidine 20 MG TAB PO ×2 (08:25→22:23)
[2021-11-04] MEDS: Psyllium PKT 1 EACH PO ×2 (08:25→22:23)
[2021-11-04] MEDS: Cholecalciferol (Vitamin D3) 1,000 UNIT TAB 2000 UNITS PO (08:25)
[2021-11-04] MEDS: Zinc Sulfate 220 MG TAB PO (08:25)
[2021-11-04] MEDS: guaiFENesin 600 MG TABCR PO ×2 (08:25→22:23)
[2021-11-04] MEDS: Ipratropium/Albuterol 4 GM 120 PUFF INH IH ×4 (08:40→23:51)
[2021-11-04] MEDS: Albuterol HFA 8 GM 60 PUFF INH IH ×2 (08:40→13:59)
[2021-11-04] MEDS: Insulin Aspart 300 UNITS/3 ML PEN SC ×6 (09:49→22:41)
[2021-11-04] MEDS: Insulin NPH-Human 300 UNITS/3 ML PEN 50 UNIT SC (09:50)
--- NOTE | 2021-11-04 11:39 | PGE_ITS ---
Date of Service Date of service: 11/04/21 Time of Service: 11:39 Assessment and Plan Assessment and plan (1) Acute respiratory failure with hypoxia: Status: Acute Assessment and plan: Secondary to COVID-19 pneumonia plus/minus bacterial component. Patient completed a week of Rocephin and doxycycline. Patient's had 2 normal procalcitonin levels now over the last 48 hours and has remained afebrile and is not coughing up any purulent sputum. At this point we can discontinue parenteral antibiotics but continue treatment for COVID-19 with high-dose Decadron 10 mg IV daily along with baricitinib and Remdesivir. D #8 Remdesivir 100 mg daily, D #8 baricitinib 4 mg daily. Continue to encourage her to prone and to wear the CPAP mask at all times when she is not eating. I have asked nursing to increase her CPAP to 16 cm to improve alveolar recruitment and improve her gas exchange. I will check a chest x-ray to reevaluate her infiltrates. Other markers of inflammation are gradually improving. Ferritin is down to 270, D-dimer is declining down to 4000. We have still not ruled out the possibility of a pulmonary embolus as she has been too unstable to transfer to [facility]. Patient is currently on therapeutic level of Lovenox 90 mg subcu every 12 hours. Venous duplex scan last week was negative for DVT. Echocardiogram showed no evidence of right ventricular strain . (2) COVID-19: Status: Acute Assessment and plan: as above (3) Newly diagnosed diabetes: Status: Acute Assessment and plan: A1C 12.9. Patient presented in DKA was treated with insulin drip now currently on basal bolus insulin along with carb coverage. I changed her Lantus to once a day at bedtime and added NPH in the morning to coincide with her Decadron. I have increased her corrective scale to the insulin resistant level and increase her carb coverage to 2 units per 10 g of carbohydrates. Calculated NPH dosage should be 60 units daily with Decadron 10 mg IV however I started her at 50 units of NPH. Calculation is 0.5 units of NPH per 1 mg of prednisone. (4) Obesity (BMI 30-39.9): Assessment and plan: Needs outpatient follow up for lifestyle modifications TSH wnl. Does have evidence of hirsutism on my exam and could potentially have PCOS. (5) DVT prophylaxis: Status: Acute Assessment and plan: SC enoxaparin at therapeutic levels at 90 mg subcutaneously every 12 hours (6) Discharge planning issues: Status: Acute Assessment and plan: Full code Keep in ICU. Total Critical Care Time 30 minutes Subjective Subjective Interval history since last seen: Patient still requiring high flow nasal cannula at 60 L/min in between 90-100% FiO2 to maintain her oxygen saturation above 90% when she gets out of bed or sits up to eat. With CPAP 14 cm and an FiO2 of 80% she is able to maintain an SPO2 of 96%. Overall the patient feels better. She is remained afebrile and has no cough or sputum production and denies any chest pain. She does not feel dyspneic at rest. She has been practicing proning and when she is not in the prone position she is either sitting up or lying on her side. Exam Narrative Exam Narrative: Middle-aged obese white female lying in the left lateral decubitus position wearing her high flow nasal cannula which is set at 60 L/min and an FiO2 of 90%. Her SPO2 is 92%. She is alert and oriented x3. She is in no acute respiratory distress. She does not appear to be tachypneic. She is able to talk in complete sentences. Lungs diffusely diminished breath sounds but I can hear breath sounds all the way to the bases no rhonchi or rales. Heart is regular rate and rhythm Abdomen is obese soft nondistended nontender with active bowel sounds Lower extremities without calf tenderness or thigh tenderness or swelling. No peripheral cyanosis. Neurologically she is grossly intact no focal motor or sensory deficits no focal cranial nerve deficits. Objective Last Vital Signs Temp 37.1 C 11/04/21 04:41 Pulse 47 L 11/04/21 08:01 Resp 25 H 11/04/21 10:22 BP 101/57 L 11/04/21 08:01 Pulse Ox 95 11/04/21 10:42 Laboratory Results - last 24 hr 11/04/21 11/04/21 11/04/21 06:00 06:00 06:00 WBC 10.19 RBC 4.47 Hgb 12.4 Hct 38.9 MCV 87.0 MCH 27.7 MCHC 31.9 L RDW 12.7 Plt Count 379 MPV 10.6 Immature Gran % 2.3 Neutrophils % 74.5 Lymphocytes % 13.2 Monocytes % 9.1 Eosinophils % 0.7 Basophils % 0.2 Nucleated RBC % 0 Absolute Neutrophils 7.60 H Absolute Lymphocytes 1.34 Absolute Monocytes 0.93 H Absolute Eosinophils 0.07 Absolute Basophils 0.02 D-Dimer Sodium 138 Potassium 4.2 Chloride 103 Carbon Dioxide 29.3 Anion Gap 5.7 BUN 24 H Creatinine 0.7 Estimated GFR/1.73 m2 >= 60.00 Glucose 145 H Calcium 8.8 Ferritin 270 H Total Bilirubin 0.4 AST 22 ALT 42 Alkaline Phosphatase 69 Lactate Dehydrogenase 352 H Total Protein 6.6 Albumin 2.3 L Procalcitonin < 0.1 11/04/21 06:00 WBC RBC Hgb Hct MCV MCH MCHC RDW Plt Count MPV Immature Gran % Neutrophils % Lymphocytes % Monocytes % Eosinophils % Basophils % Nucleated RBC % Absolute Neutrophils Absolute Lymphocytes Absolute Monocytes Absolute Eosinophils Absolute Basophils D-Dimer 4079 H Sodium Potassium Chloride Carbon Dioxide Anion Gap BUN Creatinine Estimated GFR/1.73 m2 Glucose Calcium Ferritin Total Bilirubin AST ALT Alkaline Phosphatase Lactate Dehydrogenase Total Protein Albumin Procalcitonin
--- NOTE | 2021-11-04 12:21 | DI.VRAD_ITS ---
PROCEDURE INFORMATION: Exam: XR Chest Exam date and time: 11/04/2021 11:32 AM Age: 51 years old Clinical indication: Other: Covid pneumonia, refractory hypoxemia TECHNIQUE: Imaging protocol: XR of the chest. Views: 1 view. COMPARISON: CR XR PORTABLE CHEST AP 11/02/2021 11:14 AM FINDINGS: Lungs: Similar to slightly worsening lung opacities. Pleural spaces: No pneumothorax. No sizable pleural effusion. Heart/Mediastinum: Similar/stable cardiomediastinal silhouette. Bones/joints: No acute displaced fracture. IMPRESSION: Similar to slightly worsening bilateral lung opacities. Dictated and Authenticated by: Vicente Govea MD. Ordering:[facility] Karen Montenegro MD
[2021-11-04] MEDS: Normal Saline 500 ML 10 ML IV (13:58)
--- NOTE | 2021-11-04 15:45 | NUR.NOTE ---
11/04/21 7A-3P (all times are approximate) Proning 2hrs (7039-0452) OOB 2hrs (5602-7845, 8404-3401) HFNC 4 hours OOB: HFNC 60L, 100% +NRB Maxed flow greater than 15L HFNC Bed: 60L. 94% CPAP 16 PEEP, 75% Activity: OOB for meals, can tolerate about 1 hour up and fatigues. Patient's desats to mid 80s with HFNC and NRB on when getting OOB and takes 5-10 min to get back to 89-90% sp02. Pt had been able to tolerate 94% on HFNC and sats 90% when getting OOB 2 days ago in PM. Patient understands her 02 requirements have increased but is very motivated to do whatever care items needed to help the lungs heal. Pt MUST be on CPAP the majority of the day and night at this point. Nursing Note:
[2021-11-04] MEDS: Atorvastatin 40 MG TAB PO (22:22)
[2021-11-04] MEDS: Melatonin 3 MG TAB PO (22:23)
[2021-11-04] MEDS: cefTRIAXone 2 GM/50 ML BAG IVPB (22:24)
[2021-11-04] MEDS: Insulin Glargine 300 UNITS/3 ML PEN 30 UNITS SC (22:42)
[2021-11-05] VITALS (61 sets, daily range): BP systolic 82–111; BP diastolic 39–69; PULSE 55–112; RESP 13–35; TEMP 31–36.4; O2SAT 82–99
[2021-11-05] MEDS: Enoxaparin 100 MG/ML SYR 90 MG SC ×2 (00:48→14:13)
[2021-11-05] MEDS: Normal Saline Flush 10 ML SYR IVP ×3 (04:09→16:00)
[2021-11-05] MEDS: DOXYCYCLINE 100 MG in Normal Saline 100 ML IVPB ×2 (04:09→16:01)
--- NOTE | 2021-11-05 06:29 | NUR.NOTE ---
Nursing Note: CDiff specimen sent to lab rejected r/t not loose enough to be run through the machine.
--- NOTE | 2021-11-05 06:38 | NUR.NOTE ---
Nursing Note: 11/04/21 2300 - 11/05/21 0700 Pt spent the night turning side to side, not proning, but used CPAP throughout the night, starting at [address] remains in place at this time (0637). HFNC settings (8439-6006) were 60L and fio2 82% CPAP settings (0055-current) were PEEP 16 and FiO2 75%
[2021-11-05 07:23] LABS: Abs Immature Grans 0.21 10^3/uL (0.0-0.06); Absolute Basophil Count 0.01 10^3/uL (0.0-0.2); Absolute Eosinophil Count 0.06 10^3/uL (0.0-0.7); Absolute Lymphocyte Count 1.65 10^3/uL (1.2-3.4); Absolute Monocyte Count 1.21 10^3/uL (0.1-0.8); Basophils % 0.1; Eosinophils % 0.5; HCT 35.6 % (36.0-46.0); HGB 11.7 g/dL (11.2-15.7); Immature Grans % 1.7; Lymphocytes % 13.1; MCH 28.2 pg (27.0-33.0); MCHC 32.9 % (32.0-36.0); MCV 85.8 fL (80-95); MPV 10.5 fL (8.0-11.0); Monocytes % 9.6; Nucleated RBC 0 %; Platelet Count 448 10^3/uL (130-400); RBC 4.15 10^6/uL (3.93-5.22); RDW 12.8 % (11.7-14.6); RDW-SD 39.7 fL
[2021-11-05 07:25] LABS: Absolute Neutrophil Count 9.45 10^3/uL (1.2-6.7)
[2021-11-05 07:38] LABS: INR 1.2 (0.9-1.1); PTT Activated 29.8 sec (21.0-27.5)
[2021-11-05 07:55] LABS: ALT 45 U/L (14-59); AST 22 U/L (15-37); Albumin 2.3 g/dL (3.4-5.0); Alkaline Phosphatase 66 U/L (46-116); Anion Gap 8.1 mmol/L (3-11); BUN 25 mg/dL (7-18); Bilirubin, Total 0.4 mg/dL (0.2-1.0); CO2 27.9 mmol/L (21.0-32.0); CREATININE 0.7 mg/dL (0.55-1.02); Calcium 8.4 mg/dL (8.5-10.1); Chloride 105 mmol/L (98-107); Ferritin 267 ng/mL (8-252); Glucose 108 mg/dL (74-106); Potassium 3.9 mmol/L (3.5-5.1); Sodium 141 mmol/L (136-145); Total Protein 6.3 g/dL (6.4-8.2)
[2021-11-05 08:09] LABS: D-Dimer 2401 ng/mlFEU (<500)
[2021-11-05 08:21] LABS: C-Reactive Protein 0.71 mg/dL (0.0-0.3); Creatine Kinase 30 U/L (26-192)
[2021-11-05] MEDS: Dexamethasone 10 MG/ML VIAL IVP (09:31)
[2021-11-05] MEDS: Psyllium PKT 1 EACH PO (09:31)
[2021-11-05] MEDS: Furosemide 20 MG/2 ML VIAL IVP (09:31)
[2021-11-05] MEDS: Cholecalciferol (Vitamin D3) 1,000 UNIT TAB 2000 UNITS PO (09:32)
[2021-11-05] MEDS: Zinc Sulfate 220 MG TAB PO (09:32)
[2021-11-05] MEDS: Ascorbic Acid 500 MG TAB 1000 MG PO ×2 (09:32→20:18)
[2021-11-05] MEDS: Benzonatate 200 MG CAP PO ×3 (09:32→20:18)
[2021-11-05] MEDS: guaiFENesin 600 MG TABCR PO ×2 (09:33→20:18)
[2021-11-05] MEDS: Insulin Aspart 300 UNITS/3 ML PEN SC ×6 (09:33→20:30)
[2021-11-05] MEDS: Potassium Chloride 20 MEQ TABCR PO ×3 (09:33→20:18)
[2021-11-05] MEDS: Famotidine 20 MG TAB PO ×2 (09:33→20:18)
[2021-11-05] MEDS: Ipratropium/Albuterol 4 GM 120 PUFF INH IH ×4 (09:34→21:55)
[2021-11-05] MEDS: Albuterol HFA 8 GM 60 PUFF INH IH ×2 (09:34→14:16)
[2021-11-05] MEDS: Insulin NPH-Human 300 UNITS/3 ML PEN 50 UNIT SC (09:34)
--- NOTE | 2021-11-05 10:26 | PGE_ITS ---
Date of Service Date of service: 11/05/21 Time of Service: 10:26 Assessment and Plan Assessment and plan (1) Acute respiratory failure with hypoxia: Status: Acute Assessment and plan: Secondary to COVID-19 pneumonia plus/minus bacterial component. Patient completed a week of Rocephin and doxycycline. Patient's had 2 normal procalcitonin levels now over the last 48 hours and has remained afebrile and is not coughing up any purulent sputum. Because of the severity of her pneumonia and the fact that she did have elevated procalcitonin levels initially I have elected to continue the ceftriaxone and doxycycline for a full 10-day course. Today is day #10 of ceftriaxone 2 g daily along with doxycycline 100 mg IV every 12 hours. Continue Decadron 10 mg IV daily along with baricitinib and Remdesivir. D #9 Remdesivir 100 mg daily (today is her last dose, however I am going to continue the Remdesivir throughout the entire course of her baricitinib therapy., D #9 baricitinib 4 mg daily (total of 14 doses with an end date of 11/10/2020). Continue to encourage her to prone and to wear the CPAP mask at all times when she is not eating. Continue I-S and Acapella as tolerated. We will increase her Lasix from 20 mg IV daily to twice daily dosing as she has some evidence of trace edema in her hands and her feet. Goal is to keep her in a net negative fluid balance. (2) COVID-19: Status: Acute Assessment and plan: as above (3) Newly diagnosed diabetes: Status: Acute Assessment and plan: A1C 12.9. Patient presented in DKA was treated with insulin drip now currently on basal bolus insulin along with carb coverage. I changed her Lantus to once a day at bedtime and added NPH in the morning to coincide with her Decadron. I have increased her corrective scale to the insulin resistant level and increase her carb coverage to 2 units per 10 g of carbohydrates. Calculated NPH dosage should be 60 units daily with Decadron 10 mg IV however I started her at 50 units of NPH. Calculation is 0.5 units of NPH per 1 mg of prednisone. Fasting blood sugars seem to be well controlled therefore I will leave her Lantus dose the same 30 units nightly. However yesterday blood sugars were running in the high 200s bordering on 300 therefore I will increase her NPH to 60 units daily to be given with her morning dose of dexamethasone. (4) Obesity (BMI 30-39.9): Assessment and plan: Needs outpatient follow up for lifestyle modifications TSH wnl. Does have evidence of hirsutism on my exam and could potentially have PCOS. (5) DVT prophylaxis: Status: Acute Assessment and plan: SC enoxaparin at therapeutic levels at 90 mg subcutaneously every 12 hours (6) Discharge planning issues: Status: Acute Assessment and plan: Full code Keep in ICU. Total Critical Care Time 30 minutes Subjective Subjective Interval history since last seen: Patient did well overnight on CPAP 16 cm FiO2 75% however this morning she is only requiring an FiO2 of 50 to 55%. When she is off her CPAP she wears a high flow nasal cannula at 60 L/min with an FiO2 of 90%. She feels less short of breath and denies any chest pain or cough or sputum production. She remains afebrile. Review of her labs shows stable electrolytes and BUN and creatinine. Glucose 108 this morning. Her other inflammatory markers are decreasing. Ferritin is down to 267, transaminases have normalized. C-reactive protein is down to 0.71. D-dimer is down to 2400. Her lymphocytopenia has resolved. She does have a mild leukocytosis of 12,000 however she is on high- dose Decadron 10 mg daily. I told the patient and the patient's nurse that if she continues to improve on her oxygen saturation and does not desaturate with transfers out of bed we could probably discontinue her Harris catheter and she can start using a bedside commode to void. Exam Narrative Exam Narrative: Obese female wearing her CPAP mask lying on her right side with her head elevated 30 degrees. She appears to be comfortable no respiratory distress no accessory respiratory muscle use. Lungs with some faint bibasilar rales no rhonchi or wheezing. She has improved breath sounds at her bases compared to yesterday. Heart is regular rate and rhythm no murmur rub or gallop Abdomen is soft nondistended nontender with a few faint scattered bowel sounds Extremities with just a trace of pedal and pretibial edema as well as some hand edema. Neurologic exam grossly intact no focal deficits. Objective Last Vital Signs Temp 36.4 C L 11/05/21 04:30 Pulse 56 L 11/05/21 06:01 Resp 25 H 11/05/21 06:02 BP 97/61 L 11/05/21 06:01 Pulse Ox 96 11/05/21 06:02 Laboratory Results - last 24 hr 11/05/21 11/05/21 11/05/21 04:35 05:47 05:47 WBC 12.60 H RBC 4.15 Hgb 11.7 Hct 35.6 L MCV 85.8 MCH 28.2 MCHC 32.9 RDW 12.8 Plt Count 448 H MPV 10.5 Immature Gran % 1.7 Neutrophils % 75.0 Lymphocytes % 13.1 Monocytes % 9.6 Eosinophils % 0.5 Basophils % 0.1 Nucleated RBC % 0 Absolute Neutrophils 9.45 H Absolute Lymphocytes 1.65 Absolute Monocytes 1.21 H Absolute Eosinophils 0.06 Absolute Basophils 0.01 PT INR APTT D-Dimer Sodium 141 Potassium 3.9 Chloride 105 Carbon Dioxide 27.9 Anion Gap 8.1 BUN 25 H Creatinine 0.7 Estimated GFR/1.73 m2 >= 60.00 Glucose 108 H Calcium 8.4 L Ferritin 267 H Total Bilirubin 0.4 AST 22 ALT 45 Alkaline Phosphatase 66 Creatine Kinase 30 C-Reactive Protein 0.71 H Total Protein 6.3 L Albumin 2.3 L Stl C.difficile Tox PCR Cancelled 11/05/21 05:47 WBC RBC Hgb Hct MCV MCH MCHC RDW Plt Count MPV Immature Gran % Neutrophils % Lymphocytes % Monocytes % Eosinophils % Basophils % Nucleated RBC % Absolute Neutrophils Absolute Lymphocytes Absolute Monocytes Absolute Eosinophils Absolute Basophils PT 12.0 H INR 1.2 H APTT 29.8 H D-Dimer 2401 H Sodium Potassium Chloride Carbon Dioxide Anion Gap BUN Creatinine Estimated GFR/1.73 m2 Glucose Calcium Ferritin Total Bilirubin AST ALT Alkaline Phosphatase Creatine Kinase C-Reactive Protein Total Protein Albumin Stl C.difficile Tox PCR
[2021-11-05] MEDS: LORazepam 1 MG TAB PO (14:40)
[2021-11-05 15:39] LABS: Bilirubin Negative (Negative); Blood Large (Negative); Clarity Clear (Clear); Glucose 500 mg/dL (Negative); Ketones Negative (Negative); Leukocyte Esterase Negative (Negative); Nitrite Negative (Negative); Specific Gravity 1.025 (1.005-1.025); Urobilinogen 0.2 EU/dL (Up TO 0.2); pH 5.5 (5-8)
--- NOTE | 2021-11-05 15:43 | NUR.NOTE ---
11/05/21 7-3 (times are approximate) CPAP: till 0745, 4199-3006, 1445-current - PEEP 16, 70% (pt was at 55% and sp02 of 90-92 during 7658-8592 but then desatted more than AM getting OOB for lunch. HFNC 94%, 60L: For meals -Non-rebreather not needed for OOB at breakfast, used briefly for recover at lunch time. High Side: Pt on CPAP when in bed so did not prone this shift but stayed on side (tipped towards front in PM.) Pt felt much better than yesterday this AM. She had greatly improved air movement this AM and barely dipped to 90% so02 when getting up on just the HFNC this morning (yest hit 79% even with HFNC and NRB maxed out). After lying on R side on mask between breakfast and lunch with fi02 at 55% (spo2 90-92%), the patient desatted to 80s when getting up and did not recover as well). Patient has no underlying lung condition and feels a sat of even 88-90% Pt does better with 02 sat 95 or above. Pt's HR increased to 120 when OOB for lunch and BP is high 80s to low 90s systolic. Urinalysis sent and talking with Dr. Jones on decreasing lasix dosage as patient may be getting too dry. Nursing Note:
[2021-11-05] MEDS: Normal Saline 500 ML 10 ML IV (16:00)
[2021-11-05 16:07] LABS: Bacteria Negative HPF (Negative); Epithelial Cells Negative HPF (Negative); Other Cells Negative (Negative); RBC >50 HPF (0-2)
[2021-11-05 16:09] LABS: C & S Indicated? No; Casts Negative LPF (Negative); Crystals Other HPF (Negative); Mucus Negative (Negative)
[2021-11-05] MEDS: Atorvastatin 40 MG TAB PO (20:18)
[2021-11-05] MEDS: cefTRIAXone 2 GM/50 ML BAG IVPB (20:18)
[2021-11-05] MEDS: Insulin Glargine 300 UNITS/3 ML PEN 30 UNITS SC (21:15)
[2021-11-05] MEDS: Melatonin 3 MG TAB PO (21:50)
[2021-11-06] VITALS (37 sets, daily range): BP systolic 82–107; BP diastolic 49–65; PULSE 47–112; RESP 16–37; TEMP 31–36; O2SAT 89–99
[2021-11-06] MEDS: Enoxaparin 100 MG/ML SYR 90 MG SC ×2 (01:43→12:20)
[2021-11-06] MEDS: DOXYCYCLINE 100 MG in Normal Saline 100 ML IVPB (03:59)
[2021-11-06] MEDS: Normal Saline Flush 10 ML SYR IVP ×3 (04:19→20:47)
[2021-11-06 06:57] LABS: Abs Immature Grans 0.11 10^3/uL (0.0-0.06); Absolute Basophil Count 0.01 10^3/uL (0.0-0.2); Absolute Eosinophil Count 0.04 10^3/uL (0.0-0.7); Absolute Lymphocyte Count 1.48 10^3/uL (1.2-3.4); Absolute Monocyte Count 1.03 10^3/uL (0.1-0.8); Absolute Neutrophil Count 7.81 10^3/uL (1.2-6.7); Basophils % 0.1; Eosinophils % 0.4; HCT 37.5 % (36.0-46.0); HGB 12.4 g/dL (11.2-15.7); Lymphocytes % 14.1; MCH 27.7 pg (27.0-33.0); MCHC 33.1 % (32.0-36.0); MCV 83.9 fL (80-95); MPV 9.7 fL (8.0-11.0); Monocytes % 9.8; Neutrophils % 74.6; Nucleated RBC 0 %; Platelet Count 410 10^3/uL (130-400); RBC 4.47 10^6/uL (3.93-5.22); RDW 12.8 % (11.7-14.6); RDW-SD 39.1 fL; WBC 10.48 10^3/uL (4.4-10.8)
[2021-11-06 07:17] LABS: INR 1.1 (0.9-1.1); PTT Activated 29.8 sec (21.0-27.5); Prothrombin Time 11.4 sec (9.3-11.0)
[2021-11-06 07:26] LABS: ALT 40 U/L (14-59); AST 18 U/L (15-37); Albumin 2.3 g/dL (3.4-5.0); Alkaline Phosphatase 63 U/L (46-116); Anion Gap 9.2 mmol/L (3-11); BUN 23 mg/dL (7-18); Bilirubin, Total 0.4 mg/dL (0.2-1.0); C-Reactive Protein 0.41 mg/dL (0.0-0.3); CO2 24.8 mmol/L (21.0-32.0); CREATININE 0.8 mg/dL (0.55-1.02); Calcium 8.3 mg/dL (8.5-10.1); Chloride 106 mmol/L (98-107); Ferritin 275 ng/mL (8-252); Glucose 100 mg/dL (74-106); Potassium 4.1 mmol/L (3.5-5.1); Sodium 140 mmol/L (136-145); Total Protein 6.2 g/dL (6.4-8.2)
[2021-11-06 08:00] LABS: Creatine Kinase 30 U/L (26-192)
[2021-11-06 08:06] LABS: D-Dimer 1952 ng/mlFEU (<500)
--- NOTE | 2021-11-06 08:21 | PDOC.CMPRO ---
- If Service Date Differs Date of service: 11/06/21 Time of Service: 08:21 Care Management Progress Note S/O: Shira remains ICU level of care, being treated for Covid pneumonia. She is receiving Baricitinib, Remdesivir and Dexamethazone. CM unable to meet with her due to Covid isolation precautions. Per provider, Shira is showing slow improvement. Her steroids were increased last wook and that seemed to help her breathing. Today the plan is to decrease them again and discontinue antibiotics as her procalcitonin is decreasing. Shira has been cooperative with proning and using CPAP. She is being encouraged to get out of bed as much as possible. She was unable to tolerate having a CT today, but it is very possible she has a PE as her D-dimer continues to rise. A: 51 year old female admitted to [facility] on 10/27/21 with Acute hypoxic respiratory failure, Covid 19. P: Shira continues to have high supplemental oxygen requirements, and is being treated and monitored in the ICU. Oxygen will be weaned as tolerated. She may require home supplemental O2 upon discharge, coordinated by RT. Once she is medically cleared, she will return home. No anticipated services at this time. She will follow up with her PCP and discharge plan of care. CM will continue to follow.
[2021-11-06] MEDS: Cholecalciferol (Vitamin D3) 1,000 UNIT TAB 2000 UNITS PO (08:25)
[2021-11-06] MEDS: Ascorbic Acid 500 MG TAB 1000 MG PO ×2 (08:25→20:47)
[2021-11-06] MEDS: Psyllium PKT 1 EACH PO ×2 (08:25→20:46)
[2021-11-06] MEDS: Dexamethasone 10 MG/ML VIAL IVP (08:25)
[2021-11-06] MEDS: Potassium Chloride 20 MEQ TABCR PO (08:26)
[2021-11-06] MEDS: Benzonatate 200 MG CAP PO ×3 (08:26→20:46)
[2021-11-06] MEDS: Famotidine 20 MG TAB PO ×2 (08:26→20:46)
[2021-11-06] MEDS: Zinc Sulfate 220 MG TAB PO (08:26)
[2021-11-06] MEDS: guaiFENesin 600 MG TABCR PO ×2 (08:26→20:46)
[2021-11-06] MEDS: Normal Saline 500 ML 10 ML IV (08:28)
[2021-11-06] MEDS: Ipratropium/Albuterol 4 GM 120 PUFF INH IH ×4 (08:59→20:47)
[2021-11-06] MEDS: Insulin NPH-Human 300 UNITS/3 ML PEN 60 UNIT SC (09:00)
--- NOTE | 2021-11-06 09:00 | W.PULMCC ---
General Date of Service Date of service: 11/06/21 Time of Service: 08:00 Reason for Admission to ICU: COVID Assessment and Plan Assessment and plan (1) DKA (diabetic ketoacidosis): Status: Resolved (2) Acute respiratory failure with hypoxia: Status: Acute (3) COVID-19: Status: Acute (4) Obesity (BMI 30-39.9): Assessment and plan: This is a 51 yo woman admitted with severe COVID pneumonia. She is cooperative with CPAP therapy and HFNC during the day. This should be continued to facilitate ambulation and eating throughout the day. Her inflammatory markers were elevated and so is on barcitinib. Her D-dimer did increase and so Doppler studies were done of the lower extremities and were negative. She was also found to be in mild DKA that was treated appropriately without an insulin drip. Her glucose is much better controlled, albeit with alot of subcutaneous insulin. She should continue to work on ambulation and getting out of bed. She can likely have her Harris removed now. Recommendations Pulmonary: Hypoxic respiratory failure - CPAP at night, HFNC during the day - wean FiO2 as able - Acapella and IS - OOB to chair and ambulation - even to negative fluid balance daily Cardiac: No acute concerns Renal: No acute concerns I&O: Intake & Output 11/03/21 11/04/21 11/05/21 11/06/21 23:59 23:59 23:59 23:59 Intake Total 1140.000 / 7247.463 6739.667 / 4411.098 7563.166 / 1797.166 110 / 110 Output Total 850 / 850 1600 / 1600 2325 / 2325 375 / 375 Balance 290.000 / 290.000 105.667 / 105.667 -527.834 / -527.834 -265 / -265 Weight 92.2 kg 92.6 kg 92.2 kg 96.3 kg Daily Fluid Goal:: Even to negative GI Nutrition: Continue PO diet Date of Last Bowel Movement: 11/05/21 Infectious Disease: COVID-19 - agree with barcitinib, remdesivir and Decadron, but would decrease Decadron to a standard 6mg now - can discontinue antibiotics and she has received more than an adequate course for pneumonia - urine antigens for strep pneumo and legionella negative - can stop trending inflammatory markers and check again on an as needed basis Hematologic: No acute concerns Neurologic: No acute concerns Endocrine: DKA, resolved - on Lantus a total of 90U a day as well as prandial insulin - glucose still elevated - goal glucose 140-180 - has been lower which is shown to have poorer clinical outcomes for ICU patients - will leave insulin regimen dosing to primary service Lines: PICC Prophylaxis: Lovenox and famotidine Code Status: Resuscitation Status Full Code Subjective Critical and life-threatening events over the past 24 hours: Shira has continued to make some slow improvements, although she is still on similar settings to the last time I saw her. She is compliantly wearing CPAP at night and doing well on HFNC during the day. She is eating well and requiring less support when she is getting up to walk. She still has a Harris catheter. Exam Const General: no acute distress Nutritional Appearance: obese HENMT Head: normocephalic Ears: external ears normal and no periauricular adenopathy General nose exam: nasal mucous membranes and turbinates normal Face and sinus: sinuses nontender Mouth: oropharynx normal and moist mucous membranes Teeth and gingiva: dentition normal Eyes General: appearance normal, both eyes and all related structures Pupils: PERRL Neck Neck: normal visual inspection and no lymphadenopathy Chest Chest: normal inspection of the chest Resp Effort & Inspection: normal respiratory effort Auscultation: diminished lung sounds, no rales, no rhonchi and no wheezes Cardio Rate: regular rate Rhythm: regular rhythm Heart Sounds: S1 normal, S2 normal and no murmurs Pulses: radial pulses present bilaterally GI Inspection: normal to inspection Palpation: soft Skin General skin exam: no rashes or lesions noted Neuro General: patient alert, patient awake and patient oriented x3 Extrem General: no clubbing, cyanosis or edema Psych Mental Status: mental status grossly normal Affect: normal affect Attitude: cooperative Most Recent VS/Results Last Vital Signs Temp 35.8 C L 11/06/21 04:20 Pulse 51 L 11/06/21 06:01 Resp 16 11/06/21 06:01 BP 102/63 11/06/21 06:01 Pulse Ox 98 11/06/21 06:01 Laboratory Results - last 24 hr 11/05/21 11/06/21 11/06/21 14:59 06:25 06:25 WBC 10.48 RBC 4.47 Hgb 12.4 Hct 37.5 MCV 83.9 MCH 27.7 MCHC 33.1 RDW 12.8 Plt Count 410 H MPV 9.7 Immature Gran % 1.0 Neutrophils % 74.6 Lymphocytes % 14.1 Monocytes % 9.8 Eosinophils % 0.4 Basophils % 0.1 Nucleated RBC % 0 Absolute Neutrophils 7.81 H Absolute Lymphocytes 1.48 Absolute Monocytes 1.03 H Absolute Eosinophils 0.04 Absolute Basophils 0.01 PT INR APTT D-Dimer Sodium 140 Potassium 4.1 Chloride 106 Carbon Dioxide 24.8 Anion Gap 9.2 BUN 23 H Creatinine 0.8 Estimated GFR/1.73 m2 >= 60.00 Glucose 100 Calcium 8.3 L Ferritin 275 H Total Bilirubin 0.4 AST 18 ALT 40 Alkaline Phosphatase 63 Creatine Kinase 30 C-Reactive Protein 0.41 H Total Protein 6.2 L Albumin 2.3 L Urine Color Yellow Urine Clarity Clear Urine pH 5.5 Ur Specific [place] 1.025 Urine Protein Negative Urine Ketones Negative Urine Blood Large H Urine Nitrite Negative Urine Bilirubin Negative Urine Urobilinogen 0.2 Ur Leukocyte Esterase Negative Urine RBC >50 H Urine WBC 3-5 Ur Epithelial Cells Negative Urine Crystals Other Urine Bacteria Negative Urine Casts Negative Urine Mucus Negative Urine Other Negative Ur Culture Indicated? No Urine Glucose 500 H 11/06/21 06:25 WBC RBC Hgb Hct MCV MCH MCHC RDW Plt Count MPV Immature Gran % Neutrophils % Lymphocytes % Monocytes % Eosinophils % Basophils % Nucleated RBC % Absolute Neutrophils Absolute Lymphocytes Absolute Monocytes Absolute Eosinophils Absolute Basophils PT 11.4 H INR 1.1 APTT 29.8 H D-Dimer 1952 H Sodium Potassium Chloride Carbon Dioxide Anion Gap BUN Creatinine Estimated GFR/1.73 m2 Glucose Calcium Ferritin Total Bilirubin AST ALT Alkaline Phosphatase Creatine Kinase C-Reactive Protein Total Protein Albumin Urine Color Urine Clarity Urine pH Ur Specific [place] Urine Protein Urine Ketones Urine Blood Urine Nitrite Urine Bilirubin Urine Urobilinogen Ur Leukocyte Esterase Urine RBC Urine WBC Ur Epithelial Cells Urine Crystals Urine Bacteria Urine Casts Urine Mucus Urine Other Ur Culture Indicated? Urine Glucose Review of Systems All systems reviewed & are unremarkable except as noted in HPI and below Time spent with patient Time spent in Critical Care: 35 Time spent in Critical care included: Coordination of care, Chart review, Documenting critically ill care, Time at immediate bedside and Discussing critically ill care with other medical staff
[2021-11-06] MEDS: Insulin Aspart 300 UNITS/3 ML PEN SC ×6 (09:39→22:08)
--- NOTE | 2021-11-06 11:18 | W.DIABETESNO ---
Date of service: 11/06/21 Time of Service: 11:18 Diabetes Note NOTE: PO intake is consistently good on CHO consistent diet. Her weight is fairly stable. Blood sugars will likely be more often at target with the addition of NPH and changing correction scale to resistant and also changing carbohydrate correction to 2 units per 10 grams of CHO. Will continue to follow nutritional status and blood sugars. Time Spent in Nutritional Counseling and Treatment: 0
--- NOTE | 2021-11-06 11:55 | W.PM.PROGNOT ---
Date of Service Date of service: 11/06/21 Time of Service: 11:55 Assessment and Plan Assessment and plan (1) Acute respiratory failure with hypoxia: Status: Acute Assessment and plan: Primarily due to COVID-19 pneumonia. Patient probably had a superimposed bacterial lower respiratory tract infection but has now completed a course of antibiotics with ceftriaxone doxycycline has had 2 - procalcitonin levels. I have discontinued her ceftriaxone and doxycycline. Continue to treat her COVID-19 with baricitinib and Decadron and Remdesivir. Continue to encourage proning and wearing of her CPAP mask. Patient is currently on high-dose Decadron 10 mg daily which was initiated by one of my colleagues when she was having worsening hypoxemia last week. Since being on the higher dose Decadron and increasing her CPAP to 16 cm patient has had improvement. We will start to wean down the Decadron to 6 mg daily but continue with the CPAP and proning. Hopefully decrease her Decadron will help reduce some of her blood sugars. She is on NPH for coverage of her steroids and she is also on basal bolus insulin with Lantus and NovoLog including carb coverage. Encourage the patient to be out of bed as much as tolerated but when in bed she should be proning. My colleague also increased the patient's enoxaparin dose to full therapeutic levels of 1 mg/kg q12h out of concern that the patient had a rising D-dimer level is gone from 2200 to greater than 7500 and remain elevated. Patient was too hypoxemic to tolerate going for CT of her chest to rule out a PE. So the presumption was that she probably had a PE. This point we will continue therapeutic dose Lovenox until we can do a formal study. She had a venous duplex scan of her legs on 10/30/2021 along with an echocardiogram. At that time no DVT was seen and no evidence of right heart strain. Nevertheless the fact that the patient's D-dimer increased dramatically in association with her worsening hypoxemia suggests a high probability of a PE. Therefore I agree with continued empiric treatment. (2) COVID-19: Status: Acute Assessment and plan: as above (3) Pulmonary embolism: Status: Suspected Assessment and plan: Last week patient experienced worsening hypoxemia along with rising D-dimer suspicious for PE. Patient was too medically unstable to undergo formal CTA of her chest and therefore she was placed on therapeutic Lovenox. Patient has been improving therefore we will continue empiric treatment for PE until proven otherwise. Venous duplex scan of the legs last week was negative for DVT and echocardiogram showed no RV strain. D-dimer has been declining ever since she went on the higher dose Lovenox. Qualifiers: Pulmonary embolism type: unspecified Chronicity: acute Acute cor pulmonale presence: without acute cor pulmonale Qualified Code(s): I26.99 - Other pulmonary embolism without acute cor pulmonale (4) Newly diagnosed diabetes: Status: Acute Assessment and plan: A1C 12.9. Patient presented in DKA was treated with insulin drip now currently on basal bolus insulin along with carb coverage. Currently on insulin resistant NovoLog corrective scale along with carb coverage at a ratio of 2:10. Fasting blood sugar down to 100 this morning. I will decrease her Lantus down to 25 units at night. Continue with NPH coverage for her elevated sugars related to her Decadron. (5) Obesity (BMI 30-39.9): Assessment and plan: Needs outpatient follow up for lifestyle modifications TSH wnl. Does have evidence of hirsutism on my exam and could potentially have PCOS. (6) DVT prophylaxis: Status: Acute Assessment and plan: SC enoxaparin at therapeutic levels at 90 mg subcutaneously every 12 hours due to recent rising D-dimer level associated with worsening hypoxemia suspicious for PE. Work-up for DVT was negative. Echocardiogram was negative for right heart strain. Patient's D-dimer is now declining since going on the higher dose Lovenox. We will continue empiric treatment for PE. (7) Discharge planning issues: Status: Acute Assessment and plan: Full code Keep in ICU. Total Critical Care Time 30 minutes Subjective Subjective Interval history since last seen: Patient feels better she is less short of breath denies any chest pain. Cough is minimal with no sputum production. She is afebrile. She has had a couple of normal procalcitonin levels now and at this point I do not think she needs further antibiotics I am discontinuing her ceftriaxone and doxycycline. Patient's been practicing proning and has been cooperative with wearing her CPAP. Currently on CPAP 16 cm FiO2 60% and has been maintaining oxygen saturation 98%. When she is up and about she wears a high flow nasal cannula at 60 L/min but does require an FiO2 of 90%. Exam Narrative Exam Narrative: Pleasant middle-aged obese white female is currently in the prone position wearing her high flow nasal cannula. Lungs are remarkably clear to auscultation. Heart regular rate and rhythm Lower extremities without calf swelling or tenderness. Abdomen not examined as she was lying in the prone position Objective Last Vital Signs Temp 35.7 C L 11/06/21 09:00 Pulse 51 L 11/06/21 06:01 Resp 16 11/06/21 06:01 BP 102/63 11/06/21 06:01 Pulse Ox 98 11/06/21 06:01 Laboratory Results - last 24 hr 11/05/21 11/06/21 11/06/21 14:59 06:25 06:25 WBC 10.48 RBC 4.47 Hgb 12.4 Hct 37.5 MCV 83.9 MCH 27.7 MCHC 33.1 RDW 12.8 Plt Count 410 H MPV 9.7 Immature Gran % 1.0 Neutrophils % 74.6 Lymphocytes % 14.1 Monocytes % 9.8 Eosinophils % 0.4 Basophils % 0.1 Nucleated RBC % 0 Absolute Neutrophils 7.81 H Absolute Lymphocytes 1.48 Absolute Monocytes 1.03 H Absolute Eosinophils 0.04 Absolute Basophils 0.01 PT INR APTT D-Dimer Sodium 140 Potassium 4.1 Chloride 106 Carbon Dioxide 24.8 Anion Gap 9.2 BUN 23 H Creatinine 0.8 Estimated GFR/1.73 m2 >= 60.00 Glucose 100 Calcium 8.3 L Ferritin 275 H Total Bilirubin 0.4 AST 18 ALT 40 Alkaline Phosphatase 63 Creatine Kinase 30 C-Reactive Protein 0.41 H Total Protein 6.2 L Albumin 2.3 L Urine Color Yellow Urine Clarity Clear Urine pH 5.5 Ur Specific [place] 1.025 Urine Protein Negative Urine Ketones Negative Urine Blood Large H Urine Nitrite Negative Urine Bilirubin Negative Urine Urobilinogen 0.2 Ur Leukocyte Esterase Negative Urine RBC >50 H Urine WBC 3-5 Ur Epithelial Cells Negative Urine Crystals Other Urine Bacteria Negative Urine Casts Negative Urine Mucus Negative Urine Other Negative Ur Culture Indicated? No Urine Glucose 500 H 11/06/21 06:25 WBC RBC Hgb Hct MCV MCH MCHC RDW Plt Count MPV Immature Gran % Neutrophils % Lymphocytes % Monocytes % Eosinophils % Basophils % Nucleated RBC % Absolute Neutrophils Absolute Lymphocytes Absolute Monocytes Absolute Eosinophils Absolute Basophils PT 11.4 H INR 1.1 APTT 29.8 H D-Dimer 1952 H Sodium Potassium Chloride Carbon Dioxide Anion Gap BUN Creatinine Estimated GFR/1.73 m2 Glucose Calcium Ferritin Total Bilirubin AST ALT Alkaline Phosphatase Creatine Kinase C-Reactive Protein Total Protein Albumin Urine Color Urine Clarity Urine pH Ur Specific [place] Urine Protein Urine Ketones Urine Blood Urine Nitrite Urine Bilirubin Urine Urobilinogen Ur Leukocyte Esterase Urine RBC Urine WBC Ur Epithelial Cells Urine Crystals Urine Bacteria Urine Casts Urine Mucus Urine Other Ur Culture Indicated? Urine Glucose
[2021-11-06] MEDS: Lactobacillus Acidophilus CAP 1 CAP PO ×2 (13:33→20:46)
[2021-11-06] MEDS: Melatonin 3 MG TAB PO (20:46)
[2021-11-06] MEDS: Atorvastatin 40 MG TAB PO (20:47)
[2021-11-06] MEDS: LORazepam 1 MG TAB PO (21:06)
[2021-11-06] MEDS: Insulin Glargine 300 UNITS/3 ML PEN 25 UNITS SC (22:07)
[2021-11-07] VITALS (33 sets, daily range): BP systolic 83–105; BP diastolic 48–60; PULSE 52–109; RESP 17–32; TEMP 31–36.8; O2SAT 85–99
[2021-11-07] MEDS: Enoxaparin 100 MG/ML SYR 90 MG SC ×2 (01:00→12:14)
[2021-11-07 07:21] LABS: Abs Immature Grans 0.08 10^3/uL (0.0-0.06); Absolute Basophil Count 0.01 10^3/uL (0.0-0.2); Absolute Eosinophil Count 0.09 10^3/uL (0.0-0.7); Absolute Monocyte Count 0.92 10^3/uL (0.1-0.8); Absolute Neutrophil Count 7.47 10^3/uL (1.2-6.7); Basophils % 0.1; Eosinophils % 0.9; HCT 35.7 % (36.0-46.0); HGB 11.9 g/dL (11.2-15.7); Immature Grans % 0.8; Lymphocytes % 17.4; MCH 28.4 pg (27.0-33.0); MCHC 33.3 % (32.0-36.0); MCV 85.2 fL (80-95); Monocytes % 8.9; Neutrophils % 71.9; Nucleated RBC 0 %; Platelet Count 383 10^3/uL (130-400); RBC 4.19 10^6/uL (3.93-5.22); RDW 12.7 % (11.7-14.6); RDW-SD 39.1 fL; WBC 10.37 10^3/uL (4.4-10.8)
[2021-11-07 07:32] LABS: INR 1.1 (0.9-1.1); PTT Activated 27.7 sec (21.0-27.5); Prothrombin Time 11.2 sec (9.3-11.0)
[2021-11-07 08:16] LABS: D-Dimer 1701 ng/mlFEU (<500)
[2021-11-07] MEDS: Ipratropium/Albuterol 4 GM 120 PUFF INH IH ×4 (08:30→20:57)
[2021-11-07] MEDS: Insulin NPH-Human 300 UNITS/3 ML PEN 70 UNIT SC (08:30)
--- NOTE | 2021-11-07 08:32 | PUCC_ITS ---
General Date of Service Date of service: 11/07/21 Time of Service: 08:00 Reason for Admission to ICU: COVID Assessment and Plan Assessment and plan (1) DKA (diabetic ketoacidosis): Status: Resolved (2) Acute respiratory failure with hypoxia: Status: Acute (3) COVID-19: Status: Acute (4) Obesity (BMI 30-39.9): Assessment and plan: This is a 51 yo woman admitted with severe COVID pneumonia. She is cooperative with CPAP therapy and HFNC during the day. This should be continued to facilitate ambulation and eating throughout the day. Her inflammatory markers were elevated and so is on barcitinib. Her D-dimer did in crease and so Doppler studies were done of the lower extremities and were negative. She was also found to be in mild DKA that was treated appropriately without an insulin drip. Her glucose is much better controlled, albeit with alot of subcutaneous insulin. She should continue to work on ambulation and getting out of bed. Although progress is slow she is heading in the right direction, recovery [place]. Recommendations Pulmonary: Hypoxic respiratory failure - CPAP at night, HFNC during the day - wean FiO2 aggressively as able - O2 sat goal >90% - Acapella and IS - OOB to chair and ambulation - even to negative fluid balance daily Cardiac: No acute concerns Renal: No acute concerns I&O: Intake & Output 11/04/21 11/05/21 11/06/21 11/07/21 23:59 23:59 23:59 23:59 Intake Total 1705.667 / 7313.092 2715.166 / 1797.166 765.333 / 765.333 50 / 50 Output Total 1600 / 1600 2325 / 2325 1255 / 1255 Balance 105.667 / 105.667 -527.834 / -527.834 -489.667 / -489.667 50 / 50 Weight 92.6 kg 92.2 kg 96.3 kg 93.4 kg Daily Fluid Goal:: Even to negative GI Nutrition: [place] PO diet Date of Last Bowel Movement: 11/06/21 Infectious Disease: COVID-19 - agree with barcitinib, remdesivir and Decadron - can discontinue antibiotics and she has received more than an adequate course for pneumonia - urine antigens for strep pneumo and legionella negative - can stop trending inflammatory markers and check again on an as needed basis Hematologic: No acute concerns Neurologic: No acute concerns Endocrine: DKA, resolved - on Lantus a total of 90U a day as well as prandial insulin - glucose still elevated - goal glucose 140-180 - has been lower which is shown to have poorer clinical outcomes for ICU patients - will leave insulin regimen dosing to primary service Lines: PICC Prophylaxis: Lovenox and famotidine Code Status: Resuscitation Status Full Code Subjective Critical and life-threatening events over the past 24 hours: Shira continues to make slow improvements. She is very compliant with CPAP and wore it for 7 hours overnight. She continues to feel okay. She gets out of bed and walks and although needs significant O2 support in doing this she is able to maintain appropriate saturations. Exam Const General: no acute distress Nutritional Appearance: obese HENMT Head: normocephalic Ears: external ears normal and no periauricular adenopathy General nose exam: nasal mucous membranes and turbinates normal Face and sinus: sinuses nontender Mouth: oropharynx normal and moist mucous membranes Teeth and gingiva: dentition normal Eyes General: appearance normal, both eyes and all related structures Pupils: PERRL Neck Neck: normal visual inspection and no lymphadenopathy Chest Chest: normal inspection of the chest Resp Effort & Inspection: normal respiratory effort Auscultation: diminished lung sounds, no rales, no rhonchi and no wheezes Cardio Rate: regular rate Rhythm: regular rhythm Heart Sounds: S1 normal, S2 normal and no murmurs Pulses: radial pulses present bilaterally GI Inspection: normal to inspection Palpation: soft Skin General skin exam: no rashes or lesions noted Neuro General: patient alert, patient awake and patient oriented x3 Extrem General: no clubbing, cyanosis or edema Psych Mental Status: mental status grossly normal Affect: normal affect Attitude: cooperative Most Recent VS/Results Last Vital Signs Temp 35.7 C L 11/07/21 04:00 Pulse 60 11/07/21 06:58 Resp 26 H 11/07/21 07:00 BP 94/57 L 11/07/21 06:58 Pulse Ox 98 11/07/21 07:00 Laboratory Results - last 24 hr 11/07/21 11/07/21 06:55 06:55 WBC 10.37 RBC 4.19 Hgb 11.9 Hct 35.7 L MCV 85.2 MCH 28.4 MCHC 33.3 RDW 12.7 Plt Count 383 MPV 10.0 Immature Gran % 0.8 Neutrophils % 71.9 Lymphocytes % 17.4 Monocytes % 8.9 Eosinophils % 0.9 Basophils % 0.1 Nucleated RBC % 0 Absolute Neutrophils 7.47 H Absolute Lymphocytes 1.80 Absolute Monocytes 0.92 H Absolute Eosinophils 0.09 Absolute Basophils 0.01 PT 11.2 H INR 1.1 APTT 27.7 H D-Dimer 1701 H Review of Systems All systems reviewed & are unremarkable except as noted in HPI and below Time spent with patient Time spent in Critical Care: 35 Time spent in Critical care included: Coordination of care, Chart review, Documenting critically ill care, Time at immediate bedside and Discussing critically ill care with other medical staff
[2021-11-07] MEDS: Famotidine 20 MG TAB PO ×2 (08:44→20:57)
[2021-11-07] MEDS: Zinc Sulfate 220 MG TAB PO (08:46)
[2021-11-07] MEDS: Benzonatate 200 MG CAP PO ×3 (08:47→20:56)
[2021-11-07] MEDS: Cholecalciferol (Vitamin D3) 1,000 UNIT TAB 2000 UNITS PO (08:47)
[2021-11-07] MEDS: Lactobacillus Acidophilus CAP 1 CAP PO ×3 (08:47→20:57)
[2021-11-07] MEDS: Ascorbic Acid 500 MG TAB 1000 MG PO ×2 (08:47→20:57)
[2021-11-07] MEDS: Dexamethasone 10 MG/ML VIAL 6 MG IVP (08:51)
[2021-11-07 08:54] LABS: ALT 39 U/L (14-59); AST 19 U/L (15-37); Albumin 2.4 g/dL (3.4-5.0); Alkaline Phosphatase 57 U/L (46-116); Anion Gap 8.8 mmol/L (3-11); BUN 23 mg/dL (7-18); Bilirubin, Total 0.5 mg/dL (0.2-1.0); C-Reactive Protein 0.28 mg/dL (0.0-0.3); CO2 26.2 mmol/L (21.0-32.0); CREATININE 0.6 mg/dL (0.55-1.02); Calcium 8.3 mg/dL (8.5-10.1); Chloride 105 mmol/L (98-107); Creatine Kinase 23 U/L (26-192); Glucose 142 mg/dL (74-106); Potassium 3.9 mmol/L (3.5-5.1); Sodium 140 mmol/L (136-145); Total Protein 6.1 g/dL (6.4-8.2)
[2021-11-07] MEDS: Normal Saline Flush 10 ML SYR IVP ×2 (08:56→18:41)
[2021-11-07] MEDS: Insulin Aspart 300 UNITS/3 ML PEN SC ×6 (09:17→22:01)
[2021-11-07] MEDS: guaiFENesin 600 MG TABCR PO ×2 (09:17→20:57)
[2021-11-07 10:05] LABS: Ferritin 274 ng/mL (8-252)
[2021-11-07 12:35] LABS: Source Nasal/Nares
[2021-11-07 13:52] LABS: COVID-19 PCR Negative (Negative)
--- NOTE | 2021-11-07 16:41 | W.PM.PROGNOT ---
Date of Service Date of service: 11/07/21 Time of Service: 16:41 Assessment and Plan Assessment and plan (1) Acute respiratory failure with hypoxia: Status: Acute Assessment and plan: Primarily due to COVID-19 pneumonia. Patient probably had a superimposed bacterial lower respiratory tract infection but has now completed a course of antibiotics with ceftriaxone doxycycline has had 2 - procalcitonin levels. I have discontinued her ceftriaxone and doxycycline. Continue to treat her COVID-19 with baricitinib and Decadron and Remdesivir. Continue to encourage proning and wearing of her CPAP mask. Patient is currently on high-dose Decadron 10 mg daily which was initiated by one of my colleagues when she was having worsening hypoxemia last week. Since being on the higher dose Decadron and increasing her CPAP to 16 cm patient has had improvement. We will start to wean down the Decadron to 6 mg daily but continue with the CPAP and proning. Hopefully decrease her Decadron will help reduce some of her blood sugars. She is on NPH for coverage of her steroids and she is also on basal bolus insulin with Lantus and NovoLog including carb coverage. Encourage the patient to be out of bed as much as tolerated but when in bed she should be proning. My colleague also increased the patient's enoxaparin dose to full therapeutic levels of 1 mg/kg q12h out of concern that the patient had a rising D-dimer level is gone from 2200 to greater than 7500 and remain elevated. Patient was too hypoxemic to tolerate going for CT of her chest to rule out a PE. So the presumption was that she probably had a PE. This point we will continue therapeutic dose Lovenox until we can do a formal study. She had a venous duplex scan of her legs on 10/30/2021 along with an echocardiogram. At that time no DVT was seen and no evidence of right heart strain. Nevertheless the fact that the patient's D-dimer increased dramatically in association with her worsening hypoxemia suggests a high probability of a PE. D dimer and CRP now trending downward. (2) COVID-19: Status: Acute Assessment and plan: as above (3) Pulmonary embolism: Status: Suspected Assessment and plan: Continues on CPAP at night and high flow nasal cannula during the day Covid re-test negative today; will take out of precautions. Qualifiers: Pulmonary embolism type: unspecified Chronicity: acute Acute cor pulmonale presence: without acute cor pulmonale Qualified Code(s): I26.99 - Other pulmonary embolism without acute cor pulmonale (4) Newly diagnosed diabetes: Status: Acute Assessment and plan: A1C 12.9. Patient presented in DKA was treated with insulin drip now currently on basal bolus insulin along with carb coverage. Currently on insulin resistant NovoLog corrective scale along with carb coverage at a ratio of 2:10. Continue with NPH coverage for her elevated sugars related to her Decadron. Continue Lantus; adjusting dosage as necessary. (5) Obesity (BMI 30-39.9): Assessment and plan: Needs outpatient follow up for lifestyle modifications TSH wnl. Does have evidence of hirsutism on my exam and could potentially have PCOS. (6) DVT prophylaxis: Status: Acute Assessment and plan: SC enoxaparin at therapeutic levels at 90 mg subcutaneously every 12 hours due to recent rising D-dimer level associated with worsening hypoxemia suspicious for PE. Work-up for DVT was negative. Echocardiogram was negative for right heart strain. Patient's D-dimer is now declining since going on the higher dose Lovenox. We will continue empiric treatment for PE. (7) Discharge planning issues: Status: Acute Assessment and plan: Full code Keep in ICU. Total Critical Care Time 30 minutes Subjective Subjective Patient reports: no new complaints, feels better, tolerating a regular diet and afebrile; denies nausea and vomiting Exam Narrative Exam Narrative: Pleasant middle-aged obese white female lying on side Lungs are clear to auscultation. Heart regular rate and rhythm Lower extremities without calf swelling or tenderness. Abdomen NT,ND Objective Last Vital Signs Temp 35.9 C L 11/07/21 12:00 Pulse 57 L 11/07/21 16:33 Resp 21 11/07/21 16:33 BP 100/56 L 11/07/21 16:33 Pulse Ox 95 11/07/21 16:33 Laboratory Results - last 24 hr 11/07/21 11/07/21 11/07/21 06:55 06:55 06:55 WBC 10.37 RBC 4.19 Hgb 11.9 Hct 35.7 L MCV 85.2 MCH 28.4 MCHC 33.3 RDW 12.7 Plt Count 383 MPV 10.0 Immature Gran % 0.8 Neutrophils % 71.9 Lymphocytes % 17.4 Monocytes % 8.9 Eosinophils % 0.9 Basophils % 0.1 Nucleated RBC % 0 Absolute Neutrophils 7.47 H Absolute Lymphocytes 1.80 Absolute Monocytes 0.92 H Absolute Eosinophils 0.09 Absolute Basophils 0.01 PT 11.2 H INR 1.1 APTT 27.7 H D-Dimer 1701 H Sodium 140 Potassium 3.9 Chloride 105 Carbon Dioxide 26.2 Anion Gap 8.8 BUN 23 H Creatinine 0.6 Estimated GFR/1.73 m2 >= 60.00 Glucose 142 H Calcium 8.3 L Ferritin 274 H Total Bilirubin 0.5 AST 19 ALT 39 Alkaline Phosphatase 57 Creatine Kinase 23 L C-Reactive Protein 0.28 Total Protein 6.1 L Albumin 2.4 L COVID-19 Source SARS-CoV-2 (PCR) 11/07/21 12:28 WBC RBC Hgb Hct MCV MCH MCHC RDW Plt Count MPV Immature Gran % Neutrophils % Lymphocytes % Monocytes % Eosinophils % Basophils % Nucleated RBC % Absolute Neutrophils Absolute Lymphocytes Absolute Monocytes Absolute Eosinophils Absolute Basophils PT INR APTT D-Dimer Sodium Potassium Chloride Carbon Dioxide Anion Gap BUN Creatinine Estimated GFR/1.73 m2 Glucose Calcium Ferritin Total Bilirubin AST ALT Alkaline Phosphatase Creatine Kinase C-Reactive Protein Total Protein Albumin COVID-19 Source Nasal/Nares SARS-CoV-2 (PCR) Negative
--- NOTE | 2021-11-07 19:27 | CMPROGNOTE_ITS ---
- If Service Date Differs Date of service: 11/07/21 Time of Service: 19:27 Care Management Progress Note S/O: Shira remains ICU level of care, being treated for Covid pneumonia. She is receiving Baricitinib, Remdesivir and Dexamethazone. CM unable to meet with her due to Covid isolation precautions. Per report, she is being encouraged to ambulate, and she is cooperative with wearing CPAP and HFNC. Per RN, she is being retested for COVID today, and may be removed from isolation if her test is negative. CM will continue to follow. A: 51 year old female admitted to [facility] on 10/27/21 with Acute hypoxic respiratory failure, Covid 19. P: Shira continues to have high supplemental oxygen requirements, and is being treated and monitored in the ICU. Oxygen will be weaned as tolerated. She may require home supplemental O2 upon discharge, coordinated by RT. Once she is medically cleared, she will return home. No anticipated services at this time. She will follow up with her PCP and discharge plan of care. CM will continue to follow.
[2021-11-07] MEDS: Atorvastatin 40 MG TAB PO (20:57)
[2021-11-07] MEDS: Insulin Glargine 300 UNITS/3 ML PEN 25 UNITS SC (22:02)
[2021-11-07] MEDS: Melatonin 3 MG TAB PO (23:19)
[2021-11-07] MEDS: LORazepam 1 MG TAB PO (23:19)
[2021-11-08] VITALS (63 sets, daily range): BP systolic 83–104; BP diastolic 42–67; PULSE 45–115; RESP 15–42; TEMP 31–36.6; O2SAT 85–100
[2021-11-08] MEDS: Enoxaparin 100 MG/ML SYR 90 MG SC (02:03)
[2021-11-08] MEDS: Ipratropium/Albuterol 4 GM 120 PUFF INH IH ×4 (09:02→22:53)
--- NOTE | 2021-11-08 09:14 | PUCC_ITS ---
General Date of Service Date of service: 11/08/21 Time of Service: 07:30 Reason for Admission to ICU: COVID Assessment and Plan Assessment and plan (1) DKA (diabetic ketoacidosis): Status: Resolved (2) Acute respiratory failure with hypoxia: Status: Acute (3) COVID-19: Status: Acute (4) Obesity (BMI 30-39.9): Assessment and plan: This is a 51 yo woman admitted with severe COVID pneumonia. She is cooperative with CPAP therapy and HFNC during the day. This should be continued to facilitate ambulation and eating throughout the day. Her inflammatory markers were elevated and so is on barcitinib. Her D-dimer did in crease and so Doppler studies were done of the lower extremities and were negative (her admission CT is negative for PE). She was also found to be in mild DKA that was treated appropriately without an insulin drip. Her glucose is much better controlled, albeit with alot of subcutaneous insulin. She should continue to work on ambulation and getting out of bed. Although progress is slow she is heading in the right direction, recovery darby. We should be more aggressive about weaning her FiO2 needs. Her COVID test has returned negative 11/07/20 and she is 20 days out from diagnosis so it was safe to remove her from precautions, which was done. Recommendations Pulmonary: Hypoxic respiratory failure - CPAP at night, HFNC during the day - wean FiO2 aggressively as able - O2 sat goal >90% - Acapella and IS - OOB to chair and ambulation - even to negative fluid balance daily Cardiac: No acute concerns Renal: No acute concerns I&O: Intake & Output 11/05/21 11/06/21 11/07/21 11/08/21 23:59 23:59 23:59 23:59 Intake Total 1797.166 / 1797.166 765.333 / 765.333 530 / 530 600 / 600 Output Total 2325 / 2325 1255 / 1255 925 / 925 Balance -527.834 / -527.834 -489.667 / -489.667 -395 / -395 600 / 600 Weight 92.2 kg 96.3 kg 93.4 kg Daily Fluid Goal:: Even to negative GI Nutrition: PO diet Date of Last Bowel Movement: 11/07/21 Infectious Disease: COVID-19 - agree with barcitinib, remdesivir and Decadron - can discontinue antibiotics and she has received more than an adequate course for pneumonia - urine antigens for strep pneumo and legionella negative - can stop trending inflammatory markers and check again on an as needed basis Hematologic: On therapeutic Lovenox - recommend decreasing this to DVT ppx dosing Neurologic: No acute concerns Endocrine: DKA, resolved - on high insulin requirements - glucose improved - goal glucose 140-180 - will leave insulin regimen dosing to primary service Lines: PICC Prophylaxis: famotidine and Lovenox Code Status: Resuscitation Status Full Code Subjective Critical and life-threatening events over the past 24 hours: Shira is feeling well. She continues to improve. She has a good appetite and is breathing comfortably. In the room this morning she was on CPAP and i titrated her pressure down to [id number] and her FiO2 to 45% and her saturation held well at 98%. We can be more aggressive about O2 weaning. Exam Const General: no acute distress Nutritional Appearance: obese HENMT Head: normocephalic Ears: external ears normal and no periauricular adenopathy General nose exam: nasal mucous membranes and turbinates normal Face and sinus: sinuses nontender Mouth: oropharynx normal and moist mucous membranes Teeth and gingiva: dentition normal Eyes General: appearance normal, both eyes and all related structures Pupils: PERRL Neck Neck: normal visual inspection and no lymphadenopathy Chest Chest: normal inspection of the chest Resp Effort & Inspection: normal respiratory effort Auscultation: diminished lung sounds, no rales, no rhonchi and no wheezes Cardio Rate: regular rate Rhythm: regular rhythm Heart Sounds: S1 normal, S2 normal and no murmurs Pulses: radial pulses present bilaterally GI Inspection: normal to inspection Palpation: soft Skin General skin exam: no rashes or lesions noted Neuro General: patient alert, patient awake and patient oriented x3 Extrem General: no clubbing, cyanosis or edema Psych Mental Status: mental status grossly normal Affect: normal affect Attitude: cooperative Most Recent VS/Results Last Vital Signs Temp 36.6 C 11/08/21 04:23 Pulse 56 L 11/07/21 21:04 Resp 27 H 11/08/21 07:00 BP 90/56 L 11/08/21 06:58 Pulse Ox 98 11/08/21 07:00 Laboratory Results - last 24 hr 11/07/21 11/07/21 06:55 12:28 Ferritin 274 H COVID-19 Source Nasal/Nares SARS-CoV-2 (PCR) Negative Review of Systems All systems reviewed & are unremarkable except as noted in HPI and below Time spent with patient Time spent in Critical Care: 35 Time spent in Critical care included: Coordination of care, Chart review, Documenting critically ill care, Time at immediate bedside and Discussing critically ill care with other medical staff
[2021-11-08] MEDS: Normal Saline Flush 10 ML SYR IVP ×2 (10:33→19:42)
[2021-11-08] MEDS: Benzonatate 200 MG CAP PO ×3 (10:34→19:41)
[2021-11-08] MEDS: Famotidine 20 MG TAB PO ×2 (10:34→19:42)
[2021-11-08] MEDS: Ascorbic Acid 500 MG TAB 1000 MG PO ×2 (10:34→19:41)
[2021-11-08] MEDS: Lactobacillus Acidophilus CAP 1 CAP PO ×3 (10:34→19:42)
[2021-11-08] MEDS: Zinc Sulfate 220 MG TAB PO (10:35)
[2021-11-08] MEDS: Dexamethasone 10 MG/ML VIAL 6 MG IVP (10:35)
[2021-11-08] MEDS: Psyllium PKT 1 EACH PO (10:35)
[2021-11-08] MEDS: Insulin Aspart 300 UNITS/3 ML PEN SC ×5 (10:36→17:28)
[2021-11-08] MEDS: Cholecalciferol (Vitamin D3) 1,000 UNIT TAB 2000 UNITS PO (10:37)
[2021-11-08] MEDS: guaiFENesin 600 MG TABCR PO ×2 (10:37→19:41)
[2021-11-08] MEDS: Insulin NPH-Human 300 UNITS/3 ML PEN 70 UNIT SC (10:38)
--- NOTE | 2021-11-08 14:15 | PGE_ITS ---
Date of Service Date of service: 11/08/21 Time of Service: 14:15 Assessment and Plan Assessment and plan (1) Acute respiratory failure with hypoxia: Status: Acute Assessment and plan: Secondary to Covid Pneumonia. Also concerned initially of possible superimposed bacterial pneumonia; completed course of antibiotics. D dimer and CRP now trending downward. At time of my visit; high flow NC with FiO2 of 45. (2) COVID-19: Status: Acute Assessment and plan: Day 10/17 of Baricitinib. On Dexamethasone 6mg IV daily; consider changing to po. Remdesivir bag 3 of 4. (3) Newly diagnosed diabetes: Status: Acute Assessment and plan: A1C 12.9. Patient presented in DKA was treated with insulin drip now currently on basal bolus insulin along with carb coverage. Currently on insulin resistant NovoLog corrective scale along with carb coverage at a ratio of 2:10. Continue with NPH coverage for her elevated sugars related to her Decadron. Continue Lantus; adjusting dosage as necessary. (4) Obesity (BMI 30-39.9): Assessment and plan: Needs outpatient follow up for lifestyle modifica tions TSH wnl. Does have evidence of hirsutism on my exam and could potentially have PCOS. (5) DVT prophylaxis: Status: Acute Assessment and plan: Pt previously on therapeutic dose of lovenox out of pulmonary embolism concerns. No CT chest performed. Now back on prophylactic lovenox dosing. D-dimer trending down. (6) Discharge planning issues: Status: Acute Assessment and plan: Full code ICU care Out of precautions. Subjective Subjective Patient reports: no new complaints, tolerating a regular diet, bowel movement and afebrile; denies nausea and vomiting Exam Narrative Exam Narrative: Pleasant middle-aged obese white female sitting in chair Lungs are clear to auscultation. Heart regular rate and rhythm Lower extremities without calf swelling or tenderness. Abdomen NT,ND Objective Last Vital Signs Temp 36.6 C 11/08/21 04:23 Pulse 56 L 11/07/21 21:04 Resp 27 H 11/08/21 07:00 BP 90/56 L 11/08/21 06:58 Pulse Ox 98 11/08/21 07:00
--- NOTE | 2021-11-08 18:50 | PDOC.CMPRO ---
- If Service Date Differs Date of service: 11/08/21 Time of Service: 18:50 Care Management Progress Note S/O: Shira had a repeat Covid test yesterday, which was negative, therefore her Covid restrictions were lifted. CM met with her in person today, she was pleasant and engaged in conversation. She reported that she is feeling much better today, although she continues to have high O2 requirements. She is being weaned as tolerated with a goal to maintain her O2 saturation on room air. CM discussed her self pay status, and offered resources for patient assistance. Shira is looking forward to returning home once medically cleared, but is very happy with the care she is receiving at [facility]. CM will continue to follow. A: 51 year old female admitted to [facility] on 10/27/21 with Acute hypoxic respiratory failure, Covid 19. P: Shira continues to have high supplemental oxygen requirements, and is being treated and monitored in the ICU. Oxygen will be weaned as tolerated. She may require home supplemental O2 upon discharge, coordinated by RT. Once she is medically cleared, she will return home. No anticipated services at this time. She will follow up with her PCP and discharge plan of care. CM will continue to follow.
--- NOTE | 2021-11-08 18:53 | NUR.NOTE ---
Optiflow: 45L 45% down to 45l 30% when resting in lat or ABD prone with sat>92% FiO2 increased up to 60% for ambulation , BRP, ADL's
[2021-11-08] MEDS: Atorvastatin 40 MG TAB PO (19:42)
[2021-11-08] MEDS: Melatonin 3 MG TAB PO (22:47)
[2021-11-08] MEDS: LORazepam 1 MG TAB PO (22:47)
[2021-11-08] MEDS: Insulin Glargine 300 UNITS/3 ML PEN 25 UNITS SC (22:53)
[2021-11-09] VITALS (74 sets, daily range): BP systolic 90–103; BP diastolic 47–60; PULSE 47–117; RESP 0–41; TEMP 31–36.8; O2SAT 86–99
[2021-11-09 07:01] LABS: C-Reactive Protein 0.14 mg/dL (0.0-0.3)
[2021-11-09 07:27] LABS: D-Dimer 1002 ng/mlFEU (<500)
[2021-11-09] MEDS: Ipratropium/Albuterol 4 GM 120 PUFF INH IH ×4 (08:13→21:53)
[2021-11-09] MEDS: Insulin Aspart 300 UNITS/3 ML PEN SC ×6 (09:00→18:30)
[2021-11-09] MEDS: Enoxaparin 40 MG/0.4 ML SYR SC (09:09)
[2021-11-09] MEDS: Benzonatate 200 MG CAP PO ×3 (09:10→19:21)
[2021-11-09] MEDS: Ascorbic Acid 500 MG TAB 1000 MG PO ×2 (09:10→19:21)
[2021-11-09] MEDS: guaiFENesin 600 MG TABCR PO ×2 (09:10→19:22)
[2021-11-09] MEDS: Lactobacillus Acidophilus CAP 1 CAP PO ×3 (09:10→19:22)
[2021-11-09] MEDS: Famotidine 20 MG TAB PO ×2 (09:10→19:22)
[2021-11-09] MEDS: Zinc Sulfate 220 MG TAB PO (09:10)
[2021-11-09] MEDS: Dexamethasone 10 MG/ML VIAL 6 MG IVP (09:10)
[2021-11-09] MEDS: Cholecalciferol (Vitamin D3) 1,000 UNIT TAB 2000 UNITS PO (09:10)
[2021-11-09] MEDS: Normal Saline Flush 10 ML SYR IVP ×2 (09:36→19:22)
[2021-11-09] MEDS: Insulin NPH-Human 300 UNITS/3 ML PEN 70 UNIT SC (09:48)
--- NOTE | 2021-11-09 10:46 | PDOC.CMPRO ---
- If Service Date Differs Date of service: 11/09/21 Time of Service: 10:46 Care Management Progress Note S/O: Shira was lying in bed when CM met with her. CM provided a patient assistance packet to her, after discussing the gap of time during this admission when she was not covered by her insurance, which went into effect on 11/04/21. CM called access to update her demographics, but they will need her insurance card or number in order to look it up. CM will attempt to obtain her insurance number. CM will continue to follow. A: Shira is a 51 year old female admitted to [facility] on 10/27/21 with Acute hypoxic respiratory failure, Covid 19. P: Shira continues to have high supplemental oxygen requirements, and is being treated and monitored in the ICU. Oxygen will be weaned as tolerated. She may require home supplemental O2 upon discharge, coordinated by RT. Once she is medically cleared, she will return home. No anticipated services at this time. She will follow up with her PCP and discharge plan of care. CM will continue to follow.
--- NOTE | 2021-11-09 12:47 | W.PM.PROGNOT ---
Date of Service Date of service: 11/09/21 Time of Service: 12:47 Assessment and Plan Assessment and plan (1) Acute respiratory failure with hypoxia: Status: Acute Assessment and plan: Secondary to Covid Pneumonia. Also concerned initially of possible superimposed bacterial pneumonia; completed course of antibiotics. D dimer and CRP now trending downward. Stopped daily monitoring. At time of my visit; high flow NC with FiO2 of 45. (2) COVID-19: Status: Acute Assessment and plan: Day of Baricitinib. On Dexamethasone 6mg IV daily; consider changing to po. Remdesivir bag 4 of 4. (3) Newly diagnosed diabetes: Status: Acute Assessment and plan: A1C 12.9. Patient presented in DKA was treated with insulin drip now currently on basal bolus insulin along with carb coverage. Currently on insulin resistant NovoLog corrective scale along with carb coverage at a ratio of 2:10. Continue with NPH coverage for her elevated sugars related to her Decadron. Continue Lantus; adjusting dosage as necessary. (4) Obesity (BMI 30-39.9): Assessment and plan: Needs outpatient follow up for lifestyle modifications TSH wnl. Does have evidence of hirsutism on my exam and could potentially have PCOS. (5) DVT prophylaxis: Status: Acute Assessment and plan: Pt previously on therapeutic dose of lovenox out of pulmonary embolism concerns. No CT chest performed. Now back on prophylactic lovenox dosing. D-dimer trending down. (6) Discharge planning issues: Status: Acute Assessment and plan: Full code ICU care Out of precautions. Subjective Subjective Patient reports: no new complaints, tolerating a regular diet, bowel movement and afebrile; denies nausea and vomiting Interval history since last seen: Using CPAP regularly. Exam Narrative Exam Narrative: Pleasant middle-aged obese white female lying on side. Lungs are clear to auscultation. Heart regular rate and rhythm Lower extremities without calf swelling or tenderness. Abdomen NT,ND Objective Last Vital Signs Temp 36 C L 11/09/21 08:00 Pulse 59 L 11/09/21 09:27 Resp 28 H 11/09/21 11:45 BP 92/55 L 11/09/21 09:27 Pulse Ox 97 11/09/21 11:45 Laboratory Results - last 24 hr 11/09/21 11/09/21 06:12 06:12 D-Dimer 1002 H C-Reactive Protein 0.14
--- NOTE | 2021-11-09 13:10 | PT.INIE ---
Date of service: 11/09/21 Time of Service: 13:10 PT Notes Visit Reasons: Acute Hyoxic Respiratory Failure,Covid 19 Physical Therapy Inpatient Initial Evaluation Date: 11/09/2021 Referring Doctor: Jarod Iglesias MD PT Orders: PT CONSULT: Eval/Treat Precautions: Fall. Standard. Activity as tolerated. Patient Profile/Admitting Diagnosis: Shira is a 51-year-old female patient with acute respiratory failure, newly diagnosed diabetes mellitus, and obesity referred for physical therapy for extended stay weakness. PMHX: All Active Problems (Updated 10/27/21 @ 18:01 by Aubrie Lewis MD) Discharge planning issues (Acute) DVT prophylaxis (Acute) Metabolic acidosis (Acute) Dehydration (Acute) Newly diagnosed diabetes (Acute) Acute respiratory failure with hypoxia (Acute) COVID-19 (Acute) Medical History (Updated 10/27/21 @ 18:01 by Aubrie Lewis MD) Obesity (BMI 30-39.9) Surgical History (Updated 08/20/18 @ 14:37 by [employer] [place]) section Social History/Home Situation: Patient lives in a private home independent with all ADLs prior to admission. Works as an insurance job titles. Equipment Owned/DME: None Subjective: Denies pain. Feels somewhat weak as this is her first time to walk since admission. Denies lightheadedness. Objective: General Observation: Supine in bed. 40 L/min on high flow rate oxygen. Telemetry monitoring in place. Mental Status: Alert and oriented as to person, place, time, and purpose. Able to pay attention, focus, and respond appropriately. Pain: Denies Vital Signs: Oxygen saturation lowest of 84% on 8 L but was able to resaturate to above 90% with increase of supplement to 10 L/minute. ROM: Right Upper Extremity: Shoulder Flexion WFL. Shoulder abduction WFL. Elbow flexion WFL. Wrist flexion WFL. Functional opening and closing of hand WFL. Left Upper Extremity: Shoulder Flexion WFL. Shoulder abduction WFL. Elbow flexion WFL. Wrist flexion WFL. Functional opening and closing of hand WFL. Right Lower Extremity: Hip flexion WFL. Hip abduction WFL. Knee flexion WFL. Ankle dorsiflexion WFL. Ankle plantarflexion WFL. Left Lower Extremity: Hip flexion WFL. Hip abduction WFL. Knee flexion WFL. Ankle dorsiflexion WFL. Ankle plantarflexion WFL. Strength: Right Upper Extremity: Shoulder flexors 4/5. Shoulder abductors 4/5. Elbow flexors 5/5. Elbow extensors 4/5. Front Office Assistant strong. Left Upper Extremity: Shoulder flexors 4/5. Shoulder abductors 4/5. Elbow flexors 5/5. Elbow extensors 4/5. Front Office Assistant strong. Right Lower Extremity: Hip flexors 4/5. Hip abductors 4/5. Knee flexors 5/5. Knee extensors 4/5. Ankle dorsiflexors 5/5. Ankle plantarflexors 5/5. Left Lower Extremity: Hip flexors 4/5. Hip abductors 4/5. Knee flexors 5/5. Knee extensors 4/5. Ankle dorsiflexors 5/5. Ankle plantarflexors 5/5. Bed Mobility/Transfers: Rolling independent Supine to sit independent Sit to supine independent Sit to stand supervision Stand to sit supervision Bed to reclining chair supervision Gait: Instructed patient with level surface ambulation of 150 feet requiring stand by assist. Jennifer decreased due to precarious saturation levels. Balance: Static Sitting: Normal Dynamic Sitting: Normal Static Standing: Fair Dynamic Standing: Fair Special Tests: Mobility Limitations Standardized Measure [facility]-PAC 6 clicks Basic Mobility Inpatient Short Form: Raw Score: 23 CMS Score: 11% deficit 30-second [id number]: x 6 with minimal shortness of breath and report of B feet feeling like jelly Informed Consent/Education: Patient was instructed in purpose of PT consult and plan of care. Agreeable to proceed with established PT POC to achieve personal goals. Assessment: Decreased ambulation tolerance and gait velocity due to fluctuating oxygen saturation levels. Does not need an assistive device to ambulate but needs to slow down to accommodate reduction in saturation levels. Patient will require skilled monitoring during gait oximetry to ensure gradual return to premorbid mobility ADL performance tolerance. Patient presents with clinical signs and symptoms consistent with current/admitting diagnoses that have resulted to mobility limitations, gait instability, generalized weakness, and overall ADL decline as demonstrated by the following impairment level findings: 1. Impaired standing balance 2. Impaired activity tolerance 3. Shortness of breath Impairments are contributing to the following functional limitations: 1. Increased completion time for mobility ADL performance 2. Increased risk for falls 3. Difficulty with managing steps alone safely Patient is assessed as a 04274 moderate complexity based on the following: History: 51-year-old female with past medical history as indicated above Examination: Demonstrable impairment in strength, balance, and mobility level with underlying impairments and functional limitations as exhibited above as well as deficit score of 11% utilizing the [facility] Mobility Inpatient Short Form Presentation: Evolving Decision Makin moderate complexity Goals: Goals X1 week 1. Supine-Sit independent 2. Sit-Supine independent 3. Sit-Stand independent 4. Stand-Sit independent with no AD 5. Bed-Chair independent with no AD 6. Chair-Bed independent with no AD 7. Independent gait on level surface with use of no AD for at least 500 feet without report of pain nor dyspnea 8. Independent stair negotiation while holding onto no rails for at least 5 steps without report of pain nor dyspnea 9. Independent with home exercise program 10. Good static and dynamic standing balance/tolerance Plan of Care/Treatment Plan: 1-2x/day, 7 days/week x 1 week. Plan of care has been reviewed with the [facility] providing the service under Physical Therapy direction. Initiate Physical Therapy intervention for pain management as needed, strengthening, bed mobility, transfers, gait, stairs, balance training, and use of assistive device. DISCHARGE RECOMMENDATIONS: [] Home with no services [] [X] Home with services. Patient will benefit from home health PT services in order to progress mobility level using least restrictive assistive ambulatory device, assess home safety, identify additional equipment needs, and establish a functional maintenance program that will increase ability of patient to remain at home. [] Home with outpatient PT [] [] SNF for continued rehabilitation [] [] [facility] [] [] SNF versus LTC based on ability to participate and progress [] TREATMENT CODE/TIME: 49950 x 28 minutes beginning at 13:10 PM. Thank you for the opportunity to participate in the care of this patient. Sara Collado PT, DPT, CLT [facility] [place], [place]
[2021-11-09] MEDS: Atorvastatin 40 MG TAB PO (19:22)
[2021-11-09] MEDS: Insulin Glargine 300 UNITS/3 ML PEN 25 UNITS SC (22:05)
[2021-11-09] MEDS: Melatonin 3 MG TAB PO (22:05)
[2021-11-09] MEDS: LORazepam 1 MG TAB PO (22:43)
[2021-11-10] VITALS (12 sets, daily range): BP systolic 92–112; BP diastolic 48–64; PULSE 50–84; RESP 14–24; TEMP 31–36.9; O2SAT 93–98
--- NOTE | 2021-11-10 06:45 | NUR.NOTE ---
Nursing Note: Pt admitted to floor from ICU. This nurse settled Pt in room and took VS. Pt does not appear SOB at this time and is on high flow O2. Alert and able to make needs known to staff.
[2021-11-10] MEDS: Ipratropium/Albuterol 4 GM 120 PUFF INH IH ×4 (08:13→19:36)
[2021-11-10] MEDS: Ascorbic Acid 500 MG TAB 1000 MG PO ×2 (08:51→19:34)
[2021-11-10] MEDS: guaiFENesin 600 MG TABCR PO ×2 (08:51→19:34)
[2021-11-10] MEDS: Cholecalciferol (Vitamin D3) 1,000 UNIT TAB 2000 UNITS PO (08:51)
[2021-11-10] MEDS: Lactobacillus Acidophilus CAP 1 CAP PO ×3 (08:52→19:35)
[2021-11-10] MEDS: Zinc Sulfate 220 MG TAB PO (08:53)
[2021-11-10] MEDS: Benzonatate 200 MG CAP PO ×3 (08:53→19:34)
[2021-11-10] MEDS: Famotidine 20 MG TAB PO ×2 (08:53→19:34)
[2021-11-10] MEDS: Dexamethasone 10 MG/ML VIAL 6 MG IVP (08:53)
[2021-11-10] MEDS: Enoxaparin 40 MG/0.4 ML SYR SC (08:53)
[2021-11-10] MEDS: Normal Saline Flush 10 ML SYR IVP ×2 (08:54→19:31)
[2021-11-10] MEDS: Insulin Aspart 300 UNITS/3 ML PEN SC ×6 (09:10→21:50)
--- NOTE | 2021-11-10 12:09 | W.PM.PROGNOT ---
Date of Service Date of service: 11/10/21 Time of Service: 12:10 Assessment and Plan Assessment and plan (1) Acute respiratory failure with hypoxia: Status: Acute Assessment and plan: Secondary to Covid Pneumonia. Also concerned initially of possible superimposed bacterial pneumonia; completed course of antibiotics. D dimer and CRP trended downward. Stopped daily monitoring. At time of my visit; high flow NC with FiO2 of 35. (2) COVID-19: Status: Acute Assessment and plan: Day 14 of Baricitinib. On Dexamethasone 6mg IV daily; consider changing to po. Remdesivir completed. (3) Newly diagnosed diabetes: Status: Acute Assessment and plan: A1C 12.9. Patient presented in DKA was treated with insulin drip now currently on basal bolus insulin along with carb coverage. Currently on insulin resistant NovoLog corrective scale along with carb coverage at a ratio of 2:10. Continue with NPH coverage for her elevated sugars related to her Decadron. Continue Lantus; adjusting dosage as necessary. Held NPH today; will monitor and restart if necessary. (4) Obesity (BMI 30-39.9): Assessment and plan: Needs outpatient follow up for lifestyle modifications TSH wnl. Does have evidence of hirsutism on my exam and could potentially have PCOS. (5) DVT prophylaxis: Status: Acute Assessment and plan: Pt previously on therapeutic dose of lovenox out of pulmonary embolism concerns. No CT chest performed. Now back on prophylactic lovenox dosing. D-dimer trending down. (6) Discharge planning issues: Status: Acute Assessment and plan: Full Code. Now on med-surg unit. Subjective Subjective Patient reports: no new complaints, feels better, tolerating a regular diet and afebrile; denies nausea and vomiting Interval history since last seen: Took shower today on 15L non-rebreather and tolerated this well. Exam Narrative Exam Narrative: Pleasant, NAD. Conversant. Lungs are clear to auscultation. Heart regular rate and rhythm Lower extremities without calf swelling or tenderness. Abdomen NT,ND Objective Last Vital Signs Temp 35.5 C L 11/10/21 06:48 Pulse 84 11/10/21 06:48 Resp 14 11/10/21 06:48 BP 106/64 11/10/21 06:48 Pulse Ox 93 11/10/21 06:48
--- NOTE | 2021-11-10 15:37 | PT.INTREAT ---
Date of service: 11/10/21 Time of Service: 11:13 PT Notes Visit Reasons: Acute Hyoxic Respiratory Failure,Covid 19 Inpatient Physical Therapy Treatment Note [facility] Date: 11/10/2021 PRECAUTIONS: Activity as tolerated SUBJECTIVE: Shira is pleasant and eager to participate in PT. She states that she is willing to do anything she needs to so she can go home. OBJECTIVE: PAIN: No c/o pain BED MOBILITY/TRANSFERS Sit-supine: I Supine-sit: I Sit-stand: I Stand-sit: I Bed-chair: I Chair-bed: I GAIT Assistive Device: No AD Weight bearing: Full Assist: I Distance: 200' in a.m.; 450' in p.m. Deviation: Standing rest x3 in a.m.; standing rest x2 in p.m.; no c/o SOB VITALS: Afternoon session completed in collaboration with RT, please see their note for specific vital sign details. 86-88% on 2L-8L O2 via NC with oximizer component with gait training. ASSESSMENT: Patient tolerated session well, without complaint. She demonstrates independence with all bed mobility, transfers, and ambulation at this time. PLAN: Will continue to work with Shira on improving activity tolerance and progress gait distance for continued progression toward baseline level of function. TREATMENT CODE/TIME: Session 1: 24 minutes; 98835 x2 (11:13) Session 2: 26 minutes; 47583 x2 (14:14)
--- NOTE | 2021-11-10 16:11 | PDOC.CMPRO ---
- If Service Date Differs Date of service: 11/10/21 Time of Service: 16:11 Care Management Progress Note S/O: Shira has been moved out of the ICU and her isolation has been discontinued. She was sitting up when CM met with her and was smiling and pleasant in interaction. Shira stated that she is feeling much better. She had ambulated with PT and her nurse earlier and also took a shower. She appeared to tolerate both well. A: Shira is a 51 year old female admitted to [facility] on 10/27/21 with Acute hypoxic respiratory failure, Covid 19. P: Shira has been moved out of the ICU and her isolation has been discontinued after testing negative for Covid. Her Oxygen will be weaned as tolerated. She may require home supplemental O2 upon discharge, coordinated by RT. Once she is medically cleared, she will return home. No anticipated services at this time. She will follow up with her PCP and discharge plan of care. CM will continue to follow.
[2021-11-10] MEDS: Atorvastatin 40 MG TAB PO (19:33)
[2021-11-10] MEDS: Melatonin 3 MG TAB PO (21:48)
[2021-11-10] MEDS: LORazepam 1 MG TAB PO (21:48)
[2021-11-10] MEDS: Insulin Glargine 300 UNITS/3 ML PEN 25 UNITS SC (21:49)
[2021-11-11] VITALS (7 sets, daily range): BP systolic 91–117; BP diastolic 56–78; PULSE 64–100; RESP 16–20; TEMP 31–37; O2SAT 92–99
--- NOTE | 2021-11-11 02:05 | NUR.NOTE ---
Pt sleeping on right side resting comfortably Nursing Note:
[2021-11-11] MEDS: Enoxaparin 40 MG/0.4 ML SYR SC (09:25)
[2021-11-11] MEDS: Benzonatate 200 MG CAP PO ×3 (09:26→20:40)
[2021-11-11] MEDS: Zinc Sulfate 220 MG TAB PO (09:26)
[2021-11-11] MEDS: Lactobacillus Acidophilus CAP 1 CAP PO ×3 (09:26→20:40)
[2021-11-11] MEDS: Normal Saline Flush 10 ML SYR IVP ×3 (09:26→20:40)
[2021-11-11] MEDS: Cholecalciferol (Vitamin D3) 1,000 UNIT TAB 2000 UNITS PO (09:26)
[2021-11-11] MEDS: guaiFENesin 600 MG TABCR PO ×2 (09:27→20:39)
[2021-11-11] MEDS: Ascorbic Acid 500 MG TAB 1000 MG PO ×2 (09:27→20:40)
[2021-11-11] MEDS: Dexamethasone 10 MG/ML VIAL 6 MG IVP (09:27)
[2021-11-11] MEDS: Ipratropium/Albuterol 4 GM 120 PUFF INH IH ×4 (09:27→20:49)
[2021-11-11] MEDS: Famotidine 20 MG TAB PO ×2 (09:27→20:40)
--- NOTE | 2021-11-11 11:25 | PT.INTREAT ---
Date of service: 11/11/21 Time of Service: 10:55 PT Notes Visit Reasons: Acute Hyoxic Respiratory Failure,Covid 19 Inpatient Physical Therapy Treatment Note [facility] Date: 11/11/2021 PRECAUTIONS: Activity as tolerated SUBJECTIVE: Indicated she feels good today. Thinks the oxygen reading equipment just does not like her. OBJECTIVE: PAIN: No complaints of pain BED MOBILITY/TRANSFERS Rolling L/R: I Supine-sit: I Sit-supine: I Sit-stand: I Stand-sit: I GAIT Assistive Device: None Weight bearing: Full Assist: SBA Distance: 200ft, with 2 standing rest not due to SOB but due to low O2 readings with monitor attached to left ear lobe. VITALS: Began walk with O2 at 88% with 3L and increased O2 supplement to 8L attempting to keep readings at 88% or above, but unable to achieve this. Readings stayed in the low 80 range. Nurse Wendy was monitoring O2 level with ambulation. Patient was placed on high flow system when back in room and able to again get into the mid to high 80's. She was asked to transition to prone to improve O2 consumption. ASSESSMENT: Appeared very comfortable with ambulation despite low O2 readings. PLAN: Continue to focus on improved ambulation for ADL function, attempting to keep O2 readings at or above 88% TREATMENT CODE/TIME: [id number], 10:55 to 11:15 (20')
[2021-11-11] MEDS: Insulin Aspart 300 UNITS/3 ML PEN SC ×5 (12:06→22:25)
--- NOTE | 2021-11-11 16:35 | W.PM.PROGNOT ---
Date of Service Date of service: 11/11/21 Time of Service: 16:35 Assessment and Plan Assessment and plan (1) Acute respiratory failure with hypoxia: Status: Acute Assessment and plan: Multifactorial, due to COVID-19 as well as fluid overload. Resume lasix, monitoring oxygenation. Abx now completed. Finished remdesivir and baricitinib. Continue dexamethasone. Continue CPAP/HHHFNC. The patient has been proning. Continue to encourage sitting up/proning/IS/acapella. Wean O2 as tolerated. (2) COVID-19: Status: Acute Assessment and plan: As above (3) DKA (diabetic ketoacidosis): Status: Resolved Assessment and plan: Continue current doses of basal bolus insulin. (4) Newly diagnosed diabetes: Status: Acute Assessment and plan: A1C 12.9. As above DM educator consulted. (5) Metabolic acidosis: Status: Resolved Assessment and plan: As above (6) Dehydration: Status: Resolved Assessment and plan: Resume diuresis. (7) Obesity (BMI 30-39.9): Assessment and plan: Needs outpatient follow up for lifestyle modifications TSH wnl. Will need outpatient sleep study to r/o sleep apnea. (8) DVT prophylaxis: Status: Acute Assessment and plan: SC enoxaparin (9) Discharge planning issues: Status: Acute Assessment and plan: Full code Continues to require hospitalization. We hope for discharge home in the next 48 hrs. Subjective Subjective Interval history since last seen: Ms Humphries states she is feeling better. She did notice her legs are puffy today. Denies dizziness, chest pain, shortness of breath, nausea. On humidified heated high flow NC at 35 L 52% FiO2. Exam Narrative Exam Narrative: General: Pleasant obese female, A&Ox3, sitting up at the side of the bed, looks well, no dyspnea/tachypnea/cyanosis, able to complete sentences. On humidified heated high flow NC. HEENT: EOMI, MMM Heart: RRR, no m/r/g Lungs: Crackles at L base, CTA on the R Abdomen: soft, nontender, nondistended Extremities:+1 edema BLE's Objective Last Vital Signs Temp 36.2 C L 11/11/21 15:48 Pulse 96 H 11/11/21 15:48 Resp 18 11/11/21 15:48 BP 111/78 11/11/21 15:48 Pulse Ox 94 11/11/21 15:48
[2021-11-11] MEDS: Furosemide 20 MG/2 ML VIAL IVP (17:35)
[2021-11-11] MEDS: Atorvastatin 40 MG TAB PO (20:40)
[2021-11-11] MEDS: Insulin Glargine 300 UNITS/3 ML PEN 25 UNITS SC (22:24)
[2021-11-12 03:24] VITALS: BP 114/70; PULSE 66; RESP 18; TEMP 36.3; O2SAT 98
[2021-11-12 06:24] VITALS: BP 96/66; PULSE 84; RESP 17; TEMP 37; O2SAT 93
[2021-11-12 07:00] LABS: Absolute Basophil Count 0.02 10^3/uL (0.0-0.2); Absolute Eosinophil Count 0.02 10^3/uL (0.0-0.7); Absolute Lymphocyte Count 2.76 10^3/uL (1.2-3.4); Absolute Monocyte Count 0.86 10^3/uL (0.1-0.8); Basophils % 0.2; Eosinophils % 0.2; HCT 35.6 % (36.0-46.0); HGB 11.5 g/dL (11.2-15.7); Immature Grans % 1.7; Lymphocytes % 22.9; MCH 27.8 pg (27.0-33.0); MCHC 32.3 % (32.0-36.0); MCV 86.2 fL (80-95); MPV 10.1 fL (8.0-11.0); Monocytes % 7.1; Neutrophils % 67.9; Nucleated RBC 0 %; Platelet Count 277 10^3/uL (130-400); RBC 4.13 10^6/uL (3.93-5.22); RDW 12.9 % (11.7-14.6); RDW-SD 39.9 fL; WBC 12.06 10^3/uL (4.4-10.8)
[2021-11-12 07:15] LABS: Anion Gap 7.4 mmol/L (3-11); BUN 27 mg/dL (7-18); CO2 28.6 mmol/L (21.0-32.0); CREATININE 0.7 mg/dL (0.55-1.02); Calcium 8.4 mg/dL (8.5-10.1); Chloride 104 mmol/L (98-107); Glucose 130 mg/dL (74-106); Magnesium 2.2 mg/dL (1.8-2.4); Potassium 3.8 mmol/L (3.5-5.1); Sodium 140 mmol/L (136-145)
[2021-11-12 07:17] LABS: C-Reactive Protein < 0.05 mg/dL (0.0-0.3)
[2021-11-12 07:27] LABS: Absolute Neutrophil Count 8.19 10^3/uL (1.2-6.7)
[2021-11-12] MEDS: Ipratropium/Albuterol 4 GM 120 PUFF INH IH ×4 (09:00→19:55)
[2021-11-12] MEDS: Cholecalciferol (Vitamin D3) 1,000 UNIT TAB 2000 UNITS PO (09:27)
[2021-11-12] MEDS: Benzonatate 200 MG CAP PO ×2 (09:27→19:57)
[2021-11-12] MEDS: Ascorbic Acid 500 MG TAB 1000 MG PO ×2 (09:27→19:56)
[2021-11-12] MEDS: guaiFENesin 600 MG TABCR PO ×2 (09:27→19:57)
[2021-11-12] MEDS: Lactobacillus Acidophilus CAP 1 CAP PO ×2 (09:27→19:57)
[2021-11-12] MEDS: Furosemide 20 MG/2 ML VIAL IVP (09:28)
[2021-11-12] MEDS: Dexamethasone 10 MG/ML VIAL 6 MG IVP (09:28)
[2021-11-12] MEDS: Normal Saline Flush 10 ML SYR IVP ×2 (09:28→19:55)
[2021-11-12] MEDS: Famotidine 20 MG TAB PO ×2 (09:28→19:57)
[2021-11-12] MEDS: Enoxaparin 40 MG/0.4 ML SYR SC (09:29)
[2021-11-12] MEDS: Insulin Aspart 300 UNITS/3 ML PEN SC ×6 (09:29→21:34)
[2021-11-12] MEDS: Insulin NPH-Human 300 UNITS/3 ML PEN 75 UNIT SC (09:31)
--- NOTE | 2021-11-12 11:55 | PT.INTREAT ---
Date of service: 11/12/21 Time of Service: 11:00 PT Notes Visit Reasons: Acute Hyoxic Respiratory Failure,Covid 19 Inpatient Physical Therapy Treatment Note [facility] Date: 11/12/2021 PRECAUTIONS:Activity as tolerated SUBJECTIVE: Stated she is hoping to go home soon. Feels a little more tired today, rough time with C-pap last night. Feels good when she is walking despite low O2 readings. No complaints of SOB with ambulation at a slow pace today. OBJECTIVE: PAIN: No complaints of pain offered. BED MOBILITY/TRANSFERS Rolling L/R: I Supine-sit: I Sit-supine: I Sit-stand: I Stand-sit: I GAIT Assistive Device: No assistive device Weight bearing: Full Assist: I Distance: 200ft, without need to stop due to SOB VITALS: Did have to keep O2 supplement, NC with oximizer component, at 10 to 15L today to maintain O2 at 90%, despite no complaints or signs of SOB with ambulation and once back in room sitting on edge of bed for 10 minutes. Nurse Huffman was advised of this and highflow supplement was reapplied. ASSESSMENT: Tolerated ambulation without complaint but continuing to have to have O2 supplement increased to maintain goal of 90% PLAN: Continue to work on improving activity tolerance and progress gait distance for continued progression toward baseline level of function. TREATMENT CODE/TIME: [id number], 11:00 to 11:25 (25')
[2021-11-12 14:56] VITALS: BP 100/64; PULSE 80; RESP 16; TEMP 36.7; O2SAT 94
--- NOTE | 2021-11-12 15:00 | W.PM.PROGNOT ---
Date of Service Date of service: 11/12/21 Time of Service: 15:00 Assessment and Plan Assessment and plan (1) Acute respiratory failure with hypoxia: Status: Acute Assessment and plan: Multifactorial, due to COVID-19 as well as fluid overload. Much improved. Continue lasix, monitoring oxygenation. Abx now completed. Finished remdesivir and baricitinib. Continue dexamethasone. Continue CPAP at night. The patient has been proning. Continue to encourage sitting up/proning/IS/acapella. Check exercise oximetry in am. (2) COVID-19: Status: Acute Assessment and plan: As above Precautions discontinued as repeat PCR was negative. (3) DKA (diabetic ketoacidosis): Status: Resolved Assessment and plan: Continue current doses of basal bolus insulin. (4) Newly diagnosed diabetes: Status: Acute Assessment and plan: A1C 12.9. As above DM educator consulted and will need insulin training prior to d/c. (5) Metabolic acidosis: Status: Resolved Assessment and plan: As above (6) Dehydration: Status: Resolved Assessment and plan: Continue diuresis. (7) Obesity (BMI 30-39.9): Assessment and plan: Needs outpatient follow up for lifestyle modifications TSH wnl. Will need outpatient sleep study to r/o sleep apnea. (8) DVT prophylaxis: Status: Acute Assessment and plan: SC enoxaparin (9) Discharge planning issues: Status: Acute Assessment and plan: Full code Anticipate discharge home tomorrow. Subjective Subjective Interval history since last seen: Ms Humphries is on 2L of O2 by TN. She feels better. She slept on CPAP and proned. Denies dizziness, chest pain, shortness of breath, nausea. Would like to try to go home tomorrow. Exam Narrative Exam Narrative: General: Pleasant obese female, A&Ox3, laying on her R side in bed with her visiting, in good spirits HEENT: EOMI, MMM Heart: RRR, no m/r/g Lungs: CTAB Abdomen: soft, nontender, nondistended Extremities: trace edema BLE's, improved from yesterday Objective Last Vital Signs Temp 36.7 C 11/12/21 14:56 Pulse 80 11/12/21 14:56 Resp 16 11/12/21 14:56 BP 100/64 11/12/21 14:56 Pulse Ox 94 11/12/21 14:56 Laboratory Results - last 24 hr 11/12/21 11/12/21 06:15 06:15 WBC 12.06 H RBC 4.13 Hgb 11.5 Hct 35.6 L MCV 86.2 MCH 27.8 MCHC 32.3 RDW 12.9 Plt Count 277 D MPV 10.1 Immature Gran % 1.7 Neutrophils % 67.9 Lymphocytes % 22.9 Monocytes % 7.1 Eosinophils % 0.2 Basophils % 0.2 Nucleated RBC % 0 Absolute Neutrophils 8.19 H Absolute Lymphocytes 2.76 Absolute Monocytes 0.86 H Absolute Eosinophils 0.02 Absolute Basophils 0.02 Sodium 140 Potassium 3.8 Chloride 104 Carbon Dioxide 28.6 Anion Gap 7.4 BUN 27 H Creatinine 0.7 Estimated GFR/1.73 m2 >= 60.00 Glucose 130 H Calcium 8.4 L Magnesium 2.2 C-Reactive Protein < 0.05
[2021-11-12 19:41] VITALS: BP 112/65; PULSE 73; RESP 18; TEMP 36.7; O2SAT 95
[2021-11-12] MEDS: Atorvastatin 40 MG TAB PO (19:56)
[2021-11-12] MEDS: Melatonin 3 MG TAB PO (21:33)
[2021-11-12] MEDS: LORazepam 1 MG TAB PO (21:34)
[2021-11-12] MEDS: Insulin Glargine 300 UNITS/3 ML PEN 25 UNITS SC (21:35)
[2021-11-12 23:19] VITALS: BP 106/63; PULSE 86; RESP 17; TEMP 36.7; O2SAT 96
[2021-11-13 03:36] VITALS: BP 114/74; PULSE 74; RESP 19; TEMP 36.3; O2SAT 97
[2021-11-13 07:00] VITALS: O2SAT 92
[2021-11-13 07:03] VITALS: PULSE 107; PULSE 52; PULSE 66; PULSE 69; RESP 17; RESP 18; RESP 21; O2SAT 87; O2SAT 90; O2SAT 91; O2SAT 93
[2021-11-13 07:17] LABS: Abs Immature Grans 0.19 10^3/uL (0.0-0.06); Absolute Basophil Count 0.02 10^3/uL (0.0-0.2); Absolute Monocyte Count 0.88 10^3/uL (0.1-0.8); Absolute Neutrophil Count 7.93 10^3/uL (1.2-6.7); Basophils % 0.2; Eosinophils % 0.3; HCT 34.9 % (36.0-46.0); HGB 11.4 g/dL (11.2-15.7); Immature Grans % 1.6; MCH 28.3 pg (27.0-33.0); MCHC 32.7 % (32.0-36.0); MCV 86.6 fL (80-95); MPV 9.8 fL (8.0-11.0); Monocytes % 7.5; Neutrophils % 67.4; Nucleated RBC 0 %; Platelet Count 232 10^3/uL (130-400); RBC 4.03 10^6/uL (3.93-5.22); RDW 13.2 % (11.7-14.6); RDW-SD 40.6 fL; WBC 11.76 10^3/uL (4.4-10.8)
[2021-11-13 07:20] LABS: Absolute Eosinophil Count 0.04 10^3/uL (0.0-0.7)
[2021-11-13 07:41] LABS: Anion Gap 5.4 mmol/L (3-11); BUN 24 mg/dL (7-18); CO2 29.6 mmol/L (21.0-32.0); CREATININE 0.7 mg/dL (0.55-1.02); Calcium 8.3 mg/dL (8.5-10.1); Chloride 106 mmol/L (98-107); Glucose 131 mg/dL (74-106); Magnesium 2.3 mg/dL (1.8-2.4); Potassium 3.8 mmol/L (3.5-5.1); Sodium 141 mmol/L (136-145)
[2021-11-13 07:42] LABS: C-Reactive Protein < 0.05 mg/dL (0.0-0.3)
[2021-11-13 08:02] LABS: D-Dimer 663 ng/mlFEU (<500)
[2021-11-13] MEDS: Dexamethasone 10 MG/ML VIAL 6 MG IVP (08:20)
[2021-11-13] MEDS: Furosemide 20 MG/2 ML VIAL IVP (08:20)
[2021-11-13] MEDS: Insulin NPH-Human 300 UNITS/3 ML PEN 75 UNIT SC (08:21)
[2021-11-13] MEDS: Enoxaparin 40 MG/0.4 ML SYR SC (08:21)
[2021-11-13] MEDS: Ipratropium/Albuterol 4 GM 120 PUFF INH IH (08:21)
[2021-11-13] MEDS: Insulin Aspart 300 UNITS/3 ML PEN SC ×3 (08:23→13:06)
[2021-11-13] MEDS: guaiFENesin 600 MG TABCR PO (08:24)
[2021-11-13] MEDS: Normal Saline Flush 10 ML SYR IVP (08:24)
[2021-11-13] MEDS: Lactobacillus Acidophilus CAP 1 CAP PO (08:24)
[2021-11-13] MEDS: Ascorbic Acid 500 MG TAB 1000 MG PO (08:24)
[2021-11-13] MEDS: Famotidine 20 MG TAB PO (08:24)
[2021-11-13] MEDS: Cholecalciferol (Vitamin D3) 1,000 UNIT TAB 2000 UNITS PO (08:25)
[2021-11-13 08:26] LABS: Ferritin 197 ng/mL (8-252)
--- NOTE | 2021-11-13 09:37 | W.PM.DS.N ---
Date of service: 11/13/21 Time of Service: 09:38 DS: Diagnosis Discharge Diagnosis (1) COVID-19: Status: Acute (2) Acute respiratory failure with hypoxia: Status: Acute (3) DKA (diabetic ketoacidosis): Status: Resolved (4) Newly diagnosed diabetes: Status: Acute (5) Metabolic acidosis: Status: Resolved (6) Dehydration: Status: Resolved (7) Obesity (BMI 30-39.9): (8) Hirsutism: Status: Acute Discharge Plan Disposition Patient Disposition: HOME Condition: Improving Discharge Details Reason For Visit: Acute Hyoxic Respiratory Failure,Covid 19 Admit Date/Time: 10/27/21 15:55 Admit Provider: Aubrie Lewis Attending Provider: Aubrie Lewis Primary Care Provider: Suraj Laboy Hospital Course Hospital Course: Ms Humphries is a 51 year old female with no known PMHx prior to this admission except for obesity with BMI of 36 kg/m2 and who was not previously vaccinated against COVID-19, who was admitted to [facility] ICU on 10/27/21 with acute hypoxic respiratory failure due to pneumonia caused by COVID-19 as well as DKA in setting of new diagnosis of diabetes. The patient was saturating 67% on RA on presentation and required CPAP with FiO2 of 60% and pressure of 12 to saturate >88%. PE was ruled out with a negative CTA. She was treated with insulin infusion, cautious IV hydration, dexamethasone, remdesivir, and baricitinib. There was also evidence of superimposed bacterial infection as per elevated procalcitonin, for which she received empiric ceftriaxone and doxycycline. As her DKA started to resolve, she was initiated on long acting insulin and eventually transitioned to basal bolus insulin with NPH coverage for the steroid-induced hyperglycemia. Her oxygen requirements fluctuated, and we found that she benefited from introduction of furosemide to her regimen with improvement of her oxygenation. Her Echo showed LVEF of 55-60%, no valvular disease, and PA pressures were unable to be assessed due to only trace tricuspid regurgitation. The patient's oxygenation did finally improve to the point of being able to be transferred out of the ICU on 11/09/21. Today, she is requiring room air at rest but does need 4L of O2 with oximizer on ambulation to saturate >88% (90%, specifically). She is being discharged home with a steroid taper: prednisone 40 mg Po daily x 5 days, then 30 mg PO daily x 3 days, then 20 mg PO daily x 3 days, then 10 mg PO daily x 3 days. Due to this, her insulin prescriptions, as discussed with [facility] endocrinology on discharge, will be as follows: Lantus 25 units SC HS Insulin aspart: 1 unit per 5 grams of carbs consumed in addition to corrective scale of 3 units per every 40 points over 140. Insulin NPH: 75 units qam while on prednisone 40 mg (x 5 days), then 56 units while on prednisone 30 mg (x5 days), 37 units while on prednisone 20 mg (x5 days), and 18 units while on prednisone 10 mg. After finishing her steroid taper, the patient should stop NPH. She is being discharged home with a continuous glucose monitor ([employer] G6). Follow up referrals are being set up with a new PCP, pulmonology (Dr Somers), and [facility] endocrinology. She would also benefit from a sleep study on discharge. She would benefit from follow up with diabetes education as well. Care for patient as well as completion of her discharge summary on day of discharge took 120 minutes. Home Meds and New Rx's Prescriptions: New albuterol sulfate [Ventolin HFA] 90 mcg/actuation Hfa Aerosol Inhaler 2 puff inhalation Q4H PRN PRNQty: 8.5 RF: 0 benzonatate 200 mg Capsule 200 mg PO TID PRN PRNQty: 30 RF: 0 famotidine 20 mg Tablet 20 mg PO BID Qty: 60 RF: 0 ascorbic acid (vitamin C) [Vitamin C] 500 mg Tablet 1,000 mg PO BID Qty: 40 RF: 0 cholecalciferol (vitamin D3) 25 mcg (1,000 unit) Tablet 2,000 units PO DAILY Qty: 20 RF: 0 guaifenesin [Mucinex] 600 mg Tablet Extended Release 12hr 600 mg PO BID PRN PRN (Reason: cough) Qty: 20 RF: 0 melatonin 3 mg Tablet 3 mg PO HS Qty: 30 RF: 0 acidophilus-pectin, citrus 25 million cell -100 mg Tablet 1 cap PO TID Qty: 90 RF: 0 Metamucil Sugar-Free (aspart) 3.4 gram/5.8 gram Powder 1 ea PO BID Qty: 0 RF: 0 prednisone 10 mg tablet See Rx Instructions .ROUTE .COMPLEX Qty: 38 RF: 0 furosemide 20 mg tablet 20 mg PO DAILY Qty: 3 RF: 0 Lantus Solostar U-100 Insulin 100 unit/mL (3 mL) Insulin Pen 25 unit subcut HS Qty: 15 RF: 0 insulin aspart U-100 [Novolog Flexpen U-100 Insulin] 100 unit/mL (3 mL) Insulin Pen See Rx Instructions .ROUTE .COMPLEX Qty: 15 RF: 0 Humulin N NPH Insulin KwikPen 100 unit/mL (3 mL) Insulin Pen See Rx Instructions .ROUTE .COMPLEX Qty: 15 RF: 0 (DME) lancets [BD Ultra-Fine II Lancets] 30 gauge misc See Rx Instructions .ROUTE .MEDSUPPLY Qty: 100 RF: 1 (DME) Dexcom G6 Sensor Device See Rx Instructions .ROUTE .MEDSUPPLY Qty: 3 RF: 0 (DME) blood sugar diagnostic Strip See Rx Instructions .ROUTE .MEDSUPPLY Qty: 100 RF: 0 (DME) blood-glucose meter Kit See Rx Instructions .ROUTE .MEDSUPPLY Qty: 1 RF: 0 (DME) pen needle, diabetic [CareTouch Pen Needle] 31 gauge x 1/4 needle See Rx Instructions .ROUTE .MEDSUPPLY Qty: 200 RF: 1 Discharge Instructions Instructions: Furosemide (By mouth), Prednisone (By mouth), Diabetic Ketoacidosis (DC), Hypoglycemia in a Person with Diabetes (DC), Type 2 Diabetes in Adults: New Diagnosis (DC), Insulin Pens (DC), Diabetes and Nutrition (DC), COVID-19 (Coronavirus Disease 2019) (DC) Additional Instructions: Insulin prescriptions: 1. Lantus 25 units under the skin AT NIGHT 2. With meals: Insulin aspart: 1 unit per 5 grams of carbs consumed in addition to corrective scale 3. Corrective scale Insulin aspart: take 3 units for every 40 points that your blood sugar is over 140. 4. Take insulin NPH while on prednisone taper only. Take 75 units in the morning while on prednisone 40 mg (x 5 days), then Take 56 units while on prednisone 30 mg (x5 days), then Take 37 units while on prednisone 20 mg (x5 days), and finally, Take 18 units while on prednisone 10 mg. After finishing steroid taper, stop NPH. Finish your steroid taper as prescribed. Return to the hospital if your oxygen saturation drops below 88% and stays there despite the 4L/oximizer therapy, if you feel worse, if you have a bleeding, chest pain, or worsening shortness of breath. Know signs and symptoms of hypoglycemia. Always have glucose tablets or another hypoglycemia intervention with you (janine pouch juices, for example). Follow up with PCP, pulmonology, endocrinology, diabetes education. A referral to a sleep clinic was sent, and you will be contacted for an appointment. Stand Alone Forms: Nursing Discharge Form Referrals: ENDOCRINOLOGY,[facility] [OTHER] - (Referral sent,Office will call you with appointment date and time.) [facility] [OTHER] - (Referral sent, office will call you with appointment date and time.) Elise Sahni [ NON-[facility] STAFF PHYSICIAN] - 11/23/21 2:55 pm Cris Smoers MD [ [facility] STAFF PHYSICIAN] - (Office will call you with appointment date and time.) Alessia Car [CEMENTER] - (Will contact you to set any future appointments.) Activity:: Activity as Tolerated Equipment/Supplies:: 4L oximizer ambulating Diet:: Carb Counting Discharge Orders Discharge Orders: Discharge Order (Routine); Ordered 11/13/21 Ordered By: Aubrie Lewis DS: Summary Time Spent with Patient providing and/or coordinating discharge services: Greater than 30 minutes Status at Discharge Functional status at discharge: independent ambulation Overall status at discharge: patient is progressing back to baseline Mental Status: mental status grossly normal Speech and Movement: speech and movement normal Mood: congruent mood Affect: normal affect Exam Narrative Exam Narrative: General: Pleasant obese female, A&Ox3, HEENT: EOMI, MMM Heart: RRR, no m/r/g Lungs: faint rales at B bases Abdomen: soft, nontender, nondistended Extremities: trace edema BLE's Psych Mental Status: mental status grossly normal Speech and Movement: speech and movement normal Mood: congruent mood Affect: normal affect DS: Data Vitals/I&O Vitals and I&O: Vital Signs Temperature 36.3 C L 11/13/21 03:36 Temperature Source Tympanic 11/13/21 03:36 Pulse 74 11/13/21 03:36 Pulse Rhythm Regular 11/13/21 04:00 Pulse 52 L 11/09/21 22:00 Respiratory Rate 19 11/13/21 03:36 Respiratory Effort 11/13/21 04:00 Respiratory Depth Normal 11/13/21 04:00 Respiratory Pattern Normal 11/13/21 04:00 Blood Pressure 114/74 11/13/21 03:36 Blood Pressure Mean 70 11/09/21 22:23 Blood Pressure Position Supine 11/09/21 08:00 Pulse Oximetry 92 11/13/21 07:00 Oxygen Delivery Method Room Air 11/13/21 07:00 Oxygen Flow Rate 0 11/13/21 07:00 Fraction of Inspired Oxygen (FIO2) 35 11/13/21 08:28 Pain Level 0 11/13/21 03:36 Comment 11/10/21 23:37 Intake & Output 11/12/21 11/12/21 11/13/21 11:59 23:59 11:59 Intake Total 500 / 1500 1000 / 1500 60 / 60 Output Total 700 / 700 Balance 500 / 800 300 / 800 60 / 60 Weight 91.7 kg 91.2 kg Intake: IV 60 / 60 60 / 60 Oral 500 / 1440 940 / 1440 Output: Urine 700 / 700 Other: Comment pt is up voiding independently. Stool Characteristics Soft Formed Voiding Methods Toilet Toilet Data Completed and Pending Completed studies during hospitalization [Text1]: CTA chest 10/27/21:1. No evidence of acute pulmonary emboli. No evidence of pulmonary infarction.No pleural effusions. 2. Extensive bilateral ground-glass infiltrates which are highly suspicious for viral Covid-19 pneumonia. 3. Hepatic steatosis incidentally noted. Echo 10/30/21: Normal left ventricular wall thickness and chamber size. Estimated ejection fraction is 55 to 60%. There are no segmental wall motion abnormalities Normal right ventricular size and systolic function Both atria are normal in size There is no structural or hemodynamically significant valvular disease Venous doppler BLEs 10/30/21: 1. No ultrasound evidence of DVT in either lower extremity. CXR 10/30/21: Extensive bilateral infiltrates. Suspicious for Covid-19 ammonia.Right PICC line distal tip requires oblique films to determine exact location. CXR 10/30/21 (#2): Extensive bilateral infiltrates are again noted. The distal tip of the PICC line is in the right atrium, as demonstrated on this oblique view.. CXR 10/30/21 (#3): Portable upright chest 1705 hours. PICC line noted on the right, the tip is not ideally visualized but probably lies near junction of SVC and right atrium. Note is again made of bilateral patchy and dense intrapulmonary infiltrates. CXR 11/02/21: No radiographic improvement in the bilateral infiltrates. CXR 11/04/21: Little if any interval change in multifocal infiltrates in comparison with yesterday's examination. Labs on day of discharge: Labs from last 24 hours 11/13/21 11/13/21 11/13/21 06:20 06:20 06:20 WBC 11.76 H RBC 4.03 Hgb 11.4 Hct 34.9 L MCV 86.6 MCH 28.3 MCHC 32.7 RDW 13.2 Plt Count 232 MPV 9.8 Immature Gran % 1.6 Neutrophils % 67.4 Lymphocytes % 23.0 Monocytes % 7.5 Eosinophils % 0.3 Basophils % 0.2 Nucleated RBC % 0 Absolute Neutrophils 7.93 H Absolute Lymphocytes 2.70 Absolute Monocytes 0.88 H Absolute Eosinophils 0.04 Absolute Basophils 0.02 D-Dimer 663 H Sodium 141 Potassium 3.8 Chloride 106 Carbon Dioxide 29.6 Anion Gap 5.4 BUN 24 H Creatinine 0.7 Estimated GFR/1.73 m2 >= 60.00 Glucose 131 H Calcium 8.3 L Magnesium 2.3 Ferritin 197 C-Reactive Protein < 0.05 PFSH All Active Problems (Updated 11/13/21 @ 12:05 by Aubrie Lewis MD) Hirsutism (Acute) Poor intravenous access (Acute) Discharge planning issues (Acute) DVT prophylaxis (Acute) Newly diagnosed diabetes (Acute) Acute respiratory failure with hypoxia (Acute) COVID-19 (Acute) Medical History (Updated 11/13/21 @ 12:05 by Aubrie Lewis MD) Obesity (BMI 30-39.9) Surgical History (Updated 08/20/18 @ 14:37 by [employer] [place]) section Social History (Updated 10/27/21 @ 18:28 by Aubrie Lewis MD) Smoking/Tobacco Use Status: Never Smoking risk assessment performed?: Yes Alcohol Intake: never Drug use: Never
[2021-11-13 11:09] VITALS: BP 105/64; PULSE 84; RESP 17; TEMP 36.6; O2SAT 92
--- NOTE | 2021-11-13 14:03 | W.DIABETESNO ---
Date of service: 11/13/21 Time of Service: 14:03 Diabetes Note Reason for Visit: diabetes education, newly diagnosied NOTE: Met with Shira at bedside to provide diabetes self management education and placing Dexcom 6 continuous glucose monitor (paired with iphone). Provided education on how to inject and calculate insulin doses. Prescribed 25 units lantus at bedtime, 1:5 ratio insulin to carbs at meals, 1:50 correction factor for blood sugars > 140 mg/dl. Will also be prescribed NPH insulin while on prednisone, to be tapered along wtih prednisone. Provided education on how to treat hypo and hyper glycemia and when to call PCP. Will follow up with phone tomorrow. Has outpatient appt. for data download on 11/23/21 at 1 pm. Provided education on Time Spent in Nutritional Counseling and Treatment: 20 minutes
[2021-11-13] MEDS: Bacitracin 1 PACKET TP (14:48)
--- NOTE | 2021-11-13 16:16 | PDOC.CMDIS ---
- If Service Date Differs Date of service: 11/13/21 Time of Service: 16:16 LACE Index Scoring Tool - Questions: Length of Stay (in days): 14 or more Acuity (Admit via E.D.?): Yes Comorbidities: Diabetes w/o Complication E.D. Visits: 1 - Answers: Total Score: 12 Risk of Readmission: High Risk Care Management Discharge Reason for Hospitalization: Acute Hypoxic Respiratory Failure, Covid 19 Discharge Plan: Shira returned home today with no new services. She has new home O2, and medications for her newly diagnosed diabetes. RAFFY discussed insurance with her, as Shira shared that her commercial insurance will not be in effect until 12/06/21. CM faxed and emailed a referral to Keisha, who responded and reached out to Shira to determine if she would qualify for [facility] for access to care. RAFFY explained that this could delay discharge, as it could take 24-48 hours to have a determination from [facility]. She stated that she would pay out of pocket for her O2 and medications, hoping to be reimbursed by her insurance, once it is active. CM asked tobacco prevention health educator to review options for medications at [facility], as her insulin will have high out of pocket costs. She is agreeable to pay out of pocket until her insurance is in effect. Her will drive her home via private vehicle. She will follow up with her PCP and discharge plan of care. She is happy to be going home. Patient/Family Education Needs: Review discharge instructions regarding activity levels and medications, discussion of self care needs including ask me three. Services Needed at Discharge: Oxygen Therapy ([facility] )
== END 2021-11-13 15:38 | disposition home or self-care (01) | DRG 177 ==
LOC: ER 17:16 → ICU 17:40 → MS 11-10 06:04
PROVIDERS: Family Medicine; Internal Medicine; Student in an Organized Health Care Education/Training Program; Admitting Provider Internal Medicine; Emergency Provider Physician Assistant; Visit Provider Internal Medicine
DX: U07.1 COVID-19 (principal); E11.10 Type 2 diabetes mellitus with ketoacidosis without coma; J96.01 Acute respiratory failure with hypoxia; J12.82 Pneumonia due to coronavirus disease 2019; J15.9 Unspecified bacterial pneumonia; I26.99 Other pulmonary embolism without acute cor pulmonale; E86.0 Dehydration; E66.9 Obesity, unspecified; Z68.35 Body mass index [BMI] 35.0-35.9, adult; E87.70 Fluid overload, unspecified; E28.2 Polycystic ovarian syndrome
CPT/HCPCS: 36415; 36569; 36592; 71045; 71275; 80048; 80053; 80061; 80076; 82306; 82550; 82805; 84145; 87040; 87449; 87493; 87635; 93005; 94618; 94640; 96361; 96365; 96366; 96367; 96375; 97162; 97530; 99291; J1650; 81003; 81015; 82728; 83036; 83605; 83615; 83735; 84100; 84443; 84484; 85025; 85379; 85610; 85730; 86140; 87899; 93010; 93306; 93970; 94660; 99232; 99233; 99239; J0131; J0248; J1100; J1940; J1941; J2060; J2997; J3480; J3490

== ENCOUNTER 2021-11-23 02:15 | Outpatient (CLI) | payer SELFPAY ==
--- NOTE | 2021-11-22 09:04 | PT.INDS ---
Date of service: 11/22/21 PT Notes Physical Therapy Inpatient Discharge Summary Date: 11/22/2021 Dates of Service: 11/09/2021 through 11/12/2021 This is a clinical summary of care provided for the duration of dates listed above. No charge was made in the completion of this documentation. Referring Doctor: Jarod Iglesias MD PT Orders: PT CONSULT: Eval/Treat Precautions: Fall. Standard. Activity as tolerated. Patient Profile/Admitting Diagnosis: Shira is a 51-year-old female patient with acute respiratory failure, newly diagnosed diabetes mellitus, and obesity referred for physical therapy for extended stay weakness. PMHX: All Active Problems (Updated 10/27/21 @ 18:01 by Aubrie Lewis MD) Discharge planning issues (Acute) DVT prophylaxis (Acute) Metabolic acidosis (Acute) Dehydration (Acute) Newly diagnosed diabetes (Acute) Acute respiratory failure with hypoxia (Acute) COVID-19 (Acute) Medical History (Updated 10/27/21 @ 18:01 by Aubrie Lewis MD) Obesity (BMI 30-39.9) Surgical History (Updated 08/20/18 @ 14:37 by [employer]) section Social History/Home Situation: Patient lives in a private home independent with all ADLs prior to admission. Works as an insurance agency owner. Equipment Owned/DME: None Subjective: NT. See most recent SIDE SEAM ENVELOPE MACHINE OPERATOR notes. Objective: General Observation: NT. See most recent SIDE SEAM ENVELOPE MACHINE OPERATOR notes. Mental Status: NT. See most recent SIDE SEAM ENVELOPE MACHINE OPERATOR notes. Pain: NT. See most recent SIDE SEAM ENVELOPE MACHINE OPERATOR notes. Vital Signs: NT. See most recent SIDE SEAM ENVELOPE MACHINE OPERATOR notes. ROM: Right Upper Extremity: Shoulder Flexion WFL. Shoulder abduction WFL. Elbow flexion WFL. Wrist flexion WFL. Functional opening and closing of hand WFL. Left Upper Extremity: Shoulder Flexion WFL. Shoulder abduction WFL. Elbow flexion WFL. Wrist flexion WFL. Functional opening and closing of hand WFL. Right Lower Extremity: Hip flexion WFL. Hip abduction WFL. Knee flexion WFL. Ankle dorsiflexion WFL. Ankle plantarflexion WFL. Left Lower Extremity: Hip flexion WFL. Hip abduction WFL. Knee flexion WFL. Ankle dorsiflexion WFL. Ankle plantarflexion WFL. Strength: Right Upper Extremity: Shoulder flexors 4/5. Shoulder abductors 4/5. Elbow flexors 5/5. Elbow extensors 4/5. Garbage Collector Supervisor strong. Left Upper Extremity: Shoulder flexors 4/5. Shoulder abductors 4/5. Elbow flexors 5/5. Elbow extensors 4/5. Garbage Collector Supervisor strong. Right Lower Extremity: Hip flexors 4/5. Hip abductors 4/5. Knee flexors 5/5. Knee extensors 4/5. Ankle dorsiflexors 5/5. Ankle plantarflexors 5/5. Left Lower Extremity: Hip flexors 4/5. Hip abductors 4/5. Knee flexors 5/5. Knee extensors 4/5. Ankle dorsiflexors 5/5. Ankle plantarflexors 5/5. Bed Mobility/Transfers: Rolling independent Supine to sit independent Sit to supine independent Sit to stand independent Stand to sit independent Bed to reclining chair independent Gait: Instructed patient with level surface ambulation of 200 feet independently. Oxygen saturation levels at 90% on 10-15 L/min Balance: Static Sitting: Normal Dynamic Sitting: Normal Static Standing: Good Dynamic Standing: Fair Assessment: Patient demonstrates functional mobility improvement for this episode of care as evidenced by mobility level above and goal status below. Patient presents with clinical signs and symptoms consistent with current/admitting diagnoses that have resulted to mobility limitations, gait instability, generalized weakness, and overall ADL decline as demonstrated by the following impairment level findings: 1. Impaired activity tolerance 2. Shortness of breath Impairments are contributing to the following functional limitations: 1. Increased completion time for mobility ADL performance Goals: Goals X1 week 1. Supine-Sit independent MET 2. Sit-Supine independent MET 3. Sit-Stand independent MET 4. Stand-Sit independent with no AD MET 5. Bed-Chair independent with no AD MET 6. Chair-Bed independent with no AD MET 7. Independent gait on level surface with use of no AD for at least 500 feet without report of pain nor dyspnea NOT MET 8. Independent stair negotiation while holding onto no rails for at least 5 steps without report of pain nor dyspnea NOT MET 9. Independent with home exercise program MET 10. Good static and dynamic standing balance/tolerance MET DISCHARGE RECOMMENDATIONS: [] Home with no services [] [X] Home with services. Patient will benefit from home health PT services in order to progress mobility level using least restrictive assistive ambulatory device, assess home safety, identify additional equipment needs, and establish a functional maintenance program that will increase ability of patient to remain at home. [] Home with outpatient PT [] [] SNF for continued rehabilitation [] [] [facility] [] [] SNF versus LTC based on ability to participate and progress [] TREATMENT CODE/TIME: NC Thank you for the opportunity to participate in the care of this patient. Sara Collado PT, DPT, CLT [facility] [place], [place]
--- NOTE | 2021-11-23 13:12 | W.DIABETESNO ---
Date of service: 11/23/21 Time of Service: 13:12 Diabetes Note Reason for Visit: Uncontrolled diabetes NOTE: Left message for Shira as did not come to her scheduled appt. Suspect did not attend due to not having insurance. Called /left message to let her know that she can apply for financial help from [facility]. Left contact information. Time Spent in Nutritional Counseling and Treatment: 0
== END 2021-11-23 02:16 | disposition home or self-care (01) ==
LOC: DS 02:15
PROVIDERS: Visit Provider Dietitian, Registered

== ENCOUNTER 2022-09-26 03:35 | Outpatient (CLI) | payer BC, SELFPAY ==
[2022-09-26] MEDS: Inhaler, Assist Device 1 EACH MC (11:17)
[2022-09-26] MEDS: Albuterol HFA 18 GM 200 PUFF INH IH (11:17)
--- NOTE | 2022-09-26 15:39 | PFT_ITS ---
Date of service: 09/26/22 Time of Service: 10:00 Pulmonary Function Test Result Requesting Provider Annalisee Indications: [facility] Interpretation Spirometry: There is no airflow limitation. There is no significant bronchodilator response. There is restrictive appearing spirometry. Lung Volumes: There is mild restrictive lung disease Diffusion Capacity: Normal diffusion Airway Pressure: Normal airways resistance Impression Mild restrictive lung disease with a normal diffusion. This may be due to mechanical restriction from obesity or neuromuscular weakness. Clinical Correlation therefore is recommended.
== END 2022-09-26 03:36 | disposition home or self-care (01) ==
PROVIDERS: Visit Provider Student in an Organized Health Care Education/Training Program
DX: U09.9 Post COVID-19 condition, unspecified (principal); J98.4 Other disorders of lung
CPT/HCPCS: 94060; 94726; 94729